=== PATIENT | male | born 1965 | race Caucasian/White ===

== ENCOUNTER 2016-09-22 10:48 | Inpatient (IN) | payer SELFPAY ==
[2016-09-22] VITALS (12 sets, daily range): BP systolic 101–135; BP diastolic 58–81
[~2016-09-22] VITALS: Ht 175.3 cm; Wt 72.6 kg
[~2016-09-22 10:48] MED LIST: ACET325T9 PO; ASPI-482 PO; ASPI325T4 PO; ATOR40TA PO; ATORVASTATIN CA80 MG PO; Aspirin PO; CARV3.122 PO; CLOP75TA PO; ISOS30TA4 PO; LISI-334 PO; METO25TA2 PO; NITR0.4T6 SL
[2016-09-22] MEDS ORDERED: NITROGLYCERIN SUBLINGUAL 0.4 MG BOTTLE OF 25. SL ONE (11:13)
[2016-09-22] MEDS ORDERED: ASPIRIN CHEWABLE 81 MG TABLET. PO ONE (11:15)
[2016-09-22] MEDS ORDERED: IV NORMAL SALINE 1000ML BAG 1,000 ML IV SCH ×2 (11:15→13:01)
[2016-09-22] MEDS ORDERED: NITROGLYCERIN SUBLINGUAL 0.4 MG BOTTLE OF 25. SL PRN (11:15)
[2016-09-22 11:26] LABS: BASO # 0.1 x10^3/uL (0.0-0.2); BASO % 1 % (0-3); EOS % 3 % (0-3); HEMATOCRIT 40.3 % (39.0-53.0); HEMOGLOBIN 13.4 g/dL (13.0-17.5); LYMPH % 18 % (24-48); MEAN CORPUSCULAR HEMOGLOBIN 34 pg (25-35); MEAN CORPUSCULAR HGB CONC 33 g/dL (31-37); MEAN CORPUSCULAR VOLUME 102 fL (79-100); MONO % 9 % (0-9); NEUT % 70 % (31-73); PLATELET COUNT 207 x10^3/uL (140-400); RED BLOOD COUNT 3.94 x10^6/uL (4.30-5.70); RED CELL DISTRIBUTION WIDTH 14.1 % (11.5-14.5); WHITE BLOOD COUNT 11.1 x10^3/uL (4.0-11.0)
[2016-09-22] MEDS: MORPHINE SULFATE 4 MG/ML DISP.SYRIN. IV/SQ PRN ×2 (11:33→13:16)
[2016-09-22 11:35] LABS: CALCIUM 9.2 mg/dL (8.5-10.1); GFR 78.8; POTASSIUM 4.9 mmol/L (3.5-5.1)
[2016-09-22 11:45] LABS: POTASSIUM ISTAT 4.8 mmol/L (3.5-5.0)
[2016-09-22] MEDS ORDERED: ONDANSETRON PF 4 MG/2 ML VIAL. IV ONE (11:45)
--- NOTE | 2016-09-22 11:47 | RAD ---
Exam: AP portable chest. History: Chest pain beginning this morning. Comparison: 04/16/2015. Findings: The heart and mediastinal structures are within normal limits for size. Lungs are without infiltrate. No pneumothorax or pleural effusion is appreciated. Impression: 1. No acute cardiopulmonary process.
--- NOTE | 2016-09-22 12:12 | EKG ---
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
[2016-09-22] MEDS ORDERED: NITROGLYCERIN OINT 1 GM PACKET. TP ONE (12:15)
--- NOTE | 2016-09-22 12:36 | PDOC2 ---
PITA ZAVALA CHEMICAL LAB TECHNICIAN 09/22/16 1236: CARDIAC CONSULT DATE OF CONSULT Date of Consult DATE: 09/22/16 TIME: 12:26 REASON FOR CONSULT Reason for Consult: Chest pain REFERRING PHYSICIAN Referring Physician: Cordelia SOURCE Source: Chart review, Patient HISTORY OF PRESENT ILLNESS HISTORY OF PRESENT ILLNESS This is a pleasant 51 yo male admitted for complains of chest pain. Reports that he woke up this morning feeling clammy then he started having retrosternal chest tightness that eventually radiated between his shoulder blades and heaviness to both his arms. No nausea or SOA but this felt like his symptoms from when he had LHC in 2014. It took 30 minutes before his discomfort started decreasing with use of 2 NTG then restarted back 30 minutes later and took another NTG and decided to call EMS. EMS EKG with noted changes. Upon admission his troponin was also mildly elevated and continuously been having intermittent chest pain. He has ran out of imdur 3 days ago and has not taken ASA for 2 weeks. PAST MEDICAL HISTORY Past Medical History Cardiovascular: CAD, HTN, CO (NSTEMI), Hyperlipidemia Pulmonary: No pertinent hx CENTRAL NERVOUS SYSTEM: Other (No pertinent history) GI: GERD Heme/Onc: No pertinent hx Hepatobiliary: No pertinent hx Psych: Anxiety, Other (alcohol abuse) Musculoskeletal: Other (No pertinent history) Rheumatologic: No pertinent hx Infectious disease: No pertinent hx ENT: No pertinent hx Renal/: No pertinent hx Endocrine: No pertinent hx Dermatology: No pertinent hx PAST SURGICAL HISTORY Past Surgical History 12/31/2014 Coronary artery disease s/p PCI to lcx 2.75/12 Bare metal stent and PCI of the ostial/proximal D1 and mid D1 with implantation of Xience 2.25/15 and Resolute 2.25/14 JAMA stents, respectively Hernia repair FAMILY HISTORY Family History Coronary Artery Disease (father) SOCIAL HISTORY Social History Smoke: <1 pack per day ALCOHOL: occasional Drugs: None Lives: Alone CURRENT MEDICATIONS CURRENT MEDICATIONS Current Medications Medications (Trade) Dose Ordered Sig/Kieran Route PRN Reason Start Time Stop Time Status Last Admin Dose Admin Aspirin (Children'S Aspirin) 324 mg 1X ONCE PO 09/22/16 11:15 09/22/16 11:20 DC 09/22/16 11:15 Morphine Sulfate 4 mg 4 mg PRN Q15MIN PRN IV/SQ PAIN GREATER THAN 3/10 09/22/16 11:15 09/23/16 11:14 09/22/16 11:33 Sodium Chloride (Iv Sodium Chloride 0.9% 1000ml Bag) 1,000 ml @ 1,000 mls/hr Q1H IV 09/22/16 11:15 09/22/16 12:14 DC 09/22/16 11:33 Nitroglycerin (Nitrostat) 0.4 mg PRN Q5MIN PRN SL CHEST PAIN 09/22/16 11:15 09/22/16 12:03 Lorazepam (Ativan) 2 mg 1X ONCE IV 09/22/16 11:45 09/22/16 11:46 DC 09/22/16 11:47 Ondansetron HCl (Zofran) 8 mg 1X ONCE IV 09/22/16 11:45 09/22/16 11:46 DC 09/22/16 11:47 Nitroglycerin (Nitro-Bid Oint) 1 inch 1X ONCE TP 09/22/16 12:15 09/22/16 12:16 DC 09/22/16 12:08 ALLERGIES ALLERGIES: Coded Allergies: No Known Drug Allergies (Unverified , 05/29/14) ROS Review of System 14 point ROS evaluated with pertinent positives noted per HPI PHYSICAL EXAM General: Alert, Oriented X3, Cooperative, No acute distress HEENT: Atraumatic, Mucous membr. moist/pink Lungs: Clear to auscultation, Normal air movement Heart: Regular rate (SR), Normal S1, Normal S2 Abdomen: Soft, No tenderness Extremities: No cyanosis, No edema Skin: No breakdown, No significant lesion Neuro: Normal speech, Sensation intact Psych/Mental Status: Mental status NL, Mood NL MUSCULOSKELETAL: Osteoarthritic changes both hands VITALS VITALS Vital Signs Date Time Temp Pulse Resp B/P Pulse Ox O2 Delivery O2 Flow Rate FiO2 09/22/16 12:08 111 138/83 09/22/16 10:49 98.4 20 99 Room Air 98.4 LABS Lab: Laboratory Tests Test 09/22/16 11:15 09/22/16 11:41 White Blood Count 11.1x10^3/uL (4.0-11.0) Red Blood Count 3.94x10^6/uL (4.30-5.70) Hemoglobin 13.4g/dL (13.0-17.5) Hematocrit 40.3% (39.0-53.0) Mean Corpuscular Volume 102fL (79-100) Mean Corpuscular Hemoglobin 34pg (25-35) Mean Corpuscular Hemoglobin Concent 33g/dL (31-37) Red Cell Distribution Width 14.1% (11.5-14.5) Platelet Count 207x10^3/uL (140-400) Neutrophils (%) (Auto) 70% (31-73) Lymphocytes (%) (Auto) 18% (24-48) Monocytes (%) (Auto) 9% (0-9) Eosinophils (%) (Auto) 3% (0-3) Basophils (%) (Auto) 1% (0-3) Neutrophils # (Auto) 7.8x10^3uL (1.8-7.7) Lymphocytes # (Auto) 2.0x10^3/uL (1.0-4.8) Monocytes # (Auto) 1.0x10^3/uL (0.0-1.1) Eosinophils # (Auto) 0.3x10^3/uL (0.0-0.7) Basophils # (Auto) 0.1x10^3/uL (0.0-0.2) Sodium Level 136mmol/L (136-145) Potassium Level 4.9mmol/L (3.5-5.1) Chloride Level 101mmol/L (98-107) Carbon Dioxide Level 25mmol/L (21-32) Anion Gap 10 (6-14) 18mmol/L (6-14) Blood Urea Nitrogen 24mg/dL (8-26) Creatinine 1.0mg/dL (0.7-1.3) Estimated GFR (Cockcroft-Gault) 78.8 Glucose Level 106mg/dL (70-99) 100mg/dL (70-99) Calcium Level 9.2mg/dL (8.5-10.1) Troponin I Quantitative 0.241ng/mL (0.000-0.055) YT-Uyy-P-Type Natriuretic Peptide 64pg/mL (0-124) Lipase 147U/L (73-393) Bedside Hemoglobin 14.3g/dL (14-18) Bedside Hematocrit 42% (37-52) Bedside Sodium 137mmol/L (135-145) Bedside Potassium 4.8mmol/L (3.5-5.0) Bedside Chloride 102mmol/L (98-110) Bedside Total CO2 23mmol/L (23-32) Bedside Blood Urea Nitrogen 24mg/dL (8-26) Bedside Creatinine 0.9mg/dL (0.5-1.4) Bedside Ionized Calcium (Carla) 1.16mmol/L (1.13-1.32) ECHOCARDIOGRAM ECHOCARDIOGRAM <Conclusion> Normal LV systolic function without significant regional wall motion abnormalities. EF 55% No significant valvular heart disease. DATE: 01/01/15 0931 STRESS TEST STRESS TEST Conclusion 1. No evidence of stress induced arrhythmias. 2. Normal LV perfusion at stress and rest. 3. Normal LVEF with stress. 4. Low risk study. DATE: 04/17/15 1335 HEART CATH HEART CATH FINAL DIAGNOSIS: 1. High risk unstable angina 2. Two vessel coronary artery disease (LAD, Lcx) 3. / bare metal stent patent in the proximal OM1. 4. Successful PCI of the ostial/proximal D1 and mid D1 with implantation of Xience 2.25/15 and Resolute 2.25/14 JAMA stents, respectively. 5. Angioseal closure of the [facility] arterial access site. RECOMMENDATIONS: 1. ASA 81mg daily indefinitely. 2. Plavix 75mg daily for at least 1 year, prefer indefinite therapy. 3. Atorvastatin 80mg daily 4. Aggressive risk factor modification with referral to cardiac rehab. 5. Follow up in Cardiology clinic in 4-[address] Marcano. DATE: 12/31/14 1624 ASSESSMENT/PLAN ASSESSMENT/PLAN 1. NSTEMI: ACS 2. CAD: 2 PCI/stent with last event in 12/2014 as noted above 3. HTN: controlled 4. HLP: not on goal 5. Tobaccoism 6. Possible alcoholism Recommendations 1. Discussed risks and benefits with pt and agreeable to proceed with [facility] 2. Secondary prevention to commence post [facility]. 3. Smoking cessation 4. Replace Mg Problems: LEATHA MARCANO MD 09/22/16 2234: CARDIAC CONSULT ALLERGIES ALLERGIES: Coded Allergies: No Known Drug Allergies (Unverified , 05/29/14) ASSESSMENT/PLAN ASSESSMENT/PLAN Pt. seen and examined. Agree with above MOTION STUDY TECHNICIAN note. 51 y.o man who presented with CP, dynamic EKG changes and positive troponin. He was taken emergently to the casting house lab[facility]. He was found to have a proxima/ostial LAD stenosis at the site of the bifurcation of D1 where a previous ostial stent was placed. Due to nature of prior stent/anatomy, there was difficulty advancing equipment through the LAD. Patient was started on anti-platelet therapy with heparin and tirofiban. He is doing well now without cp. Options of two vessel CABG versus high risk PCI with rotational atherectomy was discussed. Final decision pending patient preference. I discussed the case with Dr. Camacho of cardiac surgery. Will await patient decision, had extensive discussion with him about r/b/a to surgery. Problems: PITA ZAVALA APRN Sep 22, 2016 12:36 LEATHA MARCANO MD Sep 22, 2016 22:34
[2016-09-22 12:53] LABS: MAGNESIUM 1.3 mg/dL (1.8-2.4)
[2016-09-22 12:55] LABS: CHOLESTEROL/HDL RATIO 3.1
[2016-09-22] MEDS ORDERED: MIDAZOLAM HCL/PF 2 MG/2 ML VIAL. ONE (13:06)
[2016-09-22] MEDS ORDERED: fentaNYL PF VIAL 100 MCG/2 ML VIAL ONE (13:06)
[2016-09-22] MEDS ORDERED: VERAPAMIL 5 MG/2 ML VIAL. ONE (13:08)
[2016-09-22] MEDS ORDERED: HEPARIN for IV BOLUS 10,000 UNIT/10 ML VIAL. ONE (13:08)
[2016-09-22] MEDS ORDERED: NITROGLYCERIN 200 MCG/2 ML SYRINGE FOR CATH/VASC LAB. ONE (13:08)
[2016-09-22] MEDS ORDERED: IOHEXOL 300 MG/ML 100ML VIAL. ONE ×2 (13:30→14:34)
[2016-09-22] MEDS ORDERED: fentaNYL PF VIAL 100 MCG/2 ML VIAL IV PRN (13:30)
[2016-09-22] MEDS ORDERED: ONDANSETRON PF 4 MG/2 ML VIAL. IV PRN (13:30)
[2016-09-22] MEDS ORDERED: LIDOCAINE 2% 20 ML VIAL. ONE (13:30)
--- NOTE | 2016-09-22 13:45 | PHYS DOC ---
Past Medical History Past Medical History: CAD Past Surgical History: Other Additional Past Surgical Histo: cardiac stent placement Alcohol Use: Heavy Drug Use: None Adult General Chief Complaint Chief Complaint: CHEST PAIN HPI HPI Patient is a 51 year old male presenting to the emergency department for evaluation of substernal chest pressure radiating to both arms that started shortly prior to arrival which was relieved with nitroglycerin having the pain is coming back. He has shortness of breath and nausea with his symptoms but no vomiting or diaphoresis. He has a history of [address] David warren 1.5 years ago. He appears quite anxious and he admits that he drinks alcohol and did not drink since yesterday. Review of Systems Review of Systems Constitutional: Denies fever or chills [] Eyes: Denies change in visual acuity, redness, or eye pain [] HENT: Denies nasal congestion or sore throat [] Respiratory: Denies cough. + shortness of breath [] Cardiovascular: +CP GI: Denies abdominal pain. + nausea. No vomiting, bloody stools or diarrhea [] : Denies dysuria or hematuria [] Musculoskeletal: Denies back pain or joint pain [] Integument: Denies rash or skin lesions [] Neurologic: Denies headache, focal weakness or sensory changes [] Current Medications Current Medications Current Medications Medications (Trade) Dose Ordered Sig/Kieran Start Time Stop Time Status Last Admin Dose Admin Aspirin (Children'S Aspirin) 324 mg 1X ONCE 09/22/16 11:15 09/22/16 11:20 DC 09/22/16 11:15 324 MG Lorazepam (Ativan) 2 mg 1X ONCE 09/22/16 11:45 09/22/16 11:46 DC 09/22/16 11:47 2 MG Morphine Sulfate 4 mg 4 mg PRN Q15MIN PRN 09/22/16 11:15 09/23/16 11:14 09/22/16 13:16 4 MG Nitroglycerin (Nitrostat) 0.4 mg PRN Q5MIN PRN 09/22/16 11:15 09/22/16 12:03 0.4 MG Ondansetron HCl (Zofran) 8 mg 1X ONCE 09/22/16 11:45 09/22/16 11:46 DC 09/22/16 11:47 8 MG Sodium Chloride (Iv Sodium Chloride 0.9% 1000ml Bag) 1,000 ml @ 1,000 mls/hr Q1H 09/22/16 11:15 09/22/16 12:14 DC 09/22/16 11:33 1,000 MLS/HR Allergies Allergies Allergies Coded Allergies Type Severity Reaction Last Updated Verified No Known Drug Allergies 05/29/14 No Physical Exam Physical Exam Constitutional: Well developed, well nourished, no acute distress, non-toxic appearance. [] HENT: Normocephalic, atraumatic, bilateral external ears normal, oropharynx moist, no oral exudates, nose normal. [] Eyes: PERRLA, EOMI, conjunctiva normal, no discharge. [] Neck: Normal range of motion, no tenderness, supple, no stridor. [] Cardiovascular:Heart rate regular rhythm, no murmur [] Lungs & Thorax: Bilateral breath sounds clear to auscultation [] Abdomen: Bowel sounds normal, soft, no tenderness, no masses, no pulsatile masses. [] Skin: Warm, dry, no erythema, no rash. [] Back: No tenderness, no CVA tenderness. [] Extremities: No tenderness, no cyanosis, no clubbing, ROM intact, no edema. [] Neurologic: Alert and oriented X 3, normal motor function, normal sensory function, no focal deficits noted. [] Psychologic: Affect normal, judgement normal, mood normal. [] Current Patient Data Vital Signs Vital Signs Date Time Temp Pulse Resp B/P Pulse Ox O2 Delivery O2 Flow Rate FiO2 09/22/16 12:03 103 135/83 09/22/16 11:55 16 92 09/22/16 10:49 98.4 Room Air 98.4 Lab Values Laboratory Tests Test 09/22/16 11:15 09/22/16 11:41 White Blood Count 11.1x10^3/uL (4.0-11.0) H Red Blood Count 3.94x10^6/uL (4.30-5.70) L Hemoglobin 13.4g/dL (13.0-17.5) Hematocrit 40.3% (39.0-53.0) Mean Corpuscular Volume 102fL (79-100) H Mean Corpuscular Hemoglobin 34pg (25-35) Mean Corpuscular Hemoglobin Concent 33g/dL (31-37) Red Cell Distribution Width 14.1% (11.5-14.5) Platelet Count 207x10^3/uL (140-400) Neutrophils (%) (Auto) 70% (31-73) Lymphocytes (%) (Auto) 18% (24-48) L Monocytes (%) (Auto) 9% (0-9) Eosinophils (%) (Auto) 3% (0-3) Basophils (%) (Auto) 1% (0-3) Neutrophils # (Auto) 7.8x10^3uL (1.8-7.7) H Lymphocytes # (Auto) 2.0x10^3/uL (1.0-4.8) Monocytes # (Auto) 1.0x10^3/uL (0.0-1.1) Eosinophils # (Auto) 0.3x10^3/uL (0.0-0.7) Basophils # (Auto) 0.1x10^3/uL (0.0-0.2) Sodium Level 136mmol/L (136-145) Potassium Level 4.9mmol/L (3.5-5.1) Chloride Level 101mmol/L (98-107) Carbon Dioxide Level 25mmol/L (21-32) Anion Gap 10 (6-14) 18mmol/L (6-14) H Blood Urea Nitrogen 24mg/dL (8-26) Creatinine 1.0mg/dL (0.7-1.3) Estimated GFR (Cockcroft-Gault) 78.8 Glucose Level 106mg/dL (70-99) H 100mg/dL (70-99) H Calcium Level 9.2mg/dL (8.5-10.1) Magnesium Level 1.3mg/dL (1.8-2.4) L Troponin I Quantitative 0.241ng/mL (0.000-0.055) GS-Hnt-V-Type Natriuretic Peptide 64pg/mL (0-124) Triglycerides Level 57mg/dL (0-150) Cholesterol Level 206mg/dL (0-200) H LDL Cholesterol, Calculated 128mg/dL (0-100) H VLDL Cholesterol, Calculated 11mg/dL (0-40) Non-HDL Cholesterol Calculated 139mg/dL (0-129) H HDL Cholesterol 67mg/dL (40-60) H Cholesterol/HDL Ratio 3.1 Lipase 147U/L (73-393) POC Hemoglobin 14.3g/dL (14-18) POC Hematocrit 42% (37-52) POC Sodium 137mmol/L (135-145) POC Potassium 4.8mmol/L (3.5-5.0) POC Chloride 102mmol/L (98-110) POC Total CO2 23mmol/L (23-32) POC Blood Urea Nitrogen 24mg/dL (8-26) POC Creatinine 0.9mg/dL (0.5-1.4) POC Ionized Calcium (Carla) 1.16mmol/L (1.13-1.32) Laboratory Tests 09/22/16 11:15 Laboratory Tests 09/22/16 11:15 09/22/16 11:41 EKG EKG Normal sinus rhythm with normal axis and no deviation with no obvious ST elevation or depression. Radiology/Procedures Radiology/Procedures [] Course & Med Decision Making Course & Med Decision Making Patient with an STEMI and he was given aspirin and I spoke to the cardiology mid -level and he did not want any further anticoagulation at this time. Patient is going to go to [employer] [facility]. Dragon Disclaimer Dragon Disclaimer This electronic medical record was generated, in whole or in part, using a voice recognition dictation system. Departure Departure Impression: Primary Impression: NSTEMI (non-ST elevated myocardial infarction) Disposition: 09 ADMITTED INPATIENT Admitting Physician: Malachi Barton Condition: STABLE Referrals: BROOKS RAM (PCP) RANDY KNOWLES DO Sep 22, 2016 13:45
[2016-09-22] MEDS ORDERED: TIROFIBAN 12.5MG -0.9% NS 250 ML IV ONE (13:51)
--- NOTE | 2016-09-22 13:56 | ACF ---
Admission Forms Criteria MYOCARDIAL INFARCTION Clinical Indications for Admission to Inpatient Care (Place 'X' for any and all applicable criteria): Admission is indicated for 1 or more of the following (1)(2)(3)(4): [X]I. Acute VA [ ]II. Contraindications and/or Inappropriate clinical situations for Observational Care in patients with Myocardial Infarction, when ANY ONE of the following is required: [ ]a) Patient with High risk of cardiac embolism (e.g, patients with previous cardiac embolism, LVEF < 40%, age >75 and patients with prosthetic valve) 18 [ ]b) Patient with Moderate risk including DM patient, CAD and patient aged 65-75 18 [ ]c) Patient with any change in cardiac biomarker especially troponin should be managed as high risk in an inpatient setting 19 [ ]d) Physician judgement irrespective of ECG and other diagnostic findings 20 [ ]III.General contraindications and/or Inappropriate clinical situations for Observational Care in patients with Myocardial Infarction, when ANY ONE of the following is required: [ ]a) Prediction of prolongation of LOS based on ANY ONE of the following may be considered as a contraindication for observational care 2, 3, 4, 5, 6, 7, 8, 9, 10, 11 [ ]i) Age > 65 yrs. [ ]ii) Patient arriving by ambulance [ ]iii) Patient with high acuity [ ]iv) Patient requiring vital sign monitoring [ ]v) Patient on IV medication [ ]b) Systolic blood pressures greater than or equal to 180mmHg 3,12 [ ]c) Patient with altered mental status including delirium and other alteration of consciousness, (3) [ ]d) Patient whose discharge disposition will be to a custodial home or rehabilitation home should not be managed in Emergency Department Observation Unit. CMS rule requires 3 days hospital stay before such placement. 3,13 [ ]e) Patient with failure to thrive due to broad array of etiologies 3 ,16,17 [ ]f) Inability to ambulate 3,14 Extended stay beyond goal length of stay may be needed for (1)(18)(20)(24)(25): [ ]a) Hemodynamic instability, persisting symptoms after intensive medical management, or recurring severe, prolonged symptoms [ ]b) Intravascular procedural complications such as acute vessel closure, stent thrombosis, stent malposition, or vessel dissection (26)(27)(28) [ ]c) Extravascular procedural complications such as retroperitoneal hematoma , pericardial effusion, or cardiac tamponade [ ]d) Entry site complications causing bleeding, hematoma or distal ischemia and requiring ongoing monitoring, surgical repair or surgical thrombectomy. Dangerous arrhythmia [ ]e) Complicated percutaneous coronary intervention (e.g., unsuccessful percutaneous coronary intervention or percutaneous coronary intervention of non- campo vessel) [ ]f) Urgent or emergent surgery for complications of VA (e.g., ventricular rupture, valvular insufficiency) [ ]g) Surgical revascularization via coronary artery bypass graft [ ]h) Heart failure (e.g., pulmonary edema) [ ]i) Unstable pulmonary comorbidities, including COPD or pneumonia (31) [ ]j) Acute renal failure The original [employer] content created by [employer] has been revised. The portions of the content which have been revised are identified through the use of italic text or in bold, and [employer] [facility] [employer] has neither reviewed nor approved the modified material. All other unmodified content is copyright [employer] [facility] [employer] Please see references footnoted in the original [employer] [facility] [employer] edition 2016 Admission Criteria Met?: Yes RAYSA ROJAS Sep 22, 2016 13:56
[2016-09-22] MEDS ORDERED: TIROFIBAN 12.5MG -0.9% NS 250 ML IV PRN (13:57)
[2016-09-22] MEDS ORDERED: MAGNESIUM SULFATE 2GM 50 ML IV ONE (14:00)
[2016-09-22] MEDS ORDERED: HEPARIN for IV BOLUS 10,000 UNIT/10 ML VIAL. IV ONE (14:15)
[2016-09-22] MEDS ORDERED: LIDOCAINE 2% 20 ML VIAL. IJ ONE (14:15)
[2016-09-22] MEDS ORDERED: IOHEXOL 300 MG/ML 100ML VIAL. IART ONE (14:15)
[2016-09-22] MEDS ORDERED: MIDAZOLAM HCL/PF 2 MG/2 ML VIAL. IV ONE (14:15)
[2016-09-22] MEDS ORDERED: NITROGLYCERIN 200 MCG/2 ML SYRINGE FOR CATH/VASC LAB. IART ONE ×2 (14:15→14:38)
[2016-09-22] MEDS ORDERED: VERAPAMIL 5 MG/2 ML VIAL. IART ONE (14:15)
[2016-09-22] MEDS ORDERED: HEPARIN for IV BOLUS 10,000 UNIT/10 ML VIAL. IART ONE (14:15)
[2016-09-22] MEDS ORDERED: CONTRAST GIVEN MC PRN (14:30)
[2016-09-22] MEDS ORDERED: fentaNYL PF VIAL 100 MCG/2 ML VIAL IV ONE (14:30)
[2016-09-22] MEDS ORDERED: fentaNYL PF VIAL 100 MCG/2 ML VIAL IM ONE (14:30)
[2016-09-22] MEDS ORDERED: NITROGLYCERIN PREMIX 250 ML IV ONE (14:46)
[2016-09-22] MEDS ORDERED: HEPARIN for IV BOLUS 10,000 UNIT/10 ML VIAL. IV PRN (15:15)
[2016-09-22] MEDS: NITROGLYCERIN PREMIX 250 ML IV PRN (15:20)
[2016-09-22] MEDS ORDERED: HEPARIN 25,000UTS/500ML PREMIX 500 ML IV ONE (15:22)
[2016-09-22 15:28] LABS: PROTHROMBIN TIME PATIENT 12.4 SEC (11.7-14.0)
[2016-09-22] MEDS: HEPARIN 25,000UTS/500ML PREMIX 500 ML IV PRN (15:51)
[2016-09-22] MEDS ORDERED: TAMS0.4C2 PO (16:34)
[2016-09-22] MEDS ORDERED: ASPI-171 PO (16:34)
[2016-09-22] MEDS ORDERED: LISI10TA2 PO (16:34)
[2016-09-22] MEDS ORDERED: ATEN25TA PO (16:34)
--- NOTE | 2016-09-22 17:39 | CARD ---
APPROVED REPORT Procedure(s) performed: Coronary angiography PTCA D1, LAD HISTORY : The patient is a 51 year-old male with a history of . INDICATION The indication(s) include : non-STEMI . PROCEDURE NARRATIVE The patient was brought electively to the cardiac catheterization lab. A timeout was performed confi rming the patient's name, date of , procedure, and site of procedure. All necessary personnel w ere wearing the appropriate protective equipment and radiation monitor devices. After explaining the risks and benefits of the procedure and alternatives, informed consent was obtained. (See nursing no alize for medications administered). The right wrist was sterilely prepped and draped in the usual fas hion. The right wrist was infiltrated with 1 mL of 2% lidocaine for subcutaneous anesthesia. A 6 Fr ench Terumo glide sheath was inserted into the right radial artery without difficulty. Right and lef t coronary angiography was performed using a 6Fr TIG 4.0 catheter. HEMODYNAMICS: BP 104/76 CORONARY ANGIOGRAPHY: LM is a large caliber vessel with normal angiographic appearance. LAD is a large caliber vessel with a proximal 80% stenosis at the origin of the 1st diagonal. D1 is a moderate caliber vessel with a patent ostial/proximal stent, mid 50% stenosis followed by a p atent stent in the mid to distal portion. LCx is a small caliber non-dominant vessel with normal angiographic appearance. OM1 is a moderate caliber vessel with a widely patent proximal stent. RCA is a large caliber dominant vessel with normal angiographic appearance. RPDA and RPL are moderate to large caliber vessels with normal angiographic appearance. INTERVENTIONAL TECHNIQUE: Due to the presenting symptoms of chest pain, dynamic EKG changes suggestive of acute ischemia and an giographic findings and intervention was planned. Heparin and tirofiban were used for anti-coagulatio n. Next, through a 6 Kazakh EBU 3.5 guide catheter a 0.014 inch pro-water wire was advanced to the di stal LAD. Next a Terumo run-through wire was advanced to the distal first diagonal. Initial attempts to perform balloon angioplasty with a 3 mm x 20 mm balloon were unsuccessful. Subsequently a 2.0 mm b alloon was used to try to traverse the lesion but this was also unsuccessful. It was felt that there was likely stent protrusion from the ostium of the diagonal into the proximal LAD. The LAD was rewire d multiple times in an effort to avoid the stent struts and ultimately a 1.5 mm balloon was used to a ngioplasty the LAD stenosis. This resulted in stent shift and subtotal occlusion of the diagonal and therefore the diagonal vessel was rewired and gentle balloon angioplasty with a 2 mm balloon at 6 nelly resolved the subtotal occlusion and also improve the patient's significant ST changes that occurred with the subtotal occlusion of the first diagonal. Due to failed attempts at advancing a 1.5 mm balloon successfully without causing significant comprom ise of the diagonal vessel further intervention was deferred given that there was DONOVAN-3 flow in both the left anterior descending and first diagonal vessels. The guide catheter and wire were removed an d the right radial access site was covered with Terumo band and inflated to 15 mL of air. The patient was continued on a heparin drip and tirofiban drip. He was also administered intracoronary nitroglyc fern during the case and was also started on intravenous nitroglycerin at 20 mcg/kg/m. A preliminary cardiothoracic surgery consultation was obtained to determine further therapies. Conclusion 1. Two-vessel coronary artery disease involving the bifurcation of the LAD and first diagonal vessel. 2. Patent stents in the first obtuse marginal as well as the first diagonal. Recommendations Aggressive Medical Therapy Consideration of two-vessel bypass versus high risk PCI with rotational atherectomy.
[2016-09-22] MEDS: ATORVASTATIN CALCIUM 40 MG TABLET. PO SCH (21:09)
[2016-09-23] VITALS (12 sets, daily range): BP systolic 97–141; BP diastolic 59–88
--- NOTE | 2016-09-23 01:07 | HP ---
ADMIT DATE: 09/22/2016 CHIEF COMPLAINT: Chest pain. HISTORY OF PRESENT ILLNESS: The patient is a pleasant middle-aged white male who has known coronary artery disease. He already has one stent. He presented with chest pain. He states he has been having chronic angina for some time in fact he ran out of his nitro recently and now the pain is worsened. While in the ER, he was noted to have acute ST changes. He has now been taken emergently to the cath laboratory technician. I just arrived to the cath laboratory technician. Dr. Blackburn has just finished the cardiac cath. He has multivessel disease. He bypass surgery. PAST MEDICAL HISTORY: Coronary artery disease, diabetes, alcohol abuse, tobacco abuse. ALLERGIES: None. FAMILY HISTORY: Coronary artery disease. SOCIAL HISTORY: He does not take drugs, but he smokes and drinks. MEDICATIONS: Reviewed, please refer to the MRAD. REVIEW OF SYSTEMS: GENERAL: No history of weight change, weakness or fevers. SKIN: No bruising, hair changes or rashes. EYES: No blurred, double or loss of vision. NOSE AND THROAT: No history of nosebleeds, hoarseness or sore throat. HEART: He complaints of chest pain. LUNGS: Denies cough, hemoptysis, wheezing or shortness of breath. GASTROINTESTINAL: Denies changes in appetite, nausea, vomiting, diarrhea or constipation. GENITOURINARY: No history of frequency, urgency, hesitancy or nocturia. NEUROLOGIC: Denies history of numbness, tingling, tremor or weakness. PSYCHIATRIC: No history of panic, anxiety or depression. ENDOCRINE: No history of heat or cold intolerance, polyuria or polydipsia. EXTREMITIES: Denies muscle weakness, joint pain, pain on walking or stiffness. PHYSICAL EXAMINATION: VITAL SIGNS: Temperature afebrile, pulse 67, respirations 18, blood pressure 144/91. GENERAL: He is alert and cooperative, on the table, just finished his cath, he is a little anxious. HEART: Normal S1, S2. LUNGS: Clear, but diminished. ABDOMEN: Soft, positive bowel sounds. EXTREMITIES: No edema. SKIN: No rashes. PSYCHIATRIC: He seems a little anxious. VASCULAR: Good capillary refill. ENDOCRINE: No thyromegaly. LYMPHATICS: No cervical nodes. HEMATOPOIETIC: No bruising. LABORATORY DATA: Pending. EKG that was done in the ER showed acute ST changes. ASSESSMENT AND PLAN: [id number] progression of coronary artery disease with an acute event. The patient needs bypass surgery as stated above. We are going to consult Cardiovascular Surgery. For now, continue cardiac monitoring, serial enzymes, serial EKGs, anticoagulation with heparin, and antiplatelet therapy. PROGNOSIS: Guarded. HAYDEE ERIC DO DR: SHAHNAZ/betty JOB#: [id number] / [id number]
[2016-09-23 03:45] LABS: HEMATOCRIT 33.5 % (39.0-53.0); HEMOGLOBIN 11.2 g/dL (13.0-17.5); RED BLOOD COUNT 3.3 x10^6/uL (4.30-5.70); RED CELL DISTRIBUTION WIDTH 13.7 % (11.5-14.5); WHITE BLOOD COUNT 7.6 x10^3/uL (4.0-11.0)
[2016-09-23] MEDS: ISOSORBIDE MONONITRATE ER 30 MG TAB.ER.24H PO SCH (08:25)
[2016-09-23] MEDS: ASPIRIN 325 MG TABLET PO SCH (08:25)
--- NOTE | 2016-09-23 11:37 | PDOC ---
PROGRESS NOTES Chief Complaint Chief Complaint cc: chest pain, sob CAD with prior PCI/stenting diabetes, alcohol abuse tobacco abuse. History of Present Illness History of Present Illness patient seen and evaluted. no chest pain. discuss w/ nurse, family Vitals Vitals Vital Signs Date Time Temp Pulse Resp B/P Pulse Ox O2 Delivery O2 Flow Rate FiO2 09/23/16 08:25 82 125/83 09/23/16 08:00 98.0 12 98 Room Air 98.0 Physical Exam General: Alert, Oriented X3, Cooperative, No acute distress, Other (appear carl ) Heart: Regular rate (SR), Normal S1, Normal S2 Lungs: Clear, Other (negative accessory muscle use ) Abdomen: Soft, No tenderness, Other (obese) Extremities: No cyanosis, No edema Skin: No breakdown, No significant lesion Labs LABS Laboratory Tests Test 09/22/16 11:38 09/22/16 11:41 09/22/16 14:39 09/22/16 21:00 Bedside Troponin I 0.11ng/ml (<0.08) Bedside Hemoglobin 14.3g/dL (14-18) Bedside Hematocrit 42% (37-52) Bedside Sodium 137mmol/L (135-145) Bedside Potassium 4.8mmol/L (3.5-5.0) Bedside Chloride 102mmol/L (98-110) Bedside Total CO2 23mmol/L (23-32) Anion Gap 18mmol/L (6-14) Bedside Blood Urea Nitrogen 24mg/dL (8-26) Bedside Creatinine 0.9mg/dL (0.5-1.4) Glucose Level 100mg/dL (70-99) Bedside Ionized Calcium (Carla) 1.16mmol/L (1.13-1.32) Activated Clotting Time 268sec (92-181) Heparin Anti-Xa Act, Unfractionated 0.36IU/mL (0.30-0.70) Troponin I Quantitative 0.255ng/mL (0.000-0.055) Test 09/23/16 03:30 09/23/16 10:10 White Blood Count 7.6x10^3/uL (4.0-11.0) Red Blood Count 3.30x10^6/uL (4.30-5.70) Hemoglobin 11.2g/dL (13.0-17.5) Hematocrit 33.5% (39.0-53.0) Mean Corpuscular Volume 101fL (79-100) Mean Corpuscular Hemoglobin 34pg (25-35) Mean Corpuscular Hemoglobin Concent 34g/dL (31-37) Red Cell Distribution Width 13.7% (11.5-14.5) Platelet Count 170x10^3/uL (140-400) Heparin Anti-Xa Act, Unfractionated 0.24IU/mL (0.30-0.70) 0.25IU/mL (0.30-0.70) Troponin I Quantitative 0.296ng/mL (0.000-0.055) Review of Systems Review of Systems (+) generalized weakness Denies chest pain Assessment and Plan Assessmemt and Plan Problems Medical Problems: (1) NSTEMI (non-ST elevated myocardial infarction) Status: Acute Assessment/plan: 1.) chest pain 2.) CAD w/ prior stent 3.) Diabetes 4.) alchool use disorder 5.) current tobacco use Plan: 1.) recheck AM labs 2.) PT/OT 3.) appreciate subspecialty input 4.) monitor for withdrawal symptoms. ativan prn with multivitamins continue tobacco cessation counseling 5.) Scheduled CABG for monday per CT surgery 6.) probabl CAD with prior PCI/stenting diabetes, alcohol abuse tobacco abuse. Problems: Comment Review of Relevant I have reviewed the following items mike (where applicable) has been applied. Labs Laboratory Tests Test 09/22/16 11:15 09/22/16 11:38 09/22/16 11:41 09/22/16 14:39 White Blood Count 11.1x10^3/uL (4.0-11.0) Red Blood Count 3.94x10^6/uL (4.30-5.70) Hemoglobin 13.4g/dL (13.0-17.5) Hematocrit 40.3% (39.0-53.0) Mean Corpuscular Volume 102fL (79-100) Mean Corpuscular Hemoglobin 34pg (25-35) Mean Corpuscular Hemoglobin Concent 33g/dL (31-37) Red Cell Distribution Width 14.1% (11.5-14.5) Platelet Count 207x10^3/uL (140-400) Neutrophils (%) (Auto) 70% (31-73) Lymphocytes (%) (Auto) 18% (24-48) Monocytes (%) (Auto) 9% (0-9) Eosinophils (%) (Auto) 3% (0-3) Basophils (%) (Auto) 1% (0-3) Neutrophils # (Auto) 7.8x10^3uL (1.8-7.7) Lymphocytes # (Auto) 2.0x10^3/uL (1.0-4.8) Monocytes # (Auto) 1.0x10^3/uL (0.0-1.1) Eosinophils # (Auto) 0.3x10^3/uL (0.0-0.7) Basophils # (Auto) 0.1x10^3/uL (0.0-0.2) Prothrombin Time 12.4SEC (11.7-14.0) Prothromb Time International Ratio 1.0 (0.8-1.1) Sodium Level 136mmol/L (136-145) Potassium Level 4.9mmol/L (3.5-5.1) Chloride Level 101mmol/L (98-107) Carbon Dioxide Level 25mmol/L (21-32) Anion Gap 10 (6-14) 18mmol/L (6-14) Blood Urea Nitrogen 24mg/dL (8-26) Creatinine 1.0mg/dL (0.7-1.3) Estimated GFR (Cockcroft-Gault) 78.8 Glucose Level 106mg/dL (70-99) 100mg/dL (70-99) Calcium Level 9.2mg/dL (8.5-10.1) Magnesium Level 1.3mg/dL (1.8-2.4) Troponin I Quantitative 0.241ng/mL (0.000-0.055) OQ-Lce-M-Type Natriuretic Peptide 64pg/mL (0-124) Triglycerides Level 57mg/dL (0-150) Cholesterol Level 206mg/dL (0-200) LDL Cholesterol, Calculated 128mg/dL (0-100) VLDL Cholesterol, Calculated 11mg/dL (0-40) Non-HDL Cholesterol Calculated 139mg/dL (0-129) HDL Cholesterol 67mg/dL (40-60) Cholesterol/HDL Ratio 3.1 Lipase 147U/L (73-393) Bedside Troponin I 0.11ng/ml (<0.08) Bedside Hemoglobin 14.3g/dL (14-18) Bedside Hematocrit 42% (37-52) Bedside Sodium 137mmol/L (135-145) Bedside Potassium 4.8mmol/L (3.5-5.0) Bedside Chloride 102mmol/L (98-110) Bedside Total CO2 23mmol/L (23-32) Bedside Blood Urea Nitrogen 24mg/dL (8-26) Bedside Creatinine 0.9mg/dL (0.5-1.4) Bedside Ionized Calcium (Carla) 1.16mmol/L (1.13-1.32) Activated Clotting Time 268sec (92-181) Test 09/22/16 21:00 09/23/16 03:30 09/23/16 10:10 Heparin Anti-Xa Act, Unfractionated 0.36IU/mL (0.30-0.70) 0.24IU/mL (0.30-0.70) 0.25IU/mL (0.30-0.70) Troponin I Quantitative 0.255ng/mL (0.000-0.055) 0.296ng/mL (0.000-0.055) White Blood Count 7.6x10^3/uL (4.0-11.0) Red Blood Count 3.30x10^6/uL (4.30-5.70) Hemoglobin 11.2g/dL (13.0-17.5) Hematocrit 33.5% (39.0-53.0) Mean Corpuscular Volume 101fL (79-100) Mean Corpuscular Hemoglobin 34pg (25-35) Mean Corpuscular Hemoglobin Concent 34g/dL (31-37) Red Cell Distribution Width 13.7% (11.5-14.5) Platelet Count 170x10^3/uL (140-400) Laboratory Tests Test 09/22/16 11:38 09/22/16 11:41 09/22/16 14:39 09/22/16 21:00 Bedside Troponin I 0.11ng/ml (<0.08) Bedside Hemoglobin 14.3g/dL (14-18) Bedside Hematocrit 42% (37-52) Bedside Sodium 137mmol/L (135-145) Bedside Potassium 4.8mmol/L (3.5-5.0) Bedside Chloride 102mmol/L (98-110) Bedside Total CO2 23mmol/L (23-32) Anion Gap 18mmol/L (6-14) Bedside Blood Urea Nitrogen 24mg/dL (8-26) Bedside Creatinine 0.9mg/dL (0.5-1.4) Glucose Level 100mg/dL (70-99) Bedside Ionized Calcium (Carla) 1.16mmol/L (1.13-1.32) Activated Clotting Time 268sec (92-181) Heparin Anti-Xa Act, Unfractionated 0.36IU/mL (0.30-0.70) Troponin I Quantitative 0.255ng/mL (0.000-0.055) Test 09/23/16 03:30 09/23/16 10:10 White Blood Count 7.6x10^3/uL (4.0-11.0) Red Blood Count 3.30x10^6/uL (4.30-5.70) Hemoglobin 11.2g/dL (13.0-17.5) Hematocrit 33.5% (39.0-53.0) Mean Corpuscular Volume 101fL (79-100) Mean Corpuscular Hemoglobin 34pg (25-35) Mean Corpuscular Hemoglobin Concent 34g/dL (31-37) Red Cell Distribution Width 13.7% (11.5-14.5) Platelet Count 170x10^3/uL (140-400) Heparin Anti-Xa Act, Unfractionated 0.24IU/mL (0.30-0.70) 0.25IU/mL (0.30-0.70) Troponin I Quantitative 0.296ng/mL (0.000-0.055) Medications Current Medications Nitroglycerin (Nitrostat) 0.4 mg STK-MED ONCE SL ; Start 09/22/16 at 11:13; Stop 09/22/16 at 11:14; Status DC Aspirin (Children'S Aspirin) 324 mg 1X ONCE PO Last administered on 09/22/16t 11:15; Start 09/22/16 at 11:15; Stop 09/22/16 at 11:20; Status DC Morphine Sulfate 4 mg 4 mg PRN Q15MIN PRN IV/SQ PAIN GREATER THAN 3/10 Last administered on 09/22/16 13:16; Start 09/22/16 at 11:15; Stop 09/23/16 at 11:14 ; Status DC Sodium Chloride (Iv Sodium Chloride 0.9% 1000ml Bag) 1,000 ml @ 1,000 mls/hr Q1H IV Last administered on 09/22/16 11:33; Start 09/22/16 at 11:15; Stop at 12:14; Status DC Nitroglycerin (Nitrostat) 0.4 mg PRN Q5MIN PRN SL CHEST PAIN Last administered on 09/22/16 12:03; Start 09/22/16 at 11:15 Lorazepam (Ativan) 2 mg 1X ONCE IV Last administered on 09/22/16 11:47; Start 09/22/16 at 11:45; Stop 09/22/16 at 11:46; Status DC Ondansetron HCl (Zofran) 8 mg 1X ONCE IV Last administered on 09/22/16 11:47 ; Start 09/22/16 at 11:45; Stop 09/22/16 at 11:46; Status DC Nitroglycerin 1 inch 1 inch 1X ONCE TP Last administered on 09/22/16 12:08; Start 09/22/16 at 12:15; Stop 09/22/16 at 12:16; Status DC Sodium Chloride 1,000 ml @ 0 mls/hr Q0M IV ; Start 09/22/16 at 13:01; Stop at 13:00 Magnesium Sulfate/ Dextrose (Magnesium Sulfate PREMIX 2GM) 50 ml @ 25 mls/hr 1X ONCE IV Last administered on 09/22/16 13:17; Start 09/22/16 at 14:00; Stop 09/22/16 at 15:59; Status DC Atorvastatin Calcium (Lipitor) 80 mg QHS PO Last administered on 09/22/16 21: 09; Start 09/22/16 at 21:00 Fentanyl Citrate (Fentanyl 2ml Vial) 100 mcg STK-MED ONCE .ROUTE ; Start at 13:06; Stop 09/22/16 at 13:07; Status DC Midazolam HCl (Versed) 2 mg STK-MED ONCE .ROUTE ; Start 09/22/16 at 13:06; Stop 09/22/16 at 13:07; Status DC Nitroglycerin (Nitroglycerin) 200 mcg STK-MED ONCE .ROUTE ; Start 09/22/16 at 13 :08; Stop 09/22/16 at 13:09; Status DC Verapamil HCl (Verapamil) 5 mg STK-MED ONCE .ROUTE ; Start 09/22/16 at 13:08; Stop 09/22/16 at 13:09; Status DC Heparin Sodium (Porcine) (Heparin Sodium) 10,000 unit STK-MED ONCE .ROUTE ; Start 09/22/16 at 13:08; Stop 09/22/16 at 13:09; Status DC Ondansetron HCl (Zofran) 4 mg PRN Q8HRS PRN IV NAUSEA/VOMITING; Start 09/22/16 at 13:30; Stop 09/23/16 at 13:29 Fentanyl Citrate (Fentanyl 2ml Vial) 50 mcg PRN Q2HR PRN IV PAIN; Start at 13:30; Stop 09/23/16 at 13:29 Iohexol 100 ml 100 ml STK-MED ONCE .ROUTE ; Start 09/22/16 at 13:30; Stop at 13:31; Status DC Heparin Sodium/ Sodium Chloride 1,000 ml @ As Directed STK-MED ONCE .ROUTE ; Start 09/22/16 at 13:30; Stop 09/22/16 at 13:31; Status DC Lidocaine HCl 20 ml 20 ml STK-MED ONCE .ROUTE ; Start 09/22/16 at 13:30; Stop at 13:31; Status DC Heparin Sodium/ Sodium Chloride 500 ml @ As Directed STK-MED ONCE .ROUTE ; Start 09/22/16 at 13:32; Stop 09/22/16 at 13:33; Status DC Tirofiban/Sodium Chloride (Aggrastat 12.5 Mg/250 ml Premix) 250 ml @ As Directed STK-MED ONCE IV ; Start 09/22/16 at 13:51; Stop 09/22/16 at 13:52; Status DC Nitroglycerin (Nitroglycerin) 200 mcg 1X ONCE IART Last administered on t 15:13; Start 09/22/16 at 14:15; Stop 09/22/16 at 14:16; Status DC Verapamil HCl (Verapamil) 2.5 mg 1X ONCE IART Last administered on 09/22/16 15:15; Start 09/22/16 at 14:15; Stop 09/22/16 at 14:16; Status DC Heparin Sodium (Porcine) (Heparin Sodium) 2,500 unit 1X ONCE IART Last administered on 09/22/16 15:18; Start 09/22/16 at 14:15; Stop 09/22/16 at 14:16 ; Status DC Heparin Sodium/ Sodium Chloride 1,000 unit 1X ONCE IART Last administered on 15:16; Start 09/22/16 at 14:15; Stop 09/22/16 at 14:16; Status DC Heparin Sodium/ Sodium Chloride 1,000 unit 1X ONCE IART Last administered on 15:16; Start 09/22/16 at 14:15; Stop 09/22/16 at 14:16; Status DC Midazolam HCl (Versed) 2 mg 1X ONCE IV Last administered on 09/22/16 15:14; Start 09/22/16 at 14:15; Stop 09/22/16 at 14:16; Status DC Iohexol (Omnipaque 300 Mg/ml) 100 ml 1X ONCE IART Last administered on 15:15; Start 09/22/16 at 14:15; Stop 09/22/16 at 14:16; Status DC Heparin Sodium (Porcine) (Heparin Sodium) 4,000 unit 1X ONCE IV Last administered on 09/22/16 15:19; Start 09/22/16 at 14:15; Stop 09/22/16 at 14:16 ; Status DC Lidocaine HCl 20 ml 20 ml 1X ONCE IJ Last administered on 09/22/16 15:15; Start 09/22/16 at 14:15; Stop 09/22/16 at 14:16; Status DC Tirofiban/Sodium Chloride (Aggrastat 12.5 Mg/250 ml Premix) 250 ml @ 0 mls/hr CONT PRN IV PER PROTOCOL Last administered on 09/22/16 15:17; Start 09/22/16 at 13:57; Stop 09/23/16 at 07:56; Status DC Info (Do NOT chart on this entry -- for MONITORING) 1 each PRN DAILY PRN MC SEE COMMENTS; Start 09/22/16 at 14:30; Stop 09/24/16 at 14:29 Fentanyl Citrate (Fentanyl 2ml Vial) 50 mcg 1X ONCE IM ; Start 09/22/16 at 14: 30; Stop 09/22/16 at 14:31; Status Cancel Iohexol (Omnipaque 300 Mg/ml) 100 ml STK-MED ONCE .ROUTE ; Start 09/22/16 at 14: 34; Stop 09/22/16 at 14:35; Status DC Nitroglycerin 200 mcg 200 mcg 1X ONCE IART Last administered on 09/22/16 15: 13; Start 09/22/16 at 14:38; Stop 09/22/16 at 14:43; Status DC Nitroglycerin/ Dextrose 250 ml @ As Directed STK-MED ONCE IV ; Start 09/22/16 at 14:46; Stop 09/22/16 at 14:47; Status DC Nitroglycerin/ Dextrose 250 ml @ 0 mls/hr CONT PRN IV SEE I/O RECORD Last administered on 09/22/16 15:20; Start 09/22/16 at 15:00 Heparin Sodium/ Dextrose 500 ml @ 18 mls/hr CONT PRN IV SEE I/O RECORD Last administered on 09/22/16 15:51; Start 09/22/16 at 15:15 Heparin Sodium (Porcine) 1850 unit 1,850 unit PRN Q6HRS PRN IV FOR UFH LEVEL LESS THAN 0.2; Start 09/22/16 at 15:15 Heparin Sodium/ Dextrose 500 ml @ As Directed STK-MED ONCE IV ; Start 09/22/16 at 15:22; Stop 09/22/16 at 15:23; Status DC Fentanyl Citrate (Fentanyl 2ml Vial) 50 mcg 1X ONCE IV Last administered on 14:30; Start 09/22/16 at 14:30; Stop 09/22/16 at 16:14; Status DC Aspirin (Jocelyn Aspirin) 325 mg DAILYWBKFT PO Last administered on 09/23/16 08: 25; Start 09/23/16 at 08:00 Isosorbide Mononitrate (Imdur) 30 mg DAILY PO Last administered on 09/23/16 08 :25; Start 09/23/16 at 09:00 Active Scripts Active NITROGLYCERIN SubLingual (Nitroglycerin) 0.4 Mg Tab.subl 1 Tab SL UD Isosorbide Mononitrate Er (Isosorbide Mononitrate) 30 Mg Tab.er.24h 1 Tab PO DAILY Reported Tamsulosin Hcl 0.4 Mg Cap.er.24h 0.4 Mg PO DAILY Lisinopril 10 Mg Tablet 1 Tab PO DAILY Atenolol 25 Mg Tablet 1 Tab PO DAILY Lo-Dose Aspirin EC (Aspirin) 81 Mg Tablet.dr 81 Mg PO Atorvastatin Calcium 80 Mg Tablet 40 Mg PO HS Vitals/I & O Vital Sign - Last 24 Hours 09/22/16 09/22/16 09/22/16 09/22/16 11:55 12:03 12:08 12:30 Pulse 88 103 111 96 Resp 16 16 B/P 138/83 135/83 138/83 107/58 Pulse Ox 92 09/22/16 09/22/16 09/22/16 09/22/16 14:30 15:00 15:15 15:30 Pulse 82 97 97 Resp 16 20 B/P 135/81 116/64 Pulse Ox 98 98 98 O2 Delivery Room Air Room Air Room Air 09/22/16 09/22/16 09/22/16 09/22/16 16:00 16:00 16:00 16:30 Temp 98.2 98.2 98.2 98.2 Pulse 97 94 B/P 116/64 102/60 102/61 Pulse Ox 98 98 99 O2 Delivery Room Air Room Air Room Air Room Air 09/22/16 09/22/16 09/22/16 09/22/16 17:00 17:30 18:00 19:00 Pulse 86 76 92 86 Resp 22 B/P 111/68 112/75 122/67 101/58 Pulse Ox 98 98 99 94 O2 Delivery Room Air Room Air Room Air Room Air 09/22/16 09/22/16 09/22/16 09/22/16 20:00 20:00 21:00 22:00 Temp 98.2 98.2 Pulse 78 92 76 Resp 20 23 11 B/P 118/73 104/63 105/72 Pulse Ox 98 96 95 O2 Delivery Room Air Room Air Room Air Room Air 09/22/16 09/23/16 09/23/16 09/23/16 23:00 00:00 00:00 01:00 Temp 98.5 98.5 Pulse 80 82 80 Resp 13 15 B/P 109/66 110/60 113/65 Pulse Ox 95 94 96 O2 Delivery Room Air Room Air Room Air Room Air 09/23/16 09/23/16 09/23/16 09/23/16 02:00 03:00 04:00 04:00 Temp 98.2 98.2 Pulse 88 84 66 Resp 18 20 B/P 118/68 101/63 106/61 Pulse Ox 97 99 93 O2 Delivery Room Air Room Air Room Air Room Air 09/23/16 09/23/16 09/23/16 09/23/16 05:00 06:00 07:00 08:00 Temp 98.0 98.0 Pulse 61 61 61 62 Resp 12 13 10 12 B/P 108/74 97/59 112/74 125/83 Pulse Ox 96 95 98 98 O2 Delivery Room Air Room Air Room Air Room Air 09/23/16 08:25 Pulse 82 B/P 125/83 Intake and Output 09/22/16 09/22/16 09/23/16 14:59 22:59 06:59 Intake Total 970 ml 1772 ml Output Total 1500 ml 1350 ml Balance -530 ml 422 ml HAYDEE ERIC III DO Sep 23, 2016 11:37
--- NOTE | 2016-09-23 11:38 | CARD ---
APPROVED REPORT EXAM: Two-dimensional and M-mode echocardiogram with Doppler and color Doppler. Other Information Quality : GoodHR: 86bpm Rhythm : NSR INDICATION Chest Pain RISK FACTORS Family History 2D DIMENSIONS RVDd2.4 (2.9-3.5cm)Left Atrium(2D)3.7 (1.6-4.0cm) IVSd0.8 (0.7-1.1cm)Aortic Root(2D)2.9 (2.0-3.7cm) LVDd4.4 (3.9-5.9cm)LVOT Diameter2.4 (1.8-2.4cm) PWd0.8 (0.7-1.1cm)LVDs2.9 (2.5-4.0cm) FS (%) 33.5 %SV55.2 ml LVEF(%)62.5 (>50%) Aortic Valve AoV Peak Mo.164.0cm/sAoV VTI24.4cm AO Peak GR.10.8mmHgLVOT VTI 16.18cm AO Mean GR.5mmHg Mitral Valve MV E Velocity0.0cm/sMV E Peak Gr.4mmHg MV DECEL [id number] A Cfzdijwb04.1cm/s MV E Mean Gr.3mmHgE/A Ratio0.0 MV A [id number] TDI Lateral E' P. V11.97cm/sMedial E' P. V9.91cm/s E/Lateral E'0.0E/Medial E'0.0 Pulmonary Vein S1 Eewwzcan05.2cm/sS2 Kirxakhc20.40cm/s D2 Uxvbsvlb14.4cm/sPVa [id number] LEFT VENTRICLE The left ventricle is normal size. There is normal left ventricular wall thickness. The left ventricu lar systolic function is normal and the ejection fraction is within normal range. The Ejection Fracti on is 60-65%. There is normal LV segmental wall motion. The left ventricular diastolic function and f illing is normal for age. RIGHT VENTRICLE The right ventricle is normal size. There is normal right ventricular wall thickness. The right ventr icular systolic function is normal. ATRIA The left atrium size is normal. The right atrium size is normal. The interatrial septum is intact wit h no evidence for an atrial septal defect or patent foramen ovale as noted on 2-D or Doppler imaging. AORTIC VALVE The aortic valve is normal in structure and function. Doppler and Color Flow revealed no significant aortic regurgitation. There is no significant aortic valvular stenosis. MITRAL VALVE There is no evidence of mitral valve prolapse. There is no mitral valve stenosis. Doppler and Color F low revealed mild mitral regurgitation. TRICUSPID VALVE The tricuspid valve is normal in structure and function. Doppler and Color Flow revealed no tricuspid valve regurgitation noted. There is no pulmonary hypertension. There is no tricuspid valve stenosis. PULMONIC VALVE Doppler and Color Flow revealed no pulmonic valvular regurgitation. There is no pulmonic valvular hans nosis. GREAT VESSELS The aortic root is normal in size. The ascending aorta is normal in size. The IVC was obscured, unabl e to assess. PERICARDIAL EFFUSION There is no evidence of significant pericardial effusion. Critical Notification Critical Value: No <Conclusion> The left ventricular systolic function is normal and the ejection fraction is within normal range. Th e Ejection Fraction is 60-65%. There is normal LV segmental wall motion.
--- NOTE | 2016-09-23 13:45 | RAD ---
CT of the chest without contrast, 09/23/2016: History: Preop evaluation for CABG Noncontrast scans were obtained as requested. The thoracic aorta is of normal caliber. There are radiopacities related to the coronary arteries which probably represent a combination of stents and calcification. The heart is not enlarged. No mediastinal adenopathy is seen. There are a few scattered linear parenchymal scars in the lungs. No pulmonary mass or significant consolidation is seen. There is no evidence of pleural fluid. The liver is of lower than normal density in a diffuse pattern compatible with fatty change. The gallbladder is somewhat contracted. There is mild bilateral renal cortical scarring. IMPRESSION: 1. No acute chest abnormality is detected. 2. Hepatic steatosis PQRS Compliance Statement: One or more of the following individualized dose reduction techniques were utilized for this examination: 1. Automated exposure control 2. Adjustment of the mA and/or kV according to patient size 3. Use of iterative reconstruction technique
--- NOTE | 2016-09-23 14:46 | PDOC ---
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 09/23/16 1446: CARDIO Progress Notes Date and Time Date of Service 09/23/16 Time of Evaluation 1230 Subjective Subjective: No Chest Pain, No shortness of breath, No Palpitations Comments: no complaints Vitals Vitals Vital Signs Date Time Temp Pulse Resp B/P Pulse Ox O2 Delivery O2 Flow Rate FiO2 09/23/16 11:44 98.3 84 16 112/70 94 Room Air 98.3 Weight Weight [ ] Input and Output Intake and Output Intake and Output 09/23/16 07:00 Intake Total 2742 ml Output Total 2850 ml Balance -108 ml Intake Oral 1210 ml IV Total 1532 ml Output Urine Total 2850 ml Laboratory Labs Laboratory Tests Test 09/22/16 14:39 09/22/16 21:00 09/23/16 03:30 09/23/16 10:10 Activated Clotting Time 268sec (92-181) Heparin Anti-Xa Act, Unfractionated 0.36IU/mL (0.30-0.70) 0.24IU/mL (0.30-0.70) 0.25IU/mL (0.30-0.70) Troponin I Quantitative 0.255ng/mL (0.000-0.055) 0.296ng/mL (0.000-0.055) White Blood Count 7.6x10^3/uL (4.0-11.0) Red Blood Count 3.30x10^6/uL (4.30-5.70) Hemoglobin 11.2g/dL (13.0-17.5) Hematocrit 33.5% (39.0-53.0) Mean Corpuscular Volume 101fL (79-100) Mean Corpuscular Hemoglobin 34pg (25-35) Mean Corpuscular Hemoglobin Concent 34g/dL (31-37) Red Cell Distribution Width 13.7% (11.5-14.5) Platelet Count 170x10^3/uL (140-400) Physical Exam HEENT: Neck Supple W Full Motion Chest: Symmetric LUNGS: Clear to Auscultation Heart: S1S2, RRR, no murmurs Abdomen: Soft N/T Extremities: No Edema Neurology: alert, oriented, follow commands Assessment Assessment 1. NSTEMI 2. CAD; cath notable for two-vessel disease 3. Hypertension 4. Hyperlipidemia 5. Tobaccoism Recommendation Echo with preserved LV function CTS following: plan for two- vessel CABG versus high risk PCI on Monday; patient leaning toward CABG, but will make final decision later today. Continue nitro and heparin gtt, along with antiplatelet therapy Add low-dose BB. Recheck Mg. LEATHA MARCANO MD 09/23/16 1051: CARDIO Progress Notes Plan Plan Pt. seen and examined. Agree with above MAR[facility] STEWARD note. No acute events overnight. Minimal troponin elevation. Normal EF on echo. Normal cardiac exam today. Continue asa, b-alicja, heparin gtt and statin, Imdur and NTG gtt. Await CABG on monday (SOUTH to LAD and SVG to Diag. Will continue close monitoring. Ok to transfer to floor. EUNICE NATION APRN Sep 23, 2016 14:46 LEATHA MARCANO MD Sep 23, 2016 18:41
[2016-09-23] MEDS ORDERED: ANTI-COAG MONITOR BY PHARMACY. MC PRN (15:15)
--- NOTE | 2016-09-23 16:17 | PDOC2 ---
CONSULT Date of Consult Date of Consult DATE: 09/23/16 TIME: 16:16 Reason for Consult Reason for Consult: Non-STEMI with failed PCI Referring Physician Referring Physician: Dr Blackburn Identification/Chief Complaint Chief Complaint Chest pain Source Source: Chart review, Patient History of Present Illness Reason for Visit: The patient is a pleasant 51-year-old male who presented to [facility] yesterday after developing central chest pain which radiated to his neck and both upper extremities. The chest pain was severe and associated with diaphoresis, nausea and clamminess. He had some minor ST changes and a troponin bump. He has a history of a PCI to the left circumflex and the first diagonal in 2014. He reports that his symptoms were similar to those he had back in 2014. He went to the physical laboratory assistant yesterday and the coronary angiogram showed a proximal 80% LAD stenosis at the origin of the diagonal. An attempt at PCI was unsuccessful most likely because of diagonal stent protrusion into the LAD. He also has a subtotal occlusion of the diagonal stent. The patient is currently chest pain-free. Had a transthoracic echo which showed normal left ventricular function and no valvular disease. I was consulted to consider the patient for surgical coronary revascularization. Past Medical History Cardiovascular: CAD, HTN, [place], Hyperlipidemia Pulmonary: No pertinent hx CENTRAL NERVOUS SYSTEM: Other GI: GERD Heme/Onc: No pertinent hx Hepatobiliary: No pertinent hx Psych: Anxiety, Other Musculoskeletal: Other Rheumatologic: No pertinent hx Infectious disease: No pertinent hx Renal/: No pertinent hx Endocrine: No pertinent hx Past Surgical History Past Surgical History: Other Family History Family History: Coronary Artery Disease Social History ALCOHOL: occassional Drugs: None Lives: Alone Current Problem List Problem List Problems Medical Problems: (1) NSTEMI (non-ST elevated myocardial infarction) Status: Acute Current Medications Current Medications Current Medications Nitroglycerin (Nitrostat) 0.4 mg STK-MED ONCE SL ; Start 09/22/16 at 11:13; Stop 09/22/16 at 11:14; Status DC Aspirin (Children'S Aspirin) 324 mg 1X ONCE PO Last administered on 09/22/16t 11:15; Start 09/22/16 at 11:15; Stop 09/22/16 at 11:20; Status DC Morphine Sulfate 4 mg 4 mg PRN Q15MIN PRN IV/SQ PAIN GREATER THAN 3/10 Last administered on 09/22/16 13:16; Start 09/22/16 at 11:15; Stop 09/23/16 at 11:14 ; Status DC Sodium Chloride (Iv Sodium Chloride 0.9% 1000ml Bag) 1,000 ml @ 1,000 mls/hr Q1H IV Last administered on 09/22/16 11:33; Start 09/22/16 at 11:15; Stop at 12:14; Status DC Nitroglycerin (Nitrostat) 0.4 mg PRN Q5MIN PRN SL CHEST PAIN Last administered on 09/22/16 12:03; Start 09/22/16 at 11:15 Lorazepam (Ativan) 2 mg 1X ONCE IV Last administered on 09/22/16 11:47; Start 09/22/16 at 11:45; Stop 09/22/16 at 11:46; Status DC Ondansetron HCl (Zofran) 8 mg 1X ONCE IV Last administered on 09/22/16 11:47 ; Start 09/22/16 at 11:45; Stop 09/22/16 at 11:46; Status DC Nitroglycerin 1 inch 1 inch 1X ONCE TP Last administered on 09/22/16 12:08; Start 09/22/16 at 12:15; Stop 09/22/16 at 12:16; Status DC Sodium Chloride 1,000 ml @ 0 mls/hr Q0M IV ; Start 09/22/16 at 13:01; Stop at 13:00; Status DC Magnesium Sulfate/ Dextrose (Magnesium Sulfate PREMIX 2GM) 50 ml @ 25 mls/hr 1X ONCE IV Last administered on 09/22/16 13:17; Start 09/22/16 at 14:00; Stop 09/22/16 at 15:59; Status DC Atorvastatin Calcium (Lipitor) 80 mg QHS PO Last administered on 09/22/16 21: 09; Start 09/22/16 at 21:00 Fentanyl Citrate (Fentanyl 2ml Vial) 100 mcg STK-MED ONCE .ROUTE ; Start at 13:06; Stop 09/22/16 at 13:07; Status DC Midazolam HCl (Versed) 2 mg STK-MED ONCE .ROUTE ; Start 09/22/16 at 13:06; Stop 09/22/16 at 13:07; Status DC Nitroglycerin (Nitroglycerin) 200 mcg STK-MED ONCE .ROUTE ; Start 09/22/16 at 13 :08; Stop 09/22/16 at 13:09; Status DC Verapamil HCl (Verapamil) 5 mg STK-MED ONCE .ROUTE ; Start 09/22/16 at 13:08; Stop 09/22/16 at 13:09; Status DC Heparin Sodium (Porcine) (Heparin Sodium) 10,000 unit STK-MED ONCE .ROUTE ; Start 09/22/16 at 13:08; Stop 09/22/16 at 13:09; Status DC Ondansetron HCl (Zofran) 4 mg PRN Q8HRS PRN IV NAUSEA/VOMITING; Start 09/22/16 at 13:30; Stop 09/23/16 at 13:29; Status DC Fentanyl Citrate (Fentanyl 2ml Vial) 50 mcg PRN Q2HR PRN IV PAIN; Start at 13:30; Stop 09/23/16 at 13:29; Status DC Iohexol 100 ml 100 ml STK-MED ONCE .ROUTE ; Start 09/22/16 at 13:30; Stop at 13:31; Status DC Heparin Sodium/ Sodium Chloride 1,000 ml @ As Directed STK-MED ONCE .ROUTE ; Start 09/22/16 at 13:30; Stop 09/22/16 at 13:31; Status DC Lidocaine HCl 20 ml 20 ml STK-MED ONCE .ROUTE ; Start 09/22/16 at 13:30; Stop at 13:31; Status DC Heparin Sodium/ Sodium Chloride 500 ml @ As Directed STK-MED ONCE .ROUTE ; Start 09/22/16 at 13:32; Stop 09/22/16 at 13:33; Status DC Tirofiban/Sodium Chloride (Aggrastat 12.5 Mg/250 ml Premix) 250 ml @ As Directed STK-MED ONCE IV ; Start 09/22/16 at 13:51; Stop 09/22/16 at 13:52; Status DC Nitroglycerin (Nitroglycerin) 200 mcg 1X ONCE IART Last administered on t 15:13; Start 09/22/16 at 14:15; Stop 09/22/16 at 14:16; Status DC Verapamil HCl (Verapamil) 2.5 mg 1X ONCE IART Last administered on 09/22/16 15:15; Start 09/22/16 at 14:15; Stop 09/22/16 at 14:16; Status DC Heparin Sodium (Porcine) (Heparin Sodium) 2,500 unit 1X ONCE IART Last administered on 09/22/16 15:18; Start 09/22/16 at 14:15; Stop 09/22/16 at 14:16 ; Status DC Heparin Sodium/ Sodium Chloride 1,000 unit 1X ONCE IART Last administered on 15:16; Start 09/22/16 at 14:15; Stop 09/22/16 at 14:16; Status DC Heparin Sodium/ Sodium Chloride 1,000 unit 1X ONCE IART Last administered on 15:16; Start 09/22/16 at 14:15; Stop 09/22/16 at 14:16; Status DC Midazolam HCl (Versed) 2 mg 1X ONCE IV Last administered on 09/22/16 15:14; Start 09/22/16 at 14:15; Stop 09/22/16 at 14:16; Status DC Iohexol (Omnipaque 300 Mg/ml) 100 ml 1X ONCE IART Last administered on 15:15; Start 09/22/16 at 14:15; Stop 09/22/16 at 14:16; Status DC Heparin Sodium (Porcine) (Heparin Sodium) 4,000 unit 1X ONCE IV Last administered on 09/22/16 15:19; Start 09/22/16 at 14:15; Stop 09/22/16 at 14:16 ; Status DC Lidocaine HCl 20 ml 20 ml 1X ONCE IJ Last administered on 09/22/16 15:15; Start 09/22/16 at 14:15; Stop 09/22/16 at 14:16; Status DC Tirofiban/Sodium Chloride (Aggrastat 12.5 Mg/250 ml Premix) 250 ml @ 0 mls/hr CONT PRN IV PER PROTOCOL Last administered on 09/22/16 15:17; Start 09/22/16 at 13:57; Stop 09/23/16 at 07:56; Status DC Info (Do NOT chart on this entry -- for MONITORING) 1 each PRN DAILY PRN MC SEE COMMENTS; Start 09/22/16 at 14:30; Stop 09/24/16 at 14:29 Fentanyl Citrate (Fentanyl 2ml Vial) 50 mcg 1X ONCE IM ; Start 09/22/16 at 14: 30; Stop 09/22/16 at 14:31; Status Cancel Iohexol (Omnipaque 300 Mg/ml) 100 ml STK-MED ONCE .ROUTE ; Start 09/22/16 at 14: 34; Stop 09/22/16 at 14:35; Status DC Nitroglycerin 200 mcg 200 mcg 1X ONCE IART Last administered on 09/22/16 15: 13; Start 09/22/16 at 14:38; Stop 09/22/16 at 14:43; Status DC Nitroglycerin/ Dextrose 250 ml @ As Directed STK-MED ONCE IV ; Start 09/22/16 at 14:46; Stop 09/22/16 at 14:47; Status DC Nitroglycerin/ Dextrose 250 ml @ 0 mls/hr CONT PRN IV SEE I/O RECORD Last administered on 09/22/16 15:20; Start 09/22/16 at 15:00 Heparin Sodium/ Dextrose 500 ml @ 18 mls/hr CONT PRN IV SEE I/O RECORD Last administered on 09/22/16 15:51; Start 09/22/16 at 15:15 Heparin Sodium (Porcine) 1850 unit 1,850 unit PRN Q6HRS PRN IV FOR UFH LEVEL LESS THAN 0.2; Start 09/22/16 at 15:15 Heparin Sodium/ Dextrose 500 ml @ As Directed STK-MED ONCE IV ; Start 09/22/16 at 15:22; Stop 09/22/16 at 15:23; Status DC Fentanyl Citrate (Fentanyl 2ml Vial) 50 mcg 1X ONCE IV Last administered on 14:30; Start 09/22/16 at 14:30; Stop 09/22/16 at 16:14; Status DC Aspirin (Jocelyn Aspirin) 325 mg DAILYWBKFT PO Last administered on 09/23/16 08: 25; Start 09/23/16 at 08:00 Isosorbide Mononitrate (Imdur) 30 mg DAILY PO Last administered on 09/23/16 08 :25; Start 09/23/16 at 09:00 Metoprolol Tartrate (Lopressor) 12.5 mg BID PO ; Start 09/23/16 at 15:00 Ondansetron HCl (Zofran) 4 mg PRN Q6HRS PRN IV NAUSEA/VOMITING; Start 09/26/16 at 07:00; Stop 09/27/16 at 06:59 Fentanyl Citrate (Fentanyl 2ml Vial) 25 mcg PRN Q5MIN PRN IV MILD PAIN; Start 09/26/16 at 07:00; Stop 09/27/16 at 06:59 Fentanyl Citrate (Fentanyl 2ml Vial) 50 mcg PRN Q5MIN PRN IV MODERATE PAIN; Start 09/26/16 at 07:00; Stop 09/27/16 at 06:59 Morphine Sulfate 1 mg 1 mg PRN Q10MIN PRN IV SEVERE PAIN; Start 09/26/16 at 07: 00; Stop 09/27/16 at 06:59 Lactated Ringer's (Iv Lactated Ringers) 1,000 ml @ 0 mls/hr Q0M IV ; Start 09/26 at 07:00; Stop 09/26/16 at 18:59 Lidocaine HCl 2 ml PRN 1X PRN ID PRIOR TO IV START; Start 09/26/16 at 07:00; Stop 09/27/16 at 06:59 Hydromorphone HCl (Dilaudid) 0.5 mg PRN Q10MIN PRN IV SEV PAIN, Second choice; Start 09/26/16 at 07:00; Stop 09/27/16 at 06:59 Prochlorperazine Edisylate (Compazine) 5 mg PACU PRN PRN IV NAUSEA, MRX1; Start 09/26/16 at 07:00; Stop 09/27/16 at 06:59 Info (Anti-Coagulation Monitoring By Pharmacy) 1 each PRN DAILY PRN MC SEE COMMENTS; Start 09/23/16 at 15:15 Active Scripts Active NITROGLYCERIN SubLingual (Nitroglycerin) 0.4 Mg Tab.subl 1 Tab SL UD Isosorbide Mononitrate Er (Isosorbide Mononitrate) 30 Mg Tab.er.24h 1 Tab PO DAILY Reported Tamsulosin Hcl 0.4 Mg Cap.er.24h 0.4 Mg PO DAILY Lisinopril 10 Mg Tablet 1 Tab PO DAILY Atenolol 25 Mg Tablet 1 Tab PO DAILY Lo-Dose Aspirin EC (Aspirin) 81 Mg Tablet.dr 81 Mg PO Atorvastatin Calcium 80 Mg Tablet 40 Mg PO HS Allergies Allergies: Coded Allergies: No Known Drug Allergies (Unverified , 05/29/14) ROS General: No: Appetite, Chills, Fatigue, Malaise, Night Sweats PSYCHOLOGICAL ROS: No: Anxiety, Behavioral Disorder, Concentration difficultie , Decreased libido, Depression, Disorientation, Hallucinations, Hostility, Irritablity, Memory difficulties, Mood Swings, Obsessive thoughts, Physical abuse, Sexual abuse, Sleep disturbances, Suicidal ideation Eyes: No Blurry vision, No Decreased vision, No Double vision, No Dry eyes, No Excessive tearing, No Eye Pain, No Itchy Eyes, No Loss of vision, No Photophobia , No Scotomata, No Uses contacts, No Uses glasses HEENT: No: Epistaxis, Heacaches, Hearing change, Nasal congestion, Nasal discharge, Oral lesions, Sinus pain, Sneezing, Snoring, Sore Throat, Tinnitus, Vertigo, Visual Changes, Vocal changes ALLERGY AND IMMUNOLOGY: No: Hives, Insect Bite Sensitivity, Itchy/Watery Eyes, Nasal Congestion, Post Nasal Drip, Seasonal Allergies Hematological and Lymphatic: No: Bleeding Problems, Blood Clots, Blood Transfusions, Brusing, Night Sweats, Pallor, Swollen Lymph Nodes ENDOCRINE: No: Breast Changes, Galactorrhea, Hair Pattern Changes, Hot Flashes , Malaise/lethargy, Mood Swings, Palpitations, Polydipsia/polyuria, Skin Changes , Temperature Intolerance, Unexpected Weight Changes Breast: No New/Changing Breast Lumps, No Nipple changes, No Nipple discharge Respiratory: No: Cough, Hemoptysis, Orthopnea, Pleuritic Pain, SOB with excertion, Shortness of breath, Sputum Changes, Stridor, Tachypnea, Wheezing Cardiovascular: yes Chest Pain, No Edema, No Lt Headedness, No Orthopnea, No Palpitations, No Paroxysmal Noc. Dyspnea Gastrointestinal: No Abdominal Pain, No Constipation, No Diarrhea, No Hematochezia, No Melena, No Nausea, No Vomiting Genitourinary: No Discharge, No Dysuria, No Flank Pain, No Frequency, No Hematuria, No Incontinence, No Pain, No Retention, No Urgency Musculoskeletal: No Gait Disturbance, No Joint Pain, No Joint Stiffness, No Joint Swelling, No Muscle Pain, No Muscular Weakness, No Pain In:, No Swelling In: Neurological: No Behavorial Changes, No Bowel/Bladder ControlChng, No Confusion , No Dizziness, No Gait Disturbance, No Headaches, No Impaired Coord/balance, No Memory Loss, No Numbness/Tingling, No Seizures, No Speech Problems, No Tremors, No Visual Changes, No Weakness Skin: No Acne, No Dry Skin, No Eczema, No Hair Changes, No Lumps, No Mole Changes, No Mottling, No Nail Changes, No Pruritus, No Rash, No Skin Lesion Changes Physical Exam General: Alert, Oriented X3, No acute distress HEENT: Atraumatic, PERRLA Lungs: Clear to auscultation, Normal air movement Heart: Regular rate, Normal S1, Normal S2 Abdomen: Soft, No tenderness Extremities: No edema Skin: No significant lesion Neuro: Normal gait, Normal speech, Strength at 5/5 X4 ext, Normal tone, Sensation intact, Cranial nerves 3-12 NL Psych/Mental Status: Mental status NL MUSCULOSKELETAL: No deformity Vitals VITALS Vital Signs Date Time Temp Pulse Resp B/P Pulse Ox O2 Delivery O2 Flow Rate FiO2 09/23/16 11:44 98.3 84 16 112/70 94 Room Air 98.3 Labs Labs Laboratory Tests Test 09/22/16 11:15 09/22/16 11:38 09/22/16 11:41 09/22/16 14:39 White Blood Count 11.1x10^3/uL (4.0-11.0) Red Blood Count 3.94x10^6/uL (4.30-5.70) Hemoglobin 13.4g/dL (13.0-17.5) Hematocrit 40.3% (39.0-53.0) Mean Corpuscular Volume 102fL (79-100) Mean Corpuscular Hemoglobin 34pg (25-35) Mean Corpuscular Hemoglobin Concent 33g/dL (31-37) Red Cell Distribution Width 14.1% (11.5-14.5) Platelet Count 207x10^3/uL (140-400) Neutrophils (%) (Auto) 70% (31-73) Lymphocytes (%) (Auto) 18% (24-48) Monocytes (%) (Auto) 9% (0-9) Eosinophils (%) (Auto) 3% (0-3) Basophils (%) (Auto) 1% (0-3) Neutrophils # (Auto) 7.8x10^3uL (1.8-7.7) Lymphocytes # (Auto) 2.0x10^3/uL (1.0-4.8) Monocytes # (Auto) 1.0x10^3/uL (0.0-1.1) Eosinophils # (Auto) 0.3x10^3/uL (0.0-0.7) Basophils # (Auto) 0.1x10^3/uL (0.0-0.2) Prothrombin Time 12.4SEC (11.7-14.0) Prothromb Time International Ratio 1.0 (0.8-1.1) Sodium Level 136mmol/L (136-145) Potassium Level 4.9mmol/L (3.5-5.1) Chloride Level 101mmol/L (98-107) Carbon Dioxide Level 25mmol/L (21-32) Anion Gap 10 (6-14) 18mmol/L (6-14) Blood Urea Nitrogen 24mg/dL (8-26) Creatinine 1.0mg/dL (0.7-1.3) Estimated GFR (Cockcroft-Gault) 78.8 Glucose Level 106mg/dL (70-99) 100mg/dL (70-99) Calcium Level 9.2mg/dL (8.5-10.1) Magnesium Level 1.3mg/dL (1.8-2.4) Troponin I Quantitative 0.241ng/mL (0.000-0.055) FH-Htb-S-Type Natriuretic Peptide 64pg/mL (0-124) Triglycerides Level 57mg/dL (0-150) Cholesterol Level 206mg/dL (0-200) LDL Cholesterol, Calculated 128mg/dL (0-100) VLDL Cholesterol, Calculated 11mg/dL (0-40) Non-HDL Cholesterol Calculated 139mg/dL (0-129) HDL Cholesterol 67mg/dL (40-60) Cholesterol/HDL Ratio 3.1 Lipase 147U/L (73-393) Bedside Troponin I 0.11ng/ml (<0.08) Bedside Hemoglobin 14.3g/dL (14-18) Bedside Hematocrit 42% (37-52) Bedside Sodium 137mmol/L (135-145) Bedside Potassium 4.8mmol/L (3.5-5.0) Bedside Chloride 102mmol/L (98-110) Bedside Total CO2 23mmol/L (23-32) Bedside Blood Urea Nitrogen 24mg/dL (8-26) Bedside Creatinine 0.9mg/dL (0.5-1.4) Bedside Ionized Calcium (Carla) 1.16mmol/L (1.13-1.32) Activated Clotting Time 268sec (92-181) Test 09/22/16 21:00 09/23/16 03:30 09/23/16 10:10 Heparin Anti-Xa Act, Unfractionated 0.36IU/mL (0.30-0.70) 0.24IU/mL (0.30-0.70) 0.25IU/mL (0.30-0.70) Troponin I Quantitative 0.255ng/mL (0.000-0.055) 0.296ng/mL (0.000-0.055) White Blood Count 7.6x10^3/uL (4.0-11.0) Red Blood Count 3.30x10^6/uL (4.30-5.70) Hemoglobin 11.2g/dL (13.0-17.5) Hematocrit 33.5% (39.0-53.0) Mean Corpuscular Volume 101fL (79-100) Mean Corpuscular Hemoglobin 34pg (25-35) Mean Corpuscular Hemoglobin Concent 34g/dL (31-37) Red Cell Distribution Width 13.7% (11.5-14.5) Platelet Count 170x10^3/uL (140-400) Laboratory Tests Test 09/22/16 21:00 09/23/16 03:30 09/23/16 10:10 Heparin Anti-Xa Act, Unfractionated 0.36IU/mL (0.30-0.70) 0.24IU/mL (0.30-0.70) 0.25IU/mL (0.30-0.70) Troponin I Quantitative 0.255ng/mL (0.000-0.055) 0.296ng/mL (0.000-0.055) White Blood Count 7.6x10^3/uL (4.0-11.0) Red Blood Count 3.30x10^6/uL (4.30-5.70) Hemoglobin 11.2g/dL (13.0-17.5) Hematocrit 33.5% (39.0-53.0) Mean Corpuscular Volume 101fL (79-100) Mean Corpuscular Hemoglobin 34pg (25-35) Mean Corpuscular Hemoglobin Concent 34g/dL (31-37) Red Cell Distribution Width 13.7% (11.5-14.5) Platelet Count 170x10^3/uL (140-400) Images Images LEFT VENTRICLE The left ventricle is normal size. There is normal left ventricular wall thickness. The left ventricular systolic function is normal and the ejection fraction is within normal range. The Ejection Fraction is 60-65%. There is normal LV segmental wall motion. The left ventricular diastolic function and filling is normal for age. RIGHT VENTRICLE The right ventricle is normal size. There is normal right ventricular wall thickness. The right ventricular systolic function is normal. ATRIA The left atrium size is normal. The right atrium size is normal. The interatrial septum is intact with no evidence for an atrial septal defect or patent foramen ovale as noted on 2-D or Doppler imaging. AORTIC VALVE The aortic valve is normal in structure and function. Doppler and Color Flow revealed no significant aortic regurgitation. There is no significant aortic valvular stenosis. MITRAL VALVE There is no evidence of mitral valve prolapse. There is no mitral valve stenosis. Doppler and Color Flow revealed mild mitral regurgitation. TRICUSPID VALVE The tricuspid valve is normal in structure and function. Doppler and Color Flow revealed no tricuspid valve regurgitation noted. There is no pulmonary hypertension. There is no tricuspid valve stenosis. PULMONIC VALVE Doppler and Color Flow revealed no pulmonic valvular regurgitation. There is no pulmonic valvular stenosis. GREAT VESSELS The aortic root is normal in size. The ascending aorta is normal in size. The IVC was obscured, unable to assess. PERICARDIAL EFFUSION There is no evidence of significant pericardial effusion. CORONARY ANGIOGRAPHY: LM is a large caliber vessel with normal angiographic appearance. LAD is a large caliber vessel with a proximal 80% stenosis at the origin of the 1st diagonal. D1 is a moderate caliber vessel with a patent ostial/proximal stent, mid 50% stenosis followed by a patent stent in the mid to distal portion. LCx is a small caliber non-dominant vessel with normal angiographic appearance. OM1 is a moderate caliber vessel with a widely patent proximal stent. RCA is a large caliber dominant vessel with normal angiographic appearance. RPDA and RPL are moderate to large caliber vessels with normal angiographic appearance. Assessment/Plan Assessment/Plan 51-year-old male, with a history of PCI to the first diagonal and the left circumflex in 2014, presented with a non-STEMI. He now has a 80% proximal LAD stenosis and subtotal occlusion of the diagonal stent. Attempted PCI was unsuccessful. He has preserved LV function. I think he is an appropriate candidate for surgical coronary revascularization. I quoted a mortality risk of 1-2%, 1% risk of stroke, 1% risk of renal failure requiring dialysis, 5% risk of wound infection, 5% risk of pneumonia, 1% risk of the VDRF, 5% risk of perioperative [place], a 5-10% risk of re-sternotomy for hemorrhage, 20-30% risk of arrhythmias. The patient accepts these risks and agrees to proceed. Plan for CABG 2 (SOUTH to LAD, SVG to D1, on Monday. Will obtain: Noncontrast CT of the chest Carotid duplex Bilateral lower extremity vein mapping Crossmatch to units PRBCs Coags Informed consent EDWIN FERRERA MD Sep 23, 2016 16:16
[2016-09-23] MEDS: METOPROLOL TART IMMED RELEASE 25 MG TABLET. PO SCH ×2 (16:25→23:11)
[2016-09-23] MEDS: HEPARIN 25,000UTS/500ML PREMIX 500 ML IV PRN (16:26)
[2016-09-23 18:35] LABS: ALBUMIN 3.2 g/dL (3.4-5.0); DIRECT BILIRUBIN 0.2 mg/dL (0.0-0.2); TOTAL BILIRUBIN 0.4 mg/dL (0.2-1.0); TOTAL PROTEIN 6.4 g/dL (6.4-8.2)
--- NOTE | 2016-09-23 23:00 | PDOC ---
PROGRESS NOTES Chief Complaint Chief Complaint cc: chest pain, sob Acute CA CAD with prior PCI/stenting diabetes, alcohol abuse tobacco abuse. Severe ETOH withdraw History of Present Illness History of Present Illness patient seen and evaluted. no chest pain. discuss w/ nurse, He is still withdrawing Labss noted Notes reviewed Vitals Vitals Vital Signs Date Time Temp Pulse Resp B/P Pulse Ox O2 Delivery O2 Flow Rate FiO2 09/23/16 20:00 98.5 67 12 112/69 98 Room Air 98.5 Physical Exam General: Alert, Other (Shaky) Heart: Regular rate, Normal S1, Normal S2 Lungs: Clear, Other (negative accessory muscle use ) Abdomen: Soft, No tenderness Extremities: No clubbing, No cyanosis, No edema Skin: Other (Spider angiomas on chest) Labs LABS Laboratory Tests Test 09/23/16 03:30 09/23/16 10:10 09/23/16 17:40 White Blood Count 7.6x10^3/uL (4.0-11.0) Red Blood Count 3.30x10^6/uL (4.30-5.70) Hemoglobin 11.2g/dL (13.0-17.5) Hematocrit 33.5% (39.0-53.0) Mean Corpuscular Volume 101fL (79-100) Mean Corpuscular Hemoglobin 34pg (25-35) Mean Corpuscular Hemoglobin Concent 34g/dL (31-37) Red Cell Distribution Width 13.7% (11.5-14.5) Platelet Count 170x10^3/uL (140-400) Heparin Anti-Xa Act, Unfractionated 0.24IU/mL (0.30-0.70) 0.25IU/mL (0.30-0.70) 0.33IU/mL (0.30-0.70) Troponin I Quantitative 0.296ng/mL (0.000-0.055) 0.260ng/mL (0.000-0.055) Activated Partial Thromboplast Time 67SEC (24-38) Total Bilirubin 0.4mg/dL (0.2-1.0) Direct Bilirubin 0.2mg/dL (0.0-0.2) Aspartate Amino Transf (AST/SGOT) 29U/L (15-37) Alanine Aminotransferase (ALT/SGPT) 45U/L (16-63) Alkaline Phosphatase 45U/L (46-116) Total Protein 6.4g/dL (6.4-8.2) Albumin 3.2g/dL (3.4-5.0) Review of Systems Review of Systems co shaking Assessment and Plan Assessmemt and Plan Problems Medical Problems: (1) NSTEMI (non-ST elevated myocardial infarction) Status: Acute cc: chest pain, sob CAD with prior PCI/stenting diabetes, alcohol abuse tobacco abuse. Severe ETOH withdraw Plan Possible CABG Monday? ETOH withdraw protocol Follow labs ICU monitoring Serial enzymes Serial EKGs Anti platlette tx Heparin Prognosis guarded Total time 31 minutes Problems: Comment Review of Relevant I have reviewed the following items mike (where applicable) has been applied. Labs Laboratory Tests Test 09/22/16 11:15 09/22/16 11:38 09/22/16 11:41 09/22/16 14:39 White Blood Count 11.1x10^3/uL (4.0-11.0) Red Blood Count 3.94x10^6/uL (4.30-5.70) Hemoglobin 13.4g/dL (13.0-17.5) Hematocrit 40.3% (39.0-53.0) Mean Corpuscular Volume 102fL (79-100) Mean Corpuscular Hemoglobin 34pg (25-35) Mean Corpuscular Hemoglobin Concent 33g/dL (31-37) Red Cell Distribution Width 14.1% (11.5-14.5) Platelet Count 207x10^3/uL (140-400) Neutrophils (%) (Auto) 70% (31-73) Lymphocytes (%) (Auto) 18% (24-48) Monocytes (%) (Auto) 9% (0-9) Eosinophils (%) (Auto) 3% (0-3) Basophils (%) (Auto) 1% (0-3) Neutrophils # (Auto) 7.8x10^3uL (1.8-7.7) Lymphocytes # (Auto) 2.0x10^3/uL (1.0-4.8) Monocytes # (Auto) 1.0x10^3/uL (0.0-1.1) Eosinophils # (Auto) 0.3x10^3/uL (0.0-0.7) Basophils # (Auto) 0.1x10^3/uL (0.0-0.2) Prothrombin Time 12.4SEC (11.7-14.0) Prothromb Time International Ratio 1.0 (0.8-1.1) Sodium Level 136mmol/L (136-145) Potassium Level 4.9mmol/L (3.5-5.1) Chloride Level 101mmol/L (98-107) Carbon Dioxide Level 25mmol/L (21-32) Anion Gap 10 (6-14) 18mmol/L (6-14) Blood Urea Nitrogen 24mg/dL (8-26) Creatinine 1.0mg/dL (0.7-1.3) Estimated GFR (Cockcroft-Gault) 78.8 Glucose Level 106mg/dL (70-99) 100mg/dL (70-99) Calcium Level 9.2mg/dL (8.5-10.1) Magnesium Level 1.3mg/dL (1.8-2.4) Troponin I Quantitative 0.241ng/mL (0.000-0.055) EB-Tyb-O-Type Natriuretic Peptide 64pg/mL (0-124) Triglycerides Level 57mg/dL (0-150) Cholesterol Level 206mg/dL (0-200) LDL Cholesterol, Calculated 128mg/dL (0-100) VLDL Cholesterol, Calculated 11mg/dL (0-40) Non-HDL Cholesterol Calculated 139mg/dL (0-129) HDL Cholesterol 67mg/dL (40-60) Cholesterol/HDL Ratio 3.1 Lipase 147U/L (73-393) Bedside Troponin I 0.11ng/ml (<0.08) Bedside Hemoglobin 14.3g/dL (14-18) Bedside Hematocrit 42% (37-52) Bedside Sodium 137mmol/L (135-145) Bedside Potassium 4.8mmol/L (3.5-5.0) Bedside Chloride 102mmol/L (98-110) Bedside Total CO2 23mmol/L (23-32) Bedside Blood Urea Nitrogen 24mg/dL (8-26) Bedside Creatinine 0.9mg/dL (0.5-1.4) Bedside Ionized Calcium (Carla) 1.16mmol/L (1.13-1.32) Activated Clotting Time 268sec (92-181) Test 09/22/16 16:50 09/22/16 21:00 09/23/16 03:30 09/23/16 10:10 Nasal Screen MRSA (PCR) Negative (Negative) Heparin Anti-Xa Act, Unfractionated 0.36IU/mL (0.30-0.70) 0.24IU/mL (0.30-0.70) 0.25IU/mL (0.30-0.70) Troponin I Quantitative 0.255ng/mL (0.000-0.055) 0.296ng/mL (0.000-0.055) White Blood Count 7.6x10^3/uL (4.0-11.0) Red Blood Count 3.30x10^6/uL (4.30-5.70) Hemoglobin 11.2g/dL (13.0-17.5) Hematocrit 33.5% (39.0-53.0) Mean Corpuscular Volume 101fL (79-100) Mean Corpuscular Hemoglobin 34pg (25-35) Mean Corpuscular Hemoglobin Concent 34g/dL (31-37) Red Cell Distribution Width 13.7% (11.5-14.5) Platelet Count 170x10^3/uL (140-400) Test 09/23/16 17:40 Activated Partial Thromboplast Time 67SEC (24-38) Heparin Anti-Xa Act, Unfractionated 0.33IU/mL (0.30-0.70) Total Bilirubin 0.4mg/dL (0.2-1.0) Direct Bilirubin 0.2mg/dL (0.0-0.2) Aspartate Amino Transf (AST/SGOT) 29U/L (15-37) Alanine Aminotransferase (ALT/SGPT) 45U/L (16-63) Alkaline Phosphatase 45U/L (46-116) Troponin I Quantitative 0.260ng/mL (0.000-0.055) Total Protein 6.4g/dL (6.4-8.2) Albumin 3.2g/dL (3.4-5.0) Laboratory Tests Test 09/23/16 03:30 09/23/16 10:10 09/23/16 17:40 White Blood Count 7.6x10^3/uL (4.0-11.0) Red Blood Count 3.30x10^6/uL (4.30-5.70) Hemoglobin 11.2g/dL (13.0-17.5) Hematocrit 33.5% (39.0-53.0) Mean Corpuscular Volume 101fL (79-100) Mean Corpuscular Hemoglobin 34pg (25-35) Mean Corpuscular Hemoglobin Concent 34g/dL (31-37) Red Cell Distribution Width 13.7% (11.5-14.5) Platelet Count 170x10^3/uL (140-400) Heparin Anti-Xa Act, Unfractionated 0.24IU/mL (0.30-0.70) 0.25IU/mL (0.30-0.70) 0.33IU/mL (0.30-0.70) Troponin I Quantitative 0.296ng/mL (0.000-0.055) 0.260ng/mL (0.000-0.055) Activated Partial Thromboplast Time 67SEC (24-38) Total Bilirubin 0.4mg/dL (0.2-1.0) Direct Bilirubin 0.2mg/dL (0.0-0.2) Aspartate Amino Transf (AST/SGOT) 29U/L (15-37) Alanine Aminotransferase (ALT/SGPT) 45U/L (16-63) Alkaline Phosphatase 45U/L (46-116) Total Protein 6.4g/dL (6.4-8.2) Albumin 3.2g/dL (3.4-5.0) Medications Current Medications Nitroglycerin (Nitrostat) 0.4 mg STK-MED ONCE SL ; Start 09/22/16 at 11:13; Stop 09/22/16 at 11:14; Status DC Aspirin (Children'S Aspirin) 324 mg 1X ONCE PO Last administered on 09/22/16 11:15; Start 09/22/16 at 11:15; Stop 09/22/16 at 11:20; Status DC Morphine Sulfate 4 mg 4 mg PRN Q15MIN PRN IV/SQ PAIN GREATER THAN 3/10 Last administered on 09/22/16 13:16; Start 09/22/16 at 11:15; Stop 09/23/16 at 11:14 ; Status DC Sodium Chloride (Iv Sodium Chloride 0.9% 1000ml Bag) 1,000 ml @ 1,000 mls/hr Q1H IV Last administered on 09/22/16 11:33; Start 09/22/16 at 11:15; Stop at 12:14; Status DC Nitroglycerin (Nitrostat) 0.4 mg PRN Q5MIN PRN SL CHEST PAIN Last administered on 09/22/16 12:03; Start 09/22/16 at 11:15 Lorazepam (Ativan) 2 mg 1X ONCE IV Last administered on 09/22/16 11:47; Start 09/22/16 at 11:45; Stop 09/22/16 at 11:46; Status DC Ondansetron HCl (Zofran) 8 mg 1X ONCE IV Last administered on 09/22/16 11:47 ; Start 09/22/16 at 11:45; Stop 09/22/16 at 11:46; Status DC Nitroglycerin 1 inch 1 inch 1X ONCE TP Last administered on 09/22/16 12:08; Start 09/22/16 at 12:15; Stop 09/22/16 at 12:16; Status DC Sodium Chloride 1,000 ml @ 0 mls/hr Q0M IV ; Start 09/22/16 at 13:01; Stop at 13:00; Status DC Magnesium Sulfate/ Dextrose (Magnesium Sulfate PREMIX 2GM) 50 ml @ 25 mls/hr 1X ONCE IV Last administered on 09/22/16 13:17; Start 09/22/16 at 14:00; Stop 09/22/16 at 15:59; Status DC Atorvastatin Calcium (Lipitor) 80 mg QHS PO Last administered on 09/22/16 21: 09; Start 09/22/16 at 21:00 Fentanyl Citrate (Fentanyl 2ml Vial) 100 mcg STK-MED ONCE .ROUTE ; Start at 13:06; Stop 09/22/16 at 13:07; Status DC Midazolam HCl (Versed) 2 mg STK-MED ONCE .ROUTE ; Start 09/22/16 at 13:06; Stop 09/22/16 at 13:07; Status DC Nitroglycerin (Nitroglycerin) 200 mcg STK-MED ONCE .ROUTE ; Start 09/22/16 at 13 :08; Stop 09/22/16 at 13:09; Status DC Verapamil HCl (Verapamil) 5 mg STK-MED ONCE .ROUTE ; Start 09/22/16 at 13:08; Stop 09/22/16 at 13:09; Status DC Heparin Sodium (Porcine) (Heparin Sodium) 10,000 unit STK-MED ONCE .ROUTE ; Start 09/22/16 at 13:08; Stop 09/22/16 at 13:09; Status DC Ondansetron HCl (Zofran) 4 mg PRN Q8HRS PRN IV NAUSEA/VOMITING; Start 09/22/16 at 13:30; Stop 09/23/16 at 13:29; Status DC Fentanyl Citrate (Fentanyl 2ml Vial) 50 mcg PRN Q2HR PRN IV PAIN; Start at 13:30; Stop 09/23/16 at 13:29; Status DC Iohexol 100 ml 100 ml STK-MED ONCE .ROUTE ; Start 09/22/16 at 13:30; Stop at 13:31; Status DC Heparin Sodium/ Sodium Chloride 1,000 ml @ As Directed STK-MED ONCE .ROUTE ; Start 09/22/16 at 13:30; Stop 09/22/16 at 13:31; Status DC Lidocaine HCl 20 ml 20 ml STK-MED ONCE .ROUTE ; Start 09/22/16 at 13:30; Stop at 13:31; Status DC Heparin Sodium/ Sodium Chloride 500 ml @ As Directed STK-MED ONCE .ROUTE ; Start 09/22/16 at 13:32; Stop 09/22/16 at 13:33; Status DC Tirofiban/Sodium Chloride (Aggrastat 12.5 Mg/250 ml Premix) 250 ml @ As Directed STK-MED ONCE IV ; Start 09/22/16 at 13:51; Stop 09/22/16 at 13:52; Status DC Nitroglycerin (Nitroglycerin) 200 mcg 1X ONCE IART Last administered on t 15:13; Start 09/22/16 at 14:15; Stop 09/22/16 at 14:16; Status DC Verapamil HCl (Verapamil) 2.5 mg 1X ONCE IART Last administered on 09/22/16t 15:15; Start 09/22/16 at 14:15; Stop 09/22/16 at 14:16; Status DC Heparin Sodium (Porcine) (Heparin Sodium) 2,500 unit 1X ONCE IART Last administered on 09/22/16 15:18; Start 09/22/16 at 14:15; Stop 09/22/16 at 14:16 ; Status DC Heparin Sodium/ Sodium Chloride 1,000 unit 1X ONCE IART Last administered on 15:16; Start 09/22/16 at 14:15; Stop 09/22/16 at 14:16; Status DC Heparin Sodium/ Sodium Chloride 1,000 unit 1X ONCE IART Last administered on 15:16; Start 09/22/16 at 14:15; Stop 09/22/16 at 14:16; Status DC Midazolam HCl (Versed) 2 mg 1X ONCE IV Last administered on 09/22/16 15:14; Start 09/22/16 at 14:15; Stop 09/22/16 at 14:16; Status DC Iohexol (Omnipaque 300 Mg/ml) 100 ml 1X ONCE IART Last administered on 15:15; Start 09/22/16 at 14:15; Stop 09/22/16 at 14:16; Status DC Heparin Sodium (Porcine) (Heparin Sodium) 4,000 unit 1X ONCE IV Last administered on 09/22/16 15:19; Start 09/22/16 at 14:15; Stop 09/22/16 at 14:16 ; Status DC Lidocaine HCl 20 ml 20 ml 1X ONCE IJ Last administered on 09/22/16 15:15; Start 09/22/16 at 14:15; Stop 09/22/16 at 14:16; Status DC Tirofiban/Sodium Chloride (Aggrastat 12.5 Mg/250 ml Premix) 250 ml @ 0 mls/hr CONT PRN IV PER PROTOCOL Last administered on 09/22/16 15:17; Start 09/22/16 at 13:57; Stop 09/23/16 at 07:56; Status DC Info (Do NOT chart on this entry -- for MONITORING) 1 each PRN DAILY PRN MC SEE COMMENTS; Start 09/22/16 at 14:30; Stop 09/24/16 at 14:29 Fentanyl Citrate (Fentanyl 2ml Vial) 50 mcg 1X ONCE IM ; Start 09/22/16 at 14: 30; Stop 09/22/16 at 14:31; Status Cancel Iohexol (Omnipaque 300 Mg/ml) 100 ml STK-MED ONCE .ROUTE ; Start 09/22/16 at 14: 34; Stop 09/22/16 at 14:35; Status DC Nitroglycerin 200 mcg 200 mcg 1X ONCE IART Last administered on 09/22/16 15: 13; Start 09/22/16 at 14:38; Stop 09/22/16 at 14:43; Status DC Nitroglycerin/ Dextrose 250 ml @ As Directed STK-MED ONCE IV ; Start 09/22/16 at 14:46; Stop 09/22/16 at 14:47; Status DC Nitroglycerin/ Dextrose 250 ml @ 0 mls/hr CONT PRN IV SEE I/O RECORD Last administered on 09/22/16 15:20; Start 09/22/16 at 15:00 Heparin Sodium/ Dextrose 500 ml @ 18 mls/hr CONT PRN IV SEE I/O RECORD Last administered on 09/23/16 16:26; Start 09/22/16 at 15:15 Heparin Sodium (Porcine) 1850 unit 1,850 unit PRN Q6HRS PRN IV FOR UFH LEVEL LESS THAN 0.2; Start 09/22/16 at 15:15 Heparin Sodium/ Dextrose 500 ml @ As Directed STK-MED ONCE IV ; Start 09/22/16 at 15:22; Stop 09/22/16 at 15:23; Status DC Fentanyl Citrate (Fentanyl 2ml Vial) 50 mcg 1X ONCE IV Last administered on 14:30; Start 09/22/16 at 14:30; Stop 09/22/16 at 16:14; Status DC Aspirin (Jocelyn Aspirin) 325 mg DAILYWBKFT PO Last administered on 09/23/16 08: 25; Start 09/23/16 at 08:00 Isosorbide Mononitrate (Imdur) 30 mg DAILY PO Last administered on 09/23/16 08 :25; Start 09/23/16 at 09:00 Metoprolol Tartrate (Lopressor) 12.5 mg BID PO Last administered on 09/23/16 16:25; Start 09/23/16 at 15:00 Ondansetron HCl (Zofran) 4 mg PRN Q6HRS PRN IV NAUSEA/VOMITING; Start 09/26/16 at 07:00; Stop 09/27/16 at 06:59 Fentanyl Citrate (Fentanyl 2ml Vial) 25 mcg PRN Q5MIN PRN IV MILD PAIN; Start 09/26/16 at 07:00; Stop 09/27/16 at 06:59 Fentanyl Citrate (Fentanyl 2ml Vial) 50 mcg PRN Q5MIN PRN IV MODERATE PAIN; Start 09/26/16 at 07:00; Stop 09/27/16 at 06:59 Morphine Sulfate 1 mg 1 mg PRN Q10MIN PRN IV SEVERE PAIN; Start 09/26/16 at 07: 00; Stop 09/27/16 at 06:59 Lactated Ringer's (Iv Lactated Ringers) 1,000 ml @ 0 mls/hr Q0M IV ; Start 09/26 at 07:00; Stop 09/26/16 at 18:59 Lidocaine HCl 2 ml PRN 1X PRN ID PRIOR TO IV START; Start 09/26/16 at 07:00; Stop 09/27/16 at 06:59 Hydromorphone HCl (Dilaudid) 0.5 mg PRN Q10MIN PRN IV SEV PAIN, Second choice; Start 09/26/16 at 07:00; Stop 09/27/16 at 06:59 Prochlorperazine Edisylate (Compazine) 5 mg PACU PRN PRN IV NAUSEA, MRX1; Start 09/26/16 at 07:00; Stop 09/27/16 at 06:59 Info (Anti-Coagulation Monitoring By Pharmacy) 1 each PRN DAILY PRN MC SEE COMMENTS; Start 09/23/16 at 15:15 Active Scripts Active NITROGLYCERIN SubLingual (Nitroglycerin) 0.4 Mg Tab.subl 1 Tab SL UD Isosorbide Mononitrate Er (Isosorbide Mononitrate) 30 Mg Tab.er.24h 1 Tab PO DAILY Reported Tamsulosin Hcl 0.4 Mg Cap.er.24h 0.4 Mg PO DAILY Lisinopril 10 Mg Tablet 1 Tab PO DAILY Atenolol 25 Mg Tablet 1 Tab PO DAILY Lo-Dose Aspirin EC (Aspirin) 81 Mg Tablet.dr 81 Mg PO Atorvastatin Calcium 80 Mg Tablet 40 Mg PO HS Vitals/I & O Vital Sign - Last 24 Hours 09/22/16 09/23/16 09/23/16 09/23/16 23:00 00:00 00:00 01:00 Temp 98.5 98.5 Pulse 80 82 80 Resp 05 10 15 B/P 109/66 110/60 113/65 Pulse Ox 95 94 96 O2 Delivery Room Air Room Air Room Air Room Air 09/23/16 09/23/16 09/23/16 09/23/16 02:00 03:00 04:00 04:00 Temp 98.2 98.2 Pulse 88 84 66 Resp 20 B/P 118/68 101/63 106/61 Pulse Ox 97 99 93 O2 Delivery Room Air Room Air Room Air Room Air 09/23/16 09/23/16 09/23/16 09/23/16 05:00 06:00 07:00 08:00 Temp 98.0 98.0 Pulse 61 61 61 62 Resp 05 10 10 12 B/P 108/74 97/59 112/74 125/83 Pulse Ox 96 95 98 98 O2 Delivery Room Air Room Air Room Air Room Air 09/23/16 09/23/16 09/23/16 09/23/16 08:25 11:44 16:00 16:25 Temp 98.3 99.1 98.3 99.1 Pulse 82 84 58 75 Resp 19 B/P 125/83 112/70 141/88 141/88 Pulse Ox 94 98 O2 Delivery Room Air Room Air 09/23/16 20:00 Temp 98.5 98.5 Pulse 67 Resp 12 B/P 112/69 Pulse Ox 98 O2 Delivery Room Air Intake and Output 09/22/16 09/22/16 09/23/16 15:00 23:00 07:00 Intake Total 970 ml 1772 ml Output Total 1500 ml 1350 ml Balance -530 ml 422 ml HERNESTONIAL K III DO Sep 23, 2016 23:00
[2016-09-23] MEDS: ATORVASTATIN CALCIUM 40 MG TABLET. PO SCH (23:10)
[2016-09-24] VITALS: BP 104/65
[2016-09-24 04:00] VITALS: BP 104/60
[2016-09-24] MEDS: NITROGLYCERIN PREMIX 250 ML IV PRN (06:40)
[2016-09-24 07:03] LABS: BASO # 0.1 x10^3/uL (0.0-0.2); BASO % 1 % (0-3); EOS % 6 % (0-3); HEMATOCRIT 35.4 % (39.0-53.0); HEMOGLOBIN 11.8 g/dL (13.0-17.5); LYMPH % 32 % (24-48); MEAN CORPUSCULAR HEMOGLOBIN 34 pg (25-35); MEAN CORPUSCULAR HGB CONC 34 g/dL (31-37); MEAN CORPUSCULAR VOLUME 101 fL (79-100); MONO % 12 % (0-9); NEUT % 49 % (31-73); PLATELET COUNT 181 x10^3/uL (140-400); RED BLOOD COUNT 3.51 x10^6/uL (4.30-5.70); RED CELL DISTRIBUTION WIDTH 13.6 % (11.5-14.5); WHITE BLOOD COUNT 6.3 x10^3/uL (4.0-11.0)
[2016-09-24 07:40] LABS: CALCIUM 8.5 mg/dL (8.5-10.1); CREATININE 0.7 mg/dL (0.7-1.3); GFR 118.9; POTASSIUM 4.2 mmol/L (3.5-5.1)
[2016-09-24 08:00] VITALS: BP 100/61
[2016-09-24] MEDS: ASPIRIN 325 MG TABLET PO SCH (08:50)
[2016-09-24] MEDS: ISOSORBIDE MONONITRATE ER 30 MG TAB.ER.24H PO SCH (08:51)
[2016-09-24] MEDS: METOPROLOL TART IMMED RELEASE 25 MG TABLET. PO SCH ×2 (09:01→20:57)
[2016-09-24 12:00] VITALS: BP 126/80
[2016-09-24] MEDS: HEPARIN 25,000UTS/500ML PREMIX 500 ML IV PRN (12:20)
--- NOTE | 2016-09-24 13:39 | PDOC ---
CARDIOLOGY PROGRESS NOTE SUBJECTIVE: No chest pain or dyspnea. Resting in bed comfortably OBJECTIVE: Vital SIgns: Vital Signs Date Time Temp Pulse Resp B/P Pulse Ox O2 Delivery O2 Flow Rate FiO2 09/24/16 12:00 98.6 70 14 126/80 93 Room Air 98.6 I & O Intake and Output 09/24/16 07:00 Intake Total 2572.12 ml Output Total 5525 ml Balance -2952.88 ml Intake Oral 2280 ml IV Total 292.12 ml Output Urine Total 5525 ml Objective: Gen: a/o x 3. NAD CVS: RRR, no m/r/g PULM: Mild end exp wheezing ABD: Soft, NT/ND +BS EXT: No edema. Diminished but palp pulses NEURO: Non focal exam MSK no trauma. CURRENT MEDICATIONS: asa, atorvastatin, b-alicja and hep gtt and imdur/NTG gtt DIAGNOSTIC TESTING: Trop stable at 0.26. ASSESSMENT: 1. NSTEMI 2. Two vessel CAD 3. Tobacco/alcohol abuse. Problems: PLAN: 1. Continue current meds. 2. Await lower ext vein mapping, carotid dopplers Plan for CABG on monday per Dr. Camacho. Stop hep gtt per CT surgery. LEATHA MARCANO MD Sep 24, 2016 13:39
[2016-09-24 19:41] VITALS: BP 122/73
[2016-09-24] MEDS: ATORVASTATIN CALCIUM 40 MG TABLET. PO SCH (20:57)
--- NOTE | 2016-09-24 21:35 | PDOC ---
PROGRESS NOTES Chief Complaint Chief Complaint cc: chest pain, sob Acute [place] CAD with prior PCI/stenting diabetes, alcohol abuse tobacco abuse. Severe ETOH withdraw History of Present Illness History of Present Illness patient seen and evaluted. no chest pain. discuss w/ nurse, He is still withdrawing Labss noted Notes reviewed Plan is Possible CABG next week Vitals Vitals Vital Signs Date Time Temp Pulse Resp B/P Pulse Ox O2 Delivery O2 Flow Rate FiO2 09/24/16 20:57 59 122/73 09/24/16 19:53 Room Air 09/24/16 19:41 97.7 18 97 97.7 Physical Exam General: Alert, Other (Shaky) Heart: Regular rate, Normal S1, Normal S2 Lungs: Clear, Other (negative accessory muscle use ) Abdomen: Soft, No tenderness Extremities: No clubbing, No cyanosis, No edema Skin: Other (Spider angiomas on chest) Labs LABS Laboratory Tests Test 09/24/16 01:00 09/24/16 06:20 Heparin Anti-Xa Act, Unfractionated 0.34IU/mL (0.30-0.70) 0.39IU/mL (0.30-0.70) White Blood Count 6.3x10^3/uL (4.0-11.0) Red Blood Count 3.51x10^6/uL (4.30-5.70) Hemoglobin 11.8g/dL (13.0-17.5) Hematocrit 35.4% (39.0-53.0) Mean Corpuscular Volume 101fL (79-100) Mean Corpuscular Hemoglobin 34pg (25-35) Mean Corpuscular Hemoglobin Concent 34g/dL (31-37) Red Cell Distribution Width 13.6% (11.5-14.5) Platelet Count 181x10^3/uL (140-400) Neutrophils (%) (Auto) 49% (31-73) Lymphocytes (%) (Auto) 32% (24-48) Monocytes (%) (Auto) 12% (0-9) Eosinophils (%) (Auto) 6% (0-3) Basophils (%) (Auto) 1% (0-3) Neutrophils # (Auto) 3.1x10^3uL (1.8-7.7) Lymphocytes # (Auto) 2.0x10^3/uL (1.0-4.8) Monocytes # (Auto) 0.8x10^3/uL (0.0-1.1) Eosinophils # (Auto) 0.4x10^3/uL (0.0-0.7) Basophils # (Auto) 0.1x10^3/uL (0.0-0.2) Sodium Level 144mmol/L (136-145) Potassium Level 4.2mmol/L (3.5-5.1) Chloride Level 108mmol/L (98-107) Carbon Dioxide Level 26mmol/L (21-32) Anion Gap 10 (6-14) Blood Urea Nitrogen 9mg/dL (8-26) Creatinine 0.7mg/dL (0.7-1.3) Estimated GFR (Cockcroft-Gault) 118.9 Glucose Level 100mg/dL (70-99) Calcium Level 8.5mg/dL (8.5-10.1) Magnesium Level 1.7mg/dL (1.8-2.4) Review of Systems Review of Systems co weakness co shaking Assessment and Plan Assessmemt and Plan Problems Medical Problems: (1) NSTEMI (non-ST elevated myocardial infarction) Status: Acute cc: chest pain, sob Acute [place] CAD with prior PCI/stenting diabetes, alcohol abuse tobacco abuse. Severe ETOH withdraw Plan Possible CABG vs another cath next week Cardiac monitoring PTOT ASA Heparin B blockade ETOH protocol Prog guarded Problems: Comment Review of Relevant I have reviewed the following items mike (where applicable) has been applied. Labs Laboratory Tests Test 09/23/16 03:30 09/23/16 10:10 09/23/16 17:40 09/24/16 01:00 White Blood Count 7.6x10^3/uL (4.0-11.0) Red Blood Count 3.30x10^6/uL (4.30-5.70) Hemoglobin 11.2g/dL (13.0-17.5) Hematocrit 33.5% (39.0-53.0) Mean Corpuscular Volume 101fL (79-100) Mean Corpuscular Hemoglobin 34pg (25-35) Mean Corpuscular Hemoglobin Concent 34g/dL (31-37) Red Cell Distribution Width 13.7% (11.5-14.5) Platelet Count 170x10^3/uL (140-400) Heparin Anti-Xa Act, Unfractionated 0.24IU/mL (0.30-0.70) 0.25IU/mL (0.30-0.70) 0.33IU/mL (0.30-0.70) 0.34IU/mL (0.30-0.70) Troponin I Quantitative 0.296ng/mL (0.000-0.055) 0.260ng/mL (0.000-0.055) Activated Partial Thromboplast Time 67SEC (24-38) Total Bilirubin 0.4mg/dL (0.2-1.0) Direct Bilirubin 0.2mg/dL (0.0-0.2) Aspartate Amino Transf (AST/SGOT) 29U/L (15-37) Alanine Aminotransferase (ALT/SGPT) 45U/L (16-63) Alkaline Phosphatase 45U/L (46-116) Total Protein 6.4g/dL (6.4-8.2) Albumin 3.2g/dL (3.4-5.0) Test 09/24/16 06:20 White Blood Count 6.3x10^3/uL (4.0-11.0) Red Blood Count 3.51x10^6/uL (4.30-5.70) Hemoglobin 11.8g/dL (13.0-17.5) Hematocrit 35.4% (39.0-53.0) Mean Corpuscular Volume 101fL (79-100) Mean Corpuscular Hemoglobin 34pg (25-35) Mean Corpuscular Hemoglobin Concent 34g/dL (31-37) Red Cell Distribution Width 13.6% (11.5-14.5) Platelet Count 181x10^3/uL (140-400) Neutrophils (%) (Auto) 49% (31-73) Lymphocytes (%) (Auto) 32% (24-48) Monocytes (%) (Auto) 12% (0-9) Eosinophils (%) (Auto) 6% (0-3) Basophils (%) (Auto) 1% (0-3) Neutrophils # (Auto) 3.1x10^3uL (1.8-7.7) Lymphocytes # (Auto) 2.0x10^3/uL (1.0-4.8) Monocytes # (Auto) 0.8x10^3/uL (0.0-1.1) Eosinophils # (Auto) 0.4x10^3/uL (0.0-0.7) Basophils # (Auto) 0.1x10^3/uL (0.0-0.2) Heparin Anti-Xa Act, Unfractionated 0.39IU/mL (0.30-0.70) Sodium Level 144mmol/L (136-145) Potassium Level 4.2mmol/L (3.5-5.1) Chloride Level 108mmol/L (98-107) Carbon Dioxide Level 26mmol/L (21-32) Anion Gap 10 (6-14) Blood Urea Nitrogen 9mg/dL (8-26) Creatinine 0.7mg/dL (0.7-1.3) Estimated GFR (Cockcroft-Gault) 118.9 Glucose Level 100mg/dL (70-99) Calcium Level 8.5mg/dL (8.5-10.1) Magnesium Level 1.7mg/dL (1.8-2.4) Laboratory Tests Test 09/24/16 01:00 09/24/16 06:20 Heparin Anti-Xa Act, Unfractionated 0.34IU/mL (0.30-0.70) 0.39IU/mL (0.30-0.70) White Blood Count 6.3x10^3/uL (4.0-11.0) Red Blood Count 3.51x10^6/uL (4.30-5.70) Hemoglobin 11.8g/dL (13.0-17.5) Hematocrit 35.4% (39.0-53.0) Mean Corpuscular Volume 101fL (79-100) Mean Corpuscular Hemoglobin 34pg (25-35) Mean Corpuscular Hemoglobin Concent 34g/dL (31-37) Red Cell Distribution Width 13.6% (11.5-14.5) Platelet Count 181x10^3/uL (140-400) Neutrophils (%) (Auto) 49% (31-73) Lymphocytes (%) (Auto) 32% (24-48) Monocytes (%) (Auto) 12% (0-9) Eosinophils (%) (Auto) 6% (0-3) Basophils (%) (Auto) 1% (0-3) Neutrophils # (Auto) 3.1x10^3uL (1.8-7.7) Lymphocytes # (Auto) 2.0x10^3/uL (1.0-4.8) Monocytes # (Auto) 0.8x10^3/uL (0.0-1.1) Eosinophils # (Auto) 0.4x10^3/uL (0.0-0.7) Basophils # (Auto) 0.1x10^3/uL (0.0-0.2) Sodium Level 144mmol/L (136-145) Potassium Level 4.2mmol/L (3.5-5.1) Chloride Level 108mmol/L (98-107) Carbon Dioxide Level 26mmol/L (21-32) Anion Gap 10 (6-14) Blood Urea Nitrogen 9mg/dL (8-26) Creatinine 0.7mg/dL (0.7-1.3) Estimated GFR (Cockcroft-Gault) 118.9 Glucose Level 100mg/dL (70-99) Calcium Level 8.5mg/dL (8.5-10.1) Magnesium Level 1.7mg/dL (1.8-2.4) Medications Current Medications Nitroglycerin (Nitrostat) 0.4 mg STK-MED ONCE SL ; Start 09/22/16 at 11:13; Stop 09/22/16 at 11:14; Status DC Aspirin (Children'S Aspirin) 324 mg 1X ONCE PO Last administered on 09/22/16 11:15; Start 09/22/16 at 11:15; Stop 09/22/16 at 11:20; Status DC Morphine Sulfate 4 mg 4 mg PRN Q15MIN PRN IV/SQ PAIN GREATER THAN 3/10 Last administered on 09/22/16 13:16; Start 09/22/16 at 11:15; Stop 09/23/16 at 11:14 ; Status DC Sodium Chloride (Iv Sodium Chloride 0.9% 1000ml Bag) 1,000 ml @ 1,000 mls/hr Q1H IV Last administered on 09/22/16 11:33; Start 09/22/16 at 11:15; Stop at 12:14; Status DC Nitroglycerin (Nitrostat) 0.4 mg PRN Q5MIN PRN SL CHEST PAIN Last administered on 09/22/16 12:03; Start 09/22/16 at 11:15 Lorazepam (Ativan) 2 mg 1X ONCE IV Last administered on 09/22/16 11:47; Start 09/22/16 at 11:45; Stop 09/22/16 at 11:46; Status DC Ondansetron HCl (Zofran) 8 mg 1X ONCE IV Last administered on 09/22/16 11:47 ; Start 09/22/16 at 11:45; Stop 09/22/16 at 11:46; Status DC Nitroglycerin 1 inch 1 inch 1X ONCE TP Last administered on 09/22/16 12:08; Start 09/22/16 at 12:15; Stop 09/22/16 at 12:16; Status DC Sodium Chloride 1,000 ml @ 0 mls/hr Q0M IV ; Start 09/22/16 at 13:01; Stop at 13:00; Status DC Magnesium Sulfate/ Dextrose (Magnesium Sulfate PREMIX 2GM) 50 ml @ 25 mls/hr 1X ONCE IV Last administered on 09/22/16 13:17; Start 09/22/16 at 14:00; Stop 09/22/16 at 15:59; Status DC Atorvastatin Calcium (Lipitor) 80 mg QHS PO Last administered on 09/24/16 20: 57; Start 09/22/16 at 21:00 Fentanyl Citrate (Fentanyl 2ml Vial) 100 mcg STK-MED ONCE .ROUTE ; Start at 13:06; Stop 09/22/16 at 13:07; Status DC Midazolam HCl (Versed) 2 mg STK-MED ONCE .ROUTE ; Start 09/22/16 at 13:06; Stop 09/22/16 at 13:07; Status DC Nitroglycerin (Nitroglycerin) 200 mcg STK-MED ONCE .ROUTE ; Start 09/22/16 at 13 :08; Stop 09/22/16 at 13:09; Status DC Verapamil HCl (Verapamil) 5 mg STK-MED ONCE .ROUTE ; Start 09/22/16 at 13:08; Stop 09/22/16 at 13:09; Status DC Heparin Sodium (Porcine) (Heparin Sodium) 10,000 unit STK-MED ONCE .ROUTE ; Start 09/22/16 at 13:08; Stop 09/22/16 at 13:09; Status DC Ondansetron HCl (Zofran) 4 mg PRN Q8HRS PRN IV NAUSEA/VOMITING; Start 09/22/16 at 13:30; Stop 09/23/16 at 13:29; Status DC Fentanyl Citrate (Fentanyl 2ml Vial) 50 mcg PRN Q2HR PRN IV PAIN; Start at 13:30; Stop 09/23/16 at 13:29; Status DC Iohexol 100 ml 100 ml STK-MED ONCE .ROUTE ; Start 09/22/16 at 13:30; Stop at 13:31; Status DC Heparin Sodium/ Sodium Chloride 1,000 ml @ As Directed STK-MED ONCE .ROUTE ; Start 09/22/16 at 13:30; Stop 09/22/16 at 13:31; Status DC Lidocaine HCl 20 ml 20 ml STK-MED ONCE .ROUTE ; Start 09/22/16 at 13:30; Stop at 13:31; Status DC Heparin Sodium/ Sodium Chloride 500 ml @ As Directed STK-MED ONCE .ROUTE ; Start 09/22/16 at 13:32; Stop 09/22/16 at 13:33; Status DC Tirofiban/Sodium Chloride (Aggrastat 12.5 Mg/250 ml Premix) 250 ml @ As Directed STK-MED ONCE IV ; Start 09/22/16 at 13:51; Stop 09/22/16 at 13:52; Status DC Nitroglycerin (Nitroglycerin) 200 mcg 1X ONCE IART Last administered on 15:13; Start 09/22/16 at 14:15; Stop 09/22/16 at 14:16; Status DC Verapamil HCl (Verapamil) 2.5 mg 1X ONCE IART Last administered on 09/22/16 15:15; Start 09/22/16 at 14:15; Stop 09/22/16 at 14:16; Status DC Heparin Sodium (Porcine) (Heparin Sodium) 2,500 unit 1X ONCE IART Last administered on 09/22/16 15:18; Start 09/22/16 at 14:15; Stop 09/22/16 at 14:16 ; Status DC Heparin Sodium/ Sodium Chloride 1,000 unit 1X ONCE IART Last administered on 15:16; Start 09/22/16 at 14:15; Stop 09/22/16 at 14:16; Status DC Heparin Sodium/ Sodium Chloride 1,000 unit 1X ONCE IART Last administered on 15:16; Start 09/22/16 at 14:15; Stop 09/22/16 at 14:16; Status DC Midazolam HCl (Versed) 2 mg 1X ONCE IV Last administered on 09/22/16 15:14; Start 09/22/16 at 14:15; Stop 09/22/16 at 14:16; Status DC Iohexol (Omnipaque 300 Mg/ml) 100 ml 1X ONCE IART Last administered on 15:15; Start 09/22/16 at 14:15; Stop 09/22/16 at 14:16; Status DC Heparin Sodium (Porcine) (Heparin Sodium) 4,000 unit 1X ONCE IV Last administered on 09/22/16 15:19; Start 09/22/16 at 14:15; Stop 09/22/16 at 14:16 ; Status DC Lidocaine HCl 20 ml 20 ml 1X ONCE IJ Last administered on 09/22/16 15:15; Start 09/22/16 at 14:15; Stop 09/22/16 at 14:16; Status DC Tirofiban/Sodium Chloride (Aggrastat 12.5 Mg/250 ml Premix) 250 ml @ 0 mls/hr CONT PRN IV PER PROTOCOL Last administered on 09/22/16 15:17; Start 09/22/16 at 13:57; Stop 09/23/16 at 07:56; Status DC Info (Do NOT chart on this entry -- for MONITORING) 1 each PRN DAILY PRN MC SEE COMMENTS; Start 09/22/16 at 14:30; Stop 09/24/16 at 14:29; Status DC Fentanyl Citrate (Fentanyl 2ml Vial) 50 mcg 1X ONCE IM ; Start 09/22/16 at 14: 30; Stop 09/22/16 at 14:31; Status Cancel Iohexol (Omnipaque 300 Mg/ml) 100 ml STK-MED ONCE .ROUTE ; Start 09/22/16 at 14: 34; Stop 09/22/16 at 14:35; Status DC Nitroglycerin 200 mcg 200 mcg 1X ONCE IART Last administered on 09/22/16 15: 13; Start 09/22/16 at 14:38; Stop 09/22/16 at 14:43; Status DC Nitroglycerin/ Dextrose 250 ml @ As Directed STK-MED ONCE IV ; Start 09/22/16 at 14:46; Stop 09/22/16 at 14:47; Status DC Nitroglycerin/ Dextrose 250 ml @ 0 mls/hr CONT PRN IV SEE I/O RECORD Last administered on 09/24/16 06:40; Start 09/22/16 at 15:00 Heparin Sodium/ Dextrose 500 ml @ 18 mls/hr CONT PRN IV SEE I/O RECORD Last administered on 09/24/16 12:20; Start 09/22/16 at 15:15 Heparin Sodium (Porcine) 1850 unit 1,850 unit PRN Q6HRS PRN IV FOR UFH LEVEL LESS THAN 0.2; Start 09/22/16 at 15:15 Heparin Sodium/ Dextrose 500 ml @ As Directed STK-MED ONCE IV ; Start 09/22/16 at 15:22; Stop 09/22/16 at 15:23; Status DC Fentanyl Citrate (Fentanyl 2ml Vial) 50 mcg 1X ONCE IV Last administered on 14:30; Start 09/22/16 at 14:30; Stop 09/22/16 at 16:14; Status DC Aspirin (Jocelyn Aspirin) 325 mg DAILYWBKFT PO Last administered on 09/24/16 08: 50; Start 09/23/16 at 08:00 Isosorbide Mononitrate (Imdur) 30 mg DAILY PO Last administered on 09/24/16 08 :51; Start 09/23/16 at 09:00 Metoprolol Tartrate (Lopressor) 12.5 mg BID PO Last administered on 09/24/16 20:57; Start 09/23/16 at 15:00 Ondansetron HCl (Zofran) 4 mg PRN Q6HRS PRN IV NAUSEA/VOMITING; Start 09/26/16 at 07:00; Stop 09/27/16 at 06:59 Fentanyl Citrate (Fentanyl 2ml Vial) 25 mcg PRN Q5MIN PRN IV MILD PAIN; Start 09/26/16 at 07:00; Stop 09/27/16 at 06:59 Fentanyl Citrate (Fentanyl 2ml Vial) 50 mcg PRN Q5MIN PRN IV MODERATE PAIN; Start 09/26/16 at 07:00; Stop 09/27/16 at 06:59 Morphine Sulfate 1 mg 1 mg PRN Q10MIN PRN IV SEVERE PAIN; Start 09/26/16 at 07: 00; Stop 09/27/16 at 06:59 Lactated Ringer's (Iv Lactated Ringers) 1,000 ml @ 0 mls/hr Q0M IV ; Start 09/26 at 07:00; Stop 09/26/16 at 18:59 Lidocaine HCl 2 ml PRN 1X PRN ID PRIOR TO IV START; Start 09/26/16 at 07:00; Stop 09/27/16 at 06:59 Hydromorphone HCl (Dilaudid) 0.5 mg PRN Q10MIN PRN IV SEV PAIN, Second choice; Start 09/26/16 at 07:00; Stop 09/27/16 at 06:59 Prochlorperazine Edisylate (Compazine) 5 mg PACU PRN PRN IV NAUSEA, MRX1; Start 09/26/16 at 07:00; Stop 09/27/16 at 06:59 Info (Anti-Coagulation Monitoring By Pharmacy) 1 each PRN DAILY PRN MC SEE COMMENTS; Start 09/23/16 at 15:15 Active Scripts Active NITROGLYCERIN SubLingual (Nitroglycerin) 0.4 Mg Tab.subl 1 Tab SL UD Isosorbide Mononitrate Er (Isosorbide Mononitrate) 30 Mg Tab.er.24h 1 Tab PO DAILY Reported Tamsulosin Hcl 0.4 Mg Cap.er.24h 0.4 Mg PO DAILY Lisinopril 10 Mg Tablet 1 Tab PO DAILY Atenolol 25 Mg Tablet 1 Tab PO DAILY Lo-Dose Aspirin EC (Aspirin) 81 Mg Tablet.dr 81 Mg PO Atorvastatin Calcium 80 Mg Tablet 40 Mg PO HS Vitals/I & O Vital Sign - Last 24 Hours 09/23/16 09/24/16 09/24/16 09/24/16 23:11 00:00 04:00 08:00 Temp 98.5 98.7 98.5 98.7 Pulse 60 56 69 Resp 12 14 B/P 119/77 104/65 104/60 Pulse Ox 93 96 O2 Delivery Room Air Room Air Room Air 09/24/16 09/24/16 09/24/16 09/24/16 08:00 08:51 09:01 12:00 Temp 98.6 98.6 Pulse 54 70 69 70 Resp 14 14 B/P 100/61 100/61 100/61 126/80 Pulse Ox 93 93 O2 Delivery Room Air Room Air 09/24/16 09/24/16 09/24/16 09/24/16 17:15 19:41 19:53 20:57 Temp 97.7 97.7 Pulse 59 59 Resp 18 B/P 122/73 122/73 Pulse Ox 97 O2 Delivery Room Air Room Air Room Air Intake and Output 09/23/16 09/23/16 09/24/16 14:59 22:59 06:59 Intake Total 780 ml 1792.12 ml Output Total 2225 ml 1950 ml 1350 ml Balance -1445 ml -157.88 ml -1350 ml HAYDEE ERIC III DO Sep 24, 2016 21:35
[2016-09-24 22:42] VITALS: BP 122/79
[2016-09-25 03:30] VITALS: BP 113/75
[2016-09-25 05:43] LABS: BASO # 0.1 x10^3/uL (0.0-0.2); BASO % 1 % (0-3); EOS % 5 % (0-3); HEMOGLOBIN 12.4 g/dL (13.0-17.5); LYMPH # 2.6 x10^3/uL (1.0-4.8); LYMPH % 31 % (24-48); MEAN CORPUSCULAR HEMOGLOBIN 34 pg (25-35); MEAN CORPUSCULAR HGB CONC 34 g/dL (31-37); MEAN CORPUSCULAR VOLUME 102 fL (79-100); MONO % 10 % (0-9); NEUT % 54 % (31-73); PLATELET COUNT 186 x10^3/uL (140-400); RED BLOOD COUNT 3.63 x10^6/uL (4.30-5.70); RED CELL DISTRIBUTION WIDTH 13.8 % (11.5-14.5); WHITE BLOOD COUNT 8.6 x10^3/uL (4.0-11.0)
[2016-09-25 06:02] LABS: CALCIUM 9.1 mg/dL (8.5-10.1); CREATININE 0.8 mg/dL (0.7-1.3); GFR 101.9; POTASSIUM 3.8 mmol/L (3.5-5.1)
[2016-09-25 07:47] VITALS: BP 108/66
[2016-09-25] MEDS: ISOSORBIDE MONONITRATE ER 30 MG TAB.ER.24H PO SCH (08:35)
[2016-09-25] MEDS: ASPIRIN 325 MG TABLET PO SCH (08:35)
[2016-09-25] MEDS: HEPARIN 25,000UTS/500ML PREMIX 500 ML IV PRN (09:49)
[2016-09-25] MEDS: METOPROLOL TART IMMED RELEASE 25 MG TABLET. PO SCH ×2 (10:05→22:28)
[2016-09-25 10:25] VITALS: BP 121/75
[2016-09-25] MEDS ORDERED: ZOLPIDEM 5 MG TABLET. PO PRN (12:30)
[2016-09-25 14:33] VITALS: BP 117/74
--- NOTE | 2016-09-25 16:09 | PDOC ---
PROGRESS NOTES Chief Complaint Chief Complaint cc: chest pain, sob prior IA CAD with prior PCI/stenting diabetes mellitus alcohol use disorder with withdrawal symptoms current tobacco use. History of Present Illness History of Present Illness Patient seen and evaluated at bedside. Transferred out of the ICU to telemetry floor. Patient is resting comfortably in no apparent distress. He reports feeling anxious and is having difficulty initiating sleep at night. Plan for CABG tomorrow 09/26. d/w nurse about plan of care. Vitals Vitals Vital Signs Date Time Temp Pulse Resp B/P Pulse Ox O2 Delivery O2 Flow Rate FiO2 09/25/16 14:33 97.5 71 19 117/74 97 Room Air 97.5 Physical Exam General: Alert, Oriented X3, Cooperative, No acute distress, Other Heart: Regular rate, Normal S1, Normal S2 Lungs: Clear, Other (negative accessory muscle use ) Abdomen: Soft, No tenderness Extremities: No clubbing, No cyanosis, No edema Skin: Other (Spider angiomas on chest) Labs LABS Laboratory Tests Test 09/25/16 05:00 White Blood Count 8.6x10^3/uL (4.0-11.0) Red Blood Count 3.63x10^6/uL (4.30-5.70) Hemoglobin 12.4g/dL (13.0-17.5) Hematocrit 37.0% (39.0-53.0) Mean Corpuscular Volume 102fL (79-100) Mean Corpuscular Hemoglobin 34pg (25-35) Mean Corpuscular Hemoglobin Concent 34g/dL (31-37) Red Cell Distribution Width 13.8% (11.5-14.5) Platelet Count 186x10^3/uL (140-400) Neutrophils (%) (Auto) 54% (31-73) Lymphocytes (%) (Auto) 31% (24-48) Monocytes (%) (Auto) 10% (0-9) Eosinophils (%) (Auto) 5% (0-3) Basophils (%) (Auto) 1% (0-3) Neutrophils # (Auto) 4.6x10^3uL (1.8-7.7) Lymphocytes # (Auto) 2.6x10^3/uL (1.0-4.8) Monocytes # (Auto) 0.9x10^3/uL (0.0-1.1) Eosinophils # (Auto) 0.4x10^3/uL (0.0-0.7) Basophils # (Auto) 0.1x10^3/uL (0.0-0.2) Heparin Anti-Xa Act, Unfractionated 0.42IU/mL (0.30-0.70) Sodium Level 137mmol/L (136-145) Potassium Level 3.8mmol/L (3.5-5.1) Chloride Level 103mmol/L (98-107) Carbon Dioxide Level 26mmol/L (21-32) Anion Gap 8 (6-14) Blood Urea Nitrogen 11mg/dL (8-26) Creatinine 0.8mg/dL (0.7-1.3) Estimated GFR (Cockcroft-Gault) 101.9 Glucose Level 98mg/dL (70-99) Calcium Level 9.1mg/dL (8.5-10.1) Review of Systems Review of Systems (+) insomnia (+) anxiety, restlessness Denies chest pain, palpitations, sob, abdominal pain, n/v/d, or fever/chills. Assessment and Plan Assessmemt and Plan Problems Medical Problems: (1) NSTEMI (non-ST elevated myocardial infarction) Status: Acute Assessment: 1.) NSTEMI, POA 2.) CAD with prior PCI/stents 3.) prior IA 4.) diabetes mellitus 5.) alcohol use disorder 6.) current tobacco use 7.) insomnia Plan: 1.) continue telemetry monitoring. Plan for CABGx2 tomorrow 09/26/[address] surgery 2.) continue perioperative heparin 3.) monitor for withdrawal symptoms. continue ativan PRN with multivitamin supplementation 4.) add ambien for sleep 5.) monitor AM labs 6.) PT/OT evaluation and treatment 7.) appreciate subspecialty input Problems: Comment Review of Relevant I have reviewed the following items mike (where applicable) has been applied. Labs Laboratory Tests Test 09/23/16 17:40 09/24/16 01:00 09/24/16 06:20 09/25/16 05:00 Activated Partial Thromboplast Time 67SEC (24-38) Heparin Anti-Xa Act, Unfractionated 0.33IU/mL (0.30-0.70) 0.34IU/mL (0.30-0.70) 0.39IU/mL (0.30-0.70) 0.42IU/mL (0.30-0.70) Total Bilirubin 0.4mg/dL (0.2-1.0) Direct Bilirubin 0.2mg/dL (0.0-0.2) Aspartate Amino Transf (AST/SGOT) 29U/L (15-37) Alanine Aminotransferase (ALT/SGPT) 45U/L (16-63) Alkaline Phosphatase 45U/L (46-116) Troponin I Quantitative 0.260ng/mL (0.000-0.055) Total Protein 6.4g/dL (6.4-8.2) Albumin 3.2g/dL (3.4-5.0) White Blood Count 6.3x10^3/uL (4.0-11.0) 8.6x10^3/uL (4.0-11.0) Red Blood Count 3.51x10^6/uL (4.30-5.70) 3.63x10^6/uL (4.30-5.70) Hemoglobin 11.8g/dL (13.0-17.5) 12.4g/dL (13.0-17.5) Hematocrit 35.4% (39.0-53.0) 37.0% (39.0-53.0) Mean Corpuscular Volume 101fL (79-100) 102fL (79-100) Mean Corpuscular Hemoglobin 34pg (25-35) 34pg (25-35) Mean Corpuscular Hemoglobin Concent 34g/dL (31-37) 34g/dL (31-37) Red Cell Distribution Width 13.6% (11.5-14.5) 13.8% (11.5-14.5) Platelet Count 181x10^3/uL (140-400) 186x10^3/uL (140-400) Neutrophils (%) (Auto) 49% (31-73) 54% (31-73) Lymphocytes (%) (Auto) 32% (24-48) 31% (24-48) Monocytes (%) (Auto) 12% (0-9) 10% (0-9) Eosinophils (%) (Auto) 6% (0-3) 5% (0-3) Basophils (%) (Auto) 1% (0-3) 1% (0-3) Neutrophils # (Auto) 3.1x10^3uL (1.8-7.7) 4.6x10^3uL (1.8-7.7) Lymphocytes # (Auto) 2.0x10^3/uL (1.0-4.8) 2.6x10^3/uL (1.0-4.8) Monocytes # (Auto) 0.8x10^3/uL (0.0-1.1) 0.9x10^3/uL (0.0-1.1) Eosinophils # (Auto) 0.4x10^3/uL (0.0-0.7) 0.4x10^3/uL (0.0-0.7) Basophils # (Auto) 0.1x10^3/uL (0.0-0.2) 0.1x10^3/uL (0.0-0.2) Sodium Level 144mmol/L (136-145) 137mmol/L (136-145) Potassium Level 4.2mmol/L (3.5-5.1) 3.8mmol/L (3.5-5.1) Chloride Level 108mmol/L (98-107) 103mmol/L (98-107) Carbon Dioxide Level 26mmol/L (21-32) 26mmol/L (21-32) Anion Gap 10 (6-14) 8 (6-14) Blood Urea Nitrogen 9mg/dL (8-26) 11mg/dL (8-26) Creatinine 0.7mg/dL (0.7-1.3) 0.8mg/dL (0.7-1.3) Estimated GFR (Cockcroft-Gault) 118.9 101.9 Glucose Level 100mg/dL (70-99) 98mg/dL (70-99) Calcium Level 8.5mg/dL (8.5-10.1) 9.1mg/dL (8.5-10.1) Magnesium Level 1.7mg/dL (1.8-2.4) Laboratory Tests Test 09/25/16 05:00 White Blood Count 8.6x10^3/uL (4.0-11.0) Red Blood Count 3.63x10^6/uL (4.30-5.70) Hemoglobin 12.4g/dL (13.0-17.5) Hematocrit 37.0% (39.0-53.0) Mean Corpuscular Volume 102fL (79-100) Mean Corpuscular Hemoglobin 34pg (25-35) Mean Corpuscular Hemoglobin Concent 34g/dL (31-37) Red Cell Distribution Width 13.8% (11.5-14.5) Platelet Count 186x10^3/uL (140-400) Neutrophils (%) (Auto) 54% (31-73) Lymphocytes (%) (Auto) 31% (24-48) Monocytes (%) (Auto) 10% (0-9) Eosinophils (%) (Auto) 5% (0-3) Basophils (%) (Auto) 1% (0-3) Neutrophils # (Auto) 4.6x10^3uL (1.8-7.7) Lymphocytes # (Auto) 2.6x10^3/uL (1.0-4.8) Monocytes # (Auto) 0.9x10^3/uL (0.0-1.1) Eosinophils # (Auto) 0.4x10^3/uL (0.0-0.7) Basophils # (Auto) 0.1x10^3/uL (0.0-0.2) Heparin Anti-Xa Act, Unfractionated 0.42IU/mL (0.30-0.70) Sodium Level 137mmol/L (136-145) Potassium Level 3.8mmol/L (3.5-5.1) Chloride Level 103mmol/L (98-107) Carbon Dioxide Level 26mmol/L (21-32) Anion Gap 8 (6-14) Blood Urea Nitrogen 11mg/dL (8-26) Creatinine 0.8mg/dL (0.7-1.3) Estimated GFR (Cockcroft-Gault) 101.9 Glucose Level 98mg/dL (70-99) Calcium Level 9.1mg/dL (8.5-10.1) Medications Current Medications Nitroglycerin (Nitrostat) 0.4 mg STK-MED ONCE SL ; Start 09/22/16 at 11:13; Stop 09/22/16 at 11:14; Status DC Aspirin (Children'S Aspirin) 324 mg 1X ONCE PO Last administered on 09/22/16 11:15; Start 09/22/16 at 11:15; Stop 09/22/16 at 11:20; Status DC Morphine Sulfate 4 mg 4 mg PRN Q15MIN PRN IV/SQ PAIN GREATER THAN 3/10 Last administered on 09/22/16 13:16; Start 09/22/16 at 11:15; Stop 09/23/16 at 11:14 ; Status DC Sodium Chloride (Iv Sodium Chloride 0.9% 1000ml Bag) 1,000 ml @ 1,000 mls/hr Q1H IV Last administered on 09/22/16 11:33; Start 09/22/16 at 11:15; Stop at 12:14; Status DC Nitroglycerin (Nitrostat) 0.4 mg PRN Q5MIN PRN SL CHEST PAIN Last administered on 09/22/16 12:03; Start 09/22/16 at 11:15 Lorazepam (Ativan) 2 mg 1X ONCE IV Last administered on 09/22/16 11:47; Start 09/22/16 at 11:45; Stop 09/22/16 at 11:46; Status DC Ondansetron HCl (Zofran) 8 mg 1X ONCE IV Last administered on 09/22/16 11:47 ; Start 09/22/16 at 11:45; Stop 09/22/16 at 11:46; Status DC Nitroglycerin 1 inch 1 inch 1X ONCE TP Last administered on 09/22/16 12:08; Start 09/22/16 at 12:15; Stop 09/22/16 at 12:16; Status DC Sodium Chloride 1,000 ml @ 0 mls/hr Q0M IV ; Start 09/22/16 at 13:01; Stop at 13:00; Status DC Magnesium Sulfate/ Dextrose (Magnesium Sulfate PREMIX 2GM) 50 ml @ 25 mls/hr 1X ONCE IV Last administered on 09/22/16 13:17; Start 09/22/16 at 14:00; Stop 09/22/16 at 15:59; Status DC Atorvastatin Calcium (Lipitor) 80 mg QHS PO Last administered on 09/24/16t 20: 57; Start 09/22/16 at 21:00 Fentanyl Citrate (Fentanyl 2ml Vial) 100 mcg STK-MED ONCE .ROUTE ; Start at 13:06; Stop 09/22/16 at 13:07; Status DC Midazolam HCl (Versed) 2 mg STK-MED ONCE .ROUTE ; Start 09/22/16 at 13:06; Stop 09/22/16 at 13:07; Status DC Nitroglycerin (Nitroglycerin) 200 mcg STK-MED ONCE .ROUTE ; Start 09/22/16 at 13 :08; Stop 09/22/16 at 13:09; Status DC Verapamil HCl (Verapamil) 5 mg STK-MED ONCE .ROUTE ; Start 09/22/16 at 13:08; Stop 09/22/16 at 13:09; Status DC Heparin Sodium (Porcine) (Heparin Sodium) 10,000 unit STK-MED ONCE .ROUTE ; Start 09/22/16 at 13:08; Stop 09/22/16 at 13:09; Status DC Ondansetron HCl (Zofran) 4 mg PRN Q8HRS PRN IV NAUSEA/VOMITING; Start 09/22/16 at 13:30; Stop 09/23/16 at 13:29; Status DC Fentanyl Citrate (Fentanyl 2ml Vial) 50 mcg PRN Q2HR PRN IV PAIN; Start at 13:30; Stop 09/23/16 at 13:29; Status DC Iohexol 100 ml 100 ml STK-MED ONCE .ROUTE ; Start 09/22/16 at 13:30; Stop at 13:31; Status DC Heparin Sodium/ Sodium Chloride 1,000 ml @ As Directed STK-MED ONCE .ROUTE ; Start 09/22/16 at 13:30; Stop 09/22/16 at 13:31; Status DC Lidocaine HCl 20 ml 20 ml STK-MED ONCE .ROUTE ; Start 09/22/16 at 13:30; Stop at 13:31; Status DC Heparin Sodium/ Sodium Chloride 500 ml @ As Directed STK-MED ONCE .ROUTE ; Start 09/22/16 at 13:32; Stop 09/22/16 at 13:33; Status DC Tirofiban/Sodium Chloride (Aggrastat 12.5 Mg/250 ml Premix) 250 ml @ As Directed STK-MED ONCE IV ; Start 09/22/16 at 13:51; Stop 09/22/16 at 13:52; Status DC Nitroglycerin (Nitroglycerin) 200 mcg 1X ONCE IART Last administered on 15:13; Start 09/22/16 at 14:15; Stop 09/22/16 at 14:16; Status DC Verapamil HCl (Verapamil) 2.5 mg 1X ONCE IART Last administered on 09/22/16 15:15; Start 09/22/16 at 14:15; Stop 09/22/16 at 14:16; Status DC Heparin Sodium (Porcine) (Heparin Sodium) 2,500 unit 1X ONCE IART Last administered on 09/22/16 15:18; Start 09/22/16 at 14:15; Stop 09/22/16 at 14:16 ; Status DC Heparin Sodium/ Sodium Chloride 1,000 unit 1X ONCE IART Last administered on 15:16; Start 09/22/16 at 14:15; Stop 09/22/16 at 14:16; Status DC Heparin Sodium/ Sodium Chloride 1,000 unit 1X ONCE IART Last administered on 15:16; Start 09/22/16 at 14:15; Stop 09/22/16 at 14:16; Status DC Midazolam HCl (Versed) 2 mg 1X ONCE IV Last administered on 09/22/16 15:14; Start 09/22/16 at 14:15; Stop 09/22/16 at 14:16; Status DC Iohexol (Omnipaque 300 Mg/ml) 100 ml 1X ONCE IART Last administered on 15:15; Start 09/22/16 at 14:15; Stop 09/22/16 at 14:16; Status DC Heparin Sodium (Porcine) (Heparin Sodium) 4,000 unit 1X ONCE IV Last administered on 09/22/16 15:19; Start 09/22/16 at 14:15; Stop 09/22/16 at 14:16 ; Status DC Lidocaine HCl 20 ml 20 ml 1X ONCE IJ Last administered on 09/22/16 15:15; Start 09/22/16 at 14:15; Stop 09/22/16 at 14:16; Status DC Tirofiban/Sodium Chloride (Aggrastat 12.5 Mg/250 ml Premix) 250 ml @ 0 mls/hr CONT PRN IV PER PROTOCOL Last administered on 09/22/16 15:17; Start 09/22/16 at 13:57; Stop 09/23/16 at 07:56; Status DC Info (Do NOT chart on this entry -- for MONITORING) 1 each PRN DAILY PRN MC SEE COMMENTS; Start 09/22/16 at 14:30; Stop 09/24/16 at 14:29; Status DC Fentanyl Citrate (Fentanyl 2ml Vial) 50 mcg 1X ONCE IM ; Start 09/22/16 at 14: 30; Stop 09/22/16 at 14:31; Status Cancel Iohexol (Omnipaque 300 Mg/ml) 100 ml STK-MED ONCE .ROUTE ; Start 09/22/16 at 14: 34; Stop 09/22/16 at 14:35; Status DC Nitroglycerin 200 mcg 200 mcg 1X ONCE IART Last administered on 09/22/16 15: 13; Start 09/22/16 at 14:38; Stop 09/22/16 at 14:43; Status DC Nitroglycerin/ Dextrose 250 ml @ As Directed STK-MED ONCE IV ; Start 09/22/16 at 14:46; Stop 09/22/16 at 14:47; Status DC Nitroglycerin/ Dextrose 250 ml @ 0 mls/hr CONT PRN IV SEE I/O RECORD Last administered on 09/24/16 06:40; Start 09/22/16 at 15:00 Heparin Sodium/ Dextrose 500 ml @ 18 mls/hr CONT PRN IV SEE I/O RECORD Last administered on 09/25/16 09:49; Start 09/22/16 at 15:15 Heparin Sodium (Porcine) 1850 unit 1,850 unit PRN Q6HRS PRN IV FOR UFH LEVEL LESS THAN 0.2; Start 09/22/16 at 15:15 Heparin Sodium/ Dextrose 500 ml @ As Directed STK-MED ONCE IV ; Start 09/22/16 at 15:22; Stop 09/22/16 at 15:23; Status DC Fentanyl Citrate (Fentanyl 2ml Vial) 50 mcg 1X ONCE IV Last administered on 14:30; Start 09/22/16 at 14:30; Stop 09/22/16 at 16:14; Status DC Aspirin (Jocelyn Aspirin) 325 mg DAILYWBKFT PO Last administered on 09/25/16 08: 35; Start 09/23/16 at 08:00 Isosorbide Mononitrate (Imdur) 30 mg DAILY PO Last administered on 09/25/16 08 :35; Start 09/23/16 at 09:00 Metoprolol Tartrate (Lopressor) 12.5 mg BID PO Last administered on 09/25/16 10:05; Start 09/23/16 at 15:00 Ondansetron HCl (Zofran) 4 mg PRN Q6HRS PRN IV NAUSEA/VOMITING; Start 09/26/16 at 07:00; Stop 09/27/16 at 06:59 Fentanyl Citrate (Fentanyl 2ml Vial) 25 mcg PRN Q5MIN PRN IV MILD PAIN; Start 09/26/16 at 07:00; Stop 09/27/16 at 06:59 Fentanyl Citrate (Fentanyl 2ml Vial) 50 mcg PRN Q5MIN PRN IV MODERATE PAIN; Start 09/26/16 at 07:00; Stop 09/27/16 at 06:59 Morphine Sulfate 1 mg 1 mg PRN Q10MIN PRN IV SEVERE PAIN; Start 09/26/16 at 07: 00; Stop 09/27/16 at 06:59 Lactated Ringer's (Iv Lactated Ringers) 1,000 ml @ 0 mls/hr Q0M IV ; Start 09/26 at 07:00; Stop 09/26/16 at 18:59 Lidocaine HCl 2 ml PRN 1X PRN ID PRIOR TO IV START; Start 09/26/16 at 07:00; Stop 09/27/16 at 06:59 Hydromorphone HCl (Dilaudid) 0.5 mg PRN Q10MIN PRN IV SEV PAIN, Second choice; Start 09/26/16 at 07:00; Stop 09/27/16 at 06:59 Prochlorperazine Edisylate (Compazine) 5 mg PACU PRN PRN IV NAUSEA, MRX1; Start 09/26/16 at 07:00; Stop 09/27/16 at 06:59 Info 1 each 1 each PRN DAILY PRN MC SEE COMMENTS; Start 09/23/16 at 15:15 Heparin Sodium (Porcine) 33214 unit/Lactated Ringer's 1,020 ml @ 1,020 mls/hr 1X PERIOP ONCE IRR ; Start 09/26/16 at 06:00; Stop 09/26/16 at 06:59 Potassium Chloride 70 meq/ Sodium Bicarbonate 12.5 meq/Lidocaine HCl 24 ml/ Parenteral Electrolytes 571.5 ml @ 571.5 mls/ hr 1X PERIOP ONCE IRR ; Start at 06:00; Stop 09/26/16 at 06:59 Potassium Chloride/Sodium Bicarbonate/ Parenteral Electrolytes (Isolyte S) 520 ml @ 520 mls/hr 1X PERIOP ONCE IRR ; Start 09/26/16 at 06:00; Stop 09/26/16 at 06:59 Vancomycin HCl (Vanco) 10 gm 1X ONCE CEMENT ; Start 09/26/16 at 06:00; Stop 09/26 at 06:01 Zolpidem Tartrate (Ambien) 10 mg HS PO ; Start 09/25/16 at 21:00; Stop 09/25/16 at 21:00; Status DC Lorazepam (Ativan) 1 mg PRN Q6HRS PRN PO ANXIETY / AGITATION; Start 09/25/16 at 12:30 Zolpidem Tartrate (Ambien) 5 mg PRN QHS PRN PO INSOMNIA, MRP X1 IN 30 MIN; Start 09/25/16 at 12:30 Active Scripts Active NITROGLYCERIN SubLingual (Nitroglycerin) 0.4 Mg Tab.subl 1 Tab SL UD Isosorbide Mononitrate Er (Isosorbide Mononitrate) 30 Mg Tab.er.24h 1 Tab PO DAILY Reported Tamsulosin Hcl 0.4 Mg Cap.er.24h 0.4 Mg PO DAILY Lisinopril 10 Mg Tablet 1 Tab PO DAILY Atenolol 25 Mg Tablet 1 Tab PO DAILY Lo-Dose Aspirin EC (Aspirin) 81 Mg Tablet.dr 81 Mg PO Atorvastatin Calcium 80 Mg Tablet 40 Mg PO HS Vitals/I & O Vital Sign - Last 24 Hours 09/24/16 09/24/16 09/24/16 09/24/16 17:15 19:41 19:53 20:57 Temp 97.7 97.7 Pulse 59 59 Resp 18 B/P 122/73 122/73 Pulse Ox 97 O2 Delivery Room Air Room Air Room Air 09/24/16 09/25/16 09/25/16 09/25/16 22:42 03:30 07:47 08:00 Temp 98.4 97.7 97.8 98.4 97.7 97.8 Pulse 65 58 56 Resp B/P 122/79 113/75 108/66 Pulse Ox 97 97 96 O2 Delivery Room Air Room Air Room Air Room Air 09/25/16 09/25/16 09/25/16 09/25/16 08:35 10:05 10:25 14:33 Temp 97.9 97.5 97.9 97.5 Pulse 56 70 64 71 Resp 18 19 B/P 108/66 108/66 121/75 117/74 Pulse Ox 97 97 O2 Delivery Room Air Room Air Intake and Output 09/24/16 09/24/16 09/25/16 15:00 23:00 07:00 Intake Total 220 ml 1460 ml Balance 220 ml 1460 ml HAYDEE ERIC III DO Sep 25, 2016 16:09
[2016-09-25 19:12] VITALS: BP 124/87
[2016-09-25] MEDS ORDERED: ZOLPIDEM 5 MG TABLET. PO SCH (21:00)
[2016-09-25] MEDS ORDERED: PROPOFOL 0 ML IV ONE (21:28)
[2016-09-25] MEDS ORDERED: NITROGLYCERIN PREMIX 250 ML IV ONE (21:28)
[2016-09-25] MEDS ORDERED: ROCURONIUM 100 MG/10 ML VIAL. ONE (21:28)
[2016-09-25] MEDS ORDERED: EPINEPHrine 1 MG/ML VIAL ONE (21:28)
[2016-09-25] MEDS ORDERED: PHENYLEPHRINE 10 MG/ML VIAL. ONE (21:28)
[2016-09-25] MEDS ORDERED: ETOMIDATE 20 MG/10 ML VIAL. IV ONE (21:28)
[2016-09-25] MEDS ORDERED: ePHEDrine PF IN SALINE 50 MG/5 ML DISP.SYRIN IV ONE (21:29)
[2016-09-25] MEDS ORDERED: AMINOCAPROIC ACID 5,000 MG/20 ML VIAL. IV ONE ×3 (21:29→21:57)
[2016-09-25] MEDS ORDERED: HEPARIN 30,000 UNIT/30 ML VIAL. ONE (21:29)
[2016-09-25] MEDS ORDERED: ISOFLURANE > 120 MINUTES. IH ONE (21:47)
[2016-09-25] MEDS ORDERED: HEPARIN 25,000UTS/500ML PREMIX 500 ML IV PRN (22:15)
[2016-09-25] MEDS ORDERED: NITROGLYCERIN PREMIX 250 ML IV PRN (22:15)
[2016-09-25] MEDS: ATORVASTATIN CALCIUM 40 MG TABLET. PO SCH (22:22)
[2016-09-25] MEDS: LORazepam 1 MG TABLET PO PRN (22:28)
[2016-09-25 23:26] VITALS: BP 149/92
[2016-09-26] VITALS (15 sets, daily range): BP systolic 0–166; BP diastolic 0–107
[2016-09-26 05:15] LABS: BASO # 0.1 x10^3/uL (0.0-0.2); BASO % 1 % (0-3); EOS % 5 % (0-3); HEMATOCRIT 37.6 % (39.0-53.0); HEMOGLOBIN 12.9 g/dL (13.0-17.5); LYMPH # 2.4 x10^3/uL (1.0-4.8); LYMPH % 28 % (24-48); MEAN CORPUSCULAR HEMOGLOBIN 35 pg (25-35); MEAN CORPUSCULAR HGB CONC 34 g/dL (31-37); MEAN CORPUSCULAR VOLUME 101 fL (79-100); MONO % 10 % (0-9); NEUT % 56 % (31-73); PLATELET COUNT 200 x10^3/uL (140-400); RED BLOOD COUNT 3.72 x10^6/uL (4.30-5.70); RED CELL DISTRIBUTION WIDTH 13.3 % (11.5-14.5); WHITE BLOOD COUNT 8.7 x10^3/uL (4.0-11.0)
[2016-09-26 05:36] LABS: CALCIUM 9.5 mg/dL (8.5-10.1); CREATININE 0.9 mg/dL (0.7-1.3); POTASSIUM 3.7 mmol/L (3.5-5.1)
[2016-09-26] MEDS ORDERED: POTASSIUM CHLORIDE 15 MEQ, SODIUM BICARBONATE VIAL 12.5 MEQ in IV ELECTROLYTE-S (PH 7.4... IRR ONE (06:00)
[2016-09-26] MEDS ORDERED: POTASSIUM CHLORIDE 70 MEQ, SODIUM BICARBONATE VIAL 12.5 MEQ, LIDOCAINE 2% 24 ML in IV E... IRR ONE (06:00)
[2016-09-26] MEDS ORDERED: VANCOMYCIN 10GM VIAL for OR. CEMENT ONE ×2 (06:00→07:15)
[2016-09-26] MEDS ORDERED: HEPARIN 20,000 UNIT in IV RINGERS,LACTATED 1000ML 1,000 ML IRR ONE (06:00)
[2016-09-26] MEDS ORDERED: PROCHLORPERAZINE 10 MG/2 ML VIAL. IV PRN (07:00)
[2016-09-26] MEDS ORDERED: fentaNYL PF VIAL 100 MCG/2 ML VIAL IV PRN ×2 (07:00)
[2016-09-26] MEDS ORDERED: ONDANSETRON PF 4 MG/2 ML VIAL. IV PRN ×2 (07:00→13:45)
[2016-09-26] MEDS ORDERED: MORPHINE SULFATE 2 MG/ML DISP.SYRIN. IV PRN (07:00)
[2016-09-26] MEDS ORDERED: LIDOCAINE 1% 1 ML SYRINGE. ID PRN (07:00)
[2016-09-26] MEDS ORDERED: IV RINGERS,LACTATED 1000ML 1,000 ML IV SCH (07:00)
[2016-09-26] MEDS ORDERED: HYDROmorphone 2 MG/ML VIAL IV PRN (07:00)
[2016-09-26 07:07] LABS: INR 0.9 (0.8-1.1); PROTHROMBIN TIME PATIENT 11.5 SEC (11.7-14.0)
[2016-09-26] MEDS ORDERED: SUFentanil 100 MCG/2 ML AMPUL. ONE ×2 (07:10→09:21)
[2016-09-26] MEDS ORDERED: MIDAZOLAM HCL/PF 5 MG/5 ML VIAL. ONE (07:10)
--- NOTE | 2016-09-26 07:11 | RAD ---
APPROVED REPORT Patient Location: IN-PATIENT Laterality:Bilateral Indications PRE-OP Doppler Spectral Velocity Analysis Right Left pCCA 104/27 cm/spCCA 97/26 cm/s mCCA 85/19 cm/smCCA 92/24 cm/s dCCA 75/22 cm/sdCCA 80/26 cm/s ECA 81/ cm/sECA 82/ cm/s pICA 75/41 cm/spICA 75/37 cm/s Alvarez 101/42 cm/smICA 82/39 cm/s dICA 103/41 cm/sdICA 81/36 cm/s Vert. 38/ cm/sVert. 82/ cm/s ICA/CCA 0.99ICA/CCA 0.85 Findings Common carotid arteries, internal carotid arteries and external carotid arteries demonstrate mild ath erosclerotic plaque with minimal intimal hyperplasia. On the right spectral waveforms and color Doppler demonstrate normal velocities without any significa nt obstructive disease noted. On the left spectral waveforms and color Doppler demonstrate normal francy ocities without any significant obstructive disease noted. Normal anterograde vertebral velocities noted. Critical Notification Critical Value: No <Conclusion> No high-grade flow-limiting stenosis in the bilateral carotid arterial system.
[2016-09-26] MEDS ORDERED: PAPAVERINE 60 MG/2 ML VIAL FOR OR ONLY. ONE (07:13)
[2016-09-26] MEDS ORDERED: 0.9 % SODIUM CHLORIDE 50 ML VIAL. IJ ONE (07:13)
[2016-09-26] MEDS ORDERED: SURGICEL HEMOSTAT 4X8 EACH. ONE (07:13)
--- NOTE | 2016-09-26 07:14 | RAD ---
APPROVED REPORT Patient Location: IN-PATIENT Indications PRE-OP CABG Risk Factors Smoking Vein Measurements Great Saphenous Small Saphenous RightLeft RightLeft Saph-Fem. Junction 3.90mm3.90mmProximal 3.50mm3.00mm Mid Thigh 3.70mm3.40mmMid 3.90mm3.00mm Distal Thigh 3.80mm3.50mmDistal 3.10mm2.60mm Proximal Calf 4.00mm2.80mm Mid Calf 3.00mm2.40mm Distal Calf 2.70mm2.80mm Findings Dailey scale images of the right great saphenous vein reveal normal caliber vessel as noted above with compressibility throughout its course. Below the knee the right great saphenous vein appears to bifur [place]. The right lesser saphenous vein is patent with dimensions as noted above. On the left the great saphenous vein has adequate dimensions as noted above. The vein is compressible fully throughout its course. The left lesser saphenous vein is patent and fully compressible with di mensions as noted above. Critical Notification Critical Value: No <Conclusion> Suitable bilateral greater and lesser saphenous veins for bypass grafting. Of note the right great sa phenous vein appears to bifurcate below the knee.
[2016-09-26] MEDS: ASPIRIN 300 MG SUPP.RECT ONE ×3 (10:32→13:49)
[2016-09-26] MEDS ORDERED: ROCURONIUM 50 MG/5 ML VIAL. ONE (10:37)
[2016-09-26] MEDS ORDERED: INSULIN REGULAR VIAL 150 UNIT in 0.9 % SODIUM CHLORIDE 150ML 150 ML IV ONE (11:30)
[2016-09-26] MEDS ORDERED: MIDAZOLAM HCL/PF 2 MG/2 ML VIAL. ONE (12:14)
[2016-09-26] MEDS ORDERED: PROTAMINE 50 MG/5 ML VIAL. IV ONE ×2 (12:22→12:23)
[2016-09-26] MEDS ORDERED: PROTAMINE 250 MG/25 ML VIAL IV ONE ×2 (12:22→12:23)
[2016-09-26] MEDS ORDERED: CALCIUM CHLORIDE 1,000 MG/10 ML DISP.SYRIN IV ONE ×2 (12:48→15:15)
[2016-09-26] MEDS ORDERED: LIDOCAINE 2% 100 MG/5 ML SYRINGE. ONE (12:48)
[2016-09-26] MEDS ORDERED: HEPARIN 30,000 UNIT/30 ML VIAL. ONE (12:48)
[2016-09-26] MEDS ORDERED: HEPARIN for IV BOLUS 10,000 UNIT/10 ML VIAL. ONE (12:48)
[2016-09-26] MEDS ORDERED: MANNITOL 25% 12.5 G/50 ML VIAL FOR OR. ONE (12:48)
[2016-09-26] MEDS ORDERED: ALBUMIN HUMAN 25% 100 ML IV ONE (12:48)
[2016-09-26] MEDS ORDERED: SODIUM BICARB ADULT 8.4% 50 MEQ/50 ML DISP.SYRIN. ONE (12:48)
[2016-09-26 13:42] LABS: HEMATOCRIT 29.3 % (39.0-53.0); HEMOGLOBIN 9.8 g/dL (13.0-17.5)
[2016-09-26 13:44] LABS: WHITE BLOOD COUNT 13.7 x10^3/uL (4.0-11.0)
[2016-09-26] MEDS ORDERED: ALBUMIN HUMAN 5% 500 ML IV PRN ×4 (13:45→14:07)
[2016-09-26] MEDS ORDERED: 0.9 % SODIUM CHLORIDE 10 ML DISP.SYRIN. IV PRN (13:45)
[2016-09-26] MEDS ORDERED: ACETAMINOPHEN 650 MG SUPP.RECT. PR PRN (13:45)
[2016-09-26] MEDS ORDERED: INSULIN REGULAR VIAL 150 UNIT in 0.9 % SODIUM CHLORIDE 150ML 150 ML IV PRN (13:45)
[2016-09-26] MEDS ORDERED: MEPERIDINE PF 25 MG/ML VIAL. IV PRN (13:45)
[2016-09-26] MEDS ORDERED: ELECTROLYTE (ICU) PROTOCOL. MC PRN (13:45)
[2016-09-26] MEDS ORDERED: ACETAMINOPHEN 325 MG TABLET. PO PRN (13:45)
[2016-09-26] MEDS ORDERED: KCL PER PROTOCOL MC PRN (13:45)
[2016-09-26] MEDS ORDERED: oxyCODONE/APAP 5/325 1 TAB TABLET PO PRN (13:45)
[2016-09-26] MEDS ORDERED: CLEVIDIPINE BUTYRATE 100 ML IV PRN (13:45)
[2016-09-26] MEDS ORDERED: METOCLOPRAMIDE HCL 10 MG/2 ML VIAL. IV PRN (13:45)
[2016-09-26] MEDS ORDERED: BISACODYL 10 MG SUPP.RECT. PR PRN (13:45)
[2016-09-26] MEDS ORDERED: ALBUMIN HUMAN 5% 500 ML IV ONE (13:45)
[2016-09-26] MEDS ORDERED: DEXTROSE 50% 25 GM / 50ML DISP.SYRIN. IV PRN (13:45)
[2016-09-26] MEDS ORDERED: PROPOFOL 100 ML IV PRN (13:45)
[2016-09-26 13:50] LABS: INR 1.4 (0.8-1.1)
[2016-09-26 13:55] LABS: PROTHROMBIN TIME PATIENT 16.7 SEC (11.7-14.0)
[2016-09-26 14:03] LABS: ART BE ISTAT 1 mmol/L (0-3); ART GLUC ISTAT 245 mg/dL (70-99); ART HCO3 ISTAT 26 mmol/L (21-28); ART HCT ISTAT 28 % (37-52); ART HGB ISTAT 9.5 g/dL (14-18); ART ION CA ISTAT 1.04 mmol/L (1.13-1.32); ART NA ISTAT 135 mmol/L (135-145); ART PCO2 ISTAT 40 mmHg (35-45); ART PH ISTAT 7.42 (7.35-7.45); ART PO2 ISTAT 306 mmHg (75-100); ART SAT O2 SAT 100 % (95-99); ART TCO2 ISTAT 27 mmol/L (21-32); TOSPEC ART
[2016-09-26 14:03] LABS: ART BE ISTAT -4 mmol/L (0-3); ART GLUC ISTAT 283 mg/dL (70-99); ART HCO3 ISTAT 21 mmol/L (21-28); ART HCT ISTAT 29 % (37-52); ART HGB ISTAT 9.9 g/dL (14-18); ART ION CA ISTAT 1.03 mmol/L (1.13-1.32); ART K ISTAT 4.9 mmol/L (3.5-5.0); ART NA ISTAT 133 mmol/L (135-145); ART PCO2 ISTAT 37 mmHg (35-45); ART PH ISTAT 7.36 (7.35-7.45); ART PO2 ISTAT 340 mmHg (75-100); ART SAT O2 SAT 100 % (95-99); ART TCO2 ISTAT 22 mmol/L (21-32); TOSPEC ART
[2016-09-26 14:03] LABS: ART BE ISTAT -2 mmol/L (0-3); ART GLUC ISTAT 156 mg/dL (70-99); ART HCO3 ISTAT 24 mmol/L (21-28); ART HCT ISTAT 25 % (37-52); ART HGB ISTAT 8.5 g/dL (14-18); ART ION CA ISTAT 1.72 mmol/L (1.13-1.32); ART K ISTAT 3.4 mmol/L (3.5-5.0); ART NA ISTAT 139 mmol/L (135-145); ART PCO2 ISTAT 41 mmHg (35-45); ART PH ISTAT 7.37 (7.35-7.45); ART PO2 ISTAT 318 mmHg (75-100); ART SAT O2 SAT 100 % (95-99); ART TCO2 ISTAT 25 mmol/L (21-32); TOSPEC ART
[2016-09-26 14:03] LABS: ART BE ISTAT -6 mmol/L (0-3); ART GLUC ISTAT 89 mg/dL (70-99); ART HCO3 ISTAT 19 mmol/L (21-28); ART HCT ISTAT 30 % (37-52); ART HGB ISTAT 10.2 g/dL (14-18); ART ION CA ISTAT 1.15 mmol/L (1.13-1.32); ART K ISTAT 3.3 mmol/L (3.5-5.0); ART NA ISTAT 141 mmol/L (135-145); ART PCO2 ISTAT 29 mmHg (35-45); ART PH ISTAT 7.42 (7.35-7.45); ART PO2 ISTAT 201 mmHg (75-100); ART SAT O2 SAT 100 % (95-99); ART TCO2 ISTAT 20 mmol/L (21-32); TOSPEC ART
[2016-09-26 14:03] LABS: ART BE ISTAT -2 mmol/L (0-3); ART GLUC ISTAT 134 mg/dL (70-99); ART HCO3 ISTAT 23 mmol/L (21-28); ART HCT ISTAT 29 % (37-52); ART HGB ISTAT 9.9 g/dL (14-18); ART ION CA ISTAT 1.62 mmol/L (1.13-1.32); ART K ISTAT 3.5 mmol/L (3.5-5.0); ART NA ISTAT 142 mmol/L (135-145); ART PCO2 ISTAT 41 mmHg (35-45); ART PH ISTAT 7.37 (7.35-7.45); ART PO2 ISTAT 407 mmHg (75-100); ART SAT O2 SAT 100 % (95-99); ART TCO2 ISTAT 25 mmol/L (21-32); TOSPEC ART
[2016-09-26 14:03] LABS: ART BE ISTAT -13 mmol/L (0-3); ART GLUC ISTAT 62 mg/dL (70-99); ART HCO3 ISTAT 10 mmol/L (21-28); ART HCT ISTAT 24 % (37-52); ART HGB ISTAT 8.2 g/dL (14-18); ART ION CA ISTAT 0.91 mmol/L (1.13-1.32); ART K ISTAT 3.4 mmol/L (3.5-5.0); ART NA ISTAT 142 mmol/L (135-145); ART PCO2 ISTAT 14 mmHg (35-45); ART PH ISTAT 7.48 (7.35-7.45); ART PO2 ISTAT 236 mmHg (75-100); ART SAT O2 SAT 100 % (95-99); ART TCO2 ISTAT 11 mmol/L (21-32); TOSPEC ART
[2016-09-26 14:03] LABS: ART BE ISTAT -1 mmol/L (0-3); ART GLUC ISTAT 203 mg/dL (70-99); ART HCO3 ISTAT 24 mmol/L (21-28); ART HCT ISTAT 26 % (37-52); ART HGB ISTAT 8.8 g/dL (14-18); ART ION CA ISTAT 1.07 mmol/L (1.13-1.32); ART K ISTAT 5.2 mmol/L (3.5-5.0); ART NA ISTAT 133 mmol/L (135-145); ART PCO2 ISTAT 39 mmHg (35-45); ART PH ISTAT 7.39 (7.35-7.45); ART PO2 ISTAT 272 mmHg (75-100); ART SAT O2 SAT 100 % (95-99); ART TCO2 ISTAT 25 mmol/L (21-32); TOSPEC ART
--- NOTE | 2016-09-26 14:16 | RAD ---
Indication postop chest. Protocol study. A single view of the chest was obtained and is compared to a preoperative examination 09/22/2016. The patient is now postoperative. Heart and pulmonary vessels are within normal limits. There are no areas of significant atelectasis. No pneumothorax or unexpected finding is seen. [place] catheter has its tip in the proximal portion of the right pulmonary artery. Mediastinal and chest tubes are noted. Endotracheal tube is appropriately positioned above the [place]. IMPRESSION: Postop chest. No unexpected finding seen. Various support tubes and catheters appear appropriately positioned
[2016-09-26 14:34] LABS: BASE EXCESS COOX -1 mmol/L (-3-3); CARBON MONOXIDE 0.3 % (0.0-1.9); HCO3 COOX 23 mmol/L (21-28); METHEMOGLOBIN 0.3 % (0.0-1.9); OXYHEMOGLOBIN 98.6 %; PCO2 COOX 34 mmHg (35-46); PH COOX 7.44 (7.35-7.45); PO2 COOX 435 mmHg (75-108); SAT O2 COOX 99 % (92-99)
[2016-09-26 14:36] LABS: FIO2 COOX 100
--- NOTE | 2016-09-26 14:45 | PDOC ---
BRIEF OPERATIVE NOTE Date: September 26, 2016 Pre-Op Diagnosis Non-ST elevation myocardial infarction Coronary artery disease S/p PCI to the first diagonal coronary artery Hypertension Hyperlipidemia Alcohol dependency Post-Op Diagnosis Non-ST elevation myocardial infarction Coronary artery disease S/p PCI to the first diagonal coronary artery Hypertension Hyperlipidemia Alcohol dependency Procedure Performed Coronary artery bypass grafting (saphenous vein graft to the left anterior descending artery, saphenous vein graft to first diagonal coronary artery) Left endoscopic greater saphenous vein harvesting Surgeon Edwin Ferrera MD Flotation Tender Helper DESIREE Khan RNFA Anesthesia Type: General Blood Loss Cellsaver IV Fluid Cellsaver: 500 mls Crystalloid: 1500 mls Urine Output 475 mls Specimens Obtained None Findings 2mm LAD target 2mm D1 target Good sized conduits Complications Preoperative persistent hypotension with return of ventricular tachycardia, likely preoperative myocardial infarction or severe reaction to papaverine injection to dilate the mammary artery Additional Remarks Cardiopulmonary bypass time: 98 minutes x-clamp time: 67 minutes EDWIN FERRERA MD September 26, 2016 14:45
--- NOTE | 2016-09-26 14:46 | PDOC4 ---
Operative Note Operative Note Date September 26, 2016 Preoperative diagnosis Non-ST elevation myocardial infarction Coronary artery disease S/p PCI to the first diagonal coronary artery Hypertension Hyperlipidemia Alcohol dependency Postoperative diagnosis Non-ST elevation myocardial infarction Coronary artery disease S/p PCI to the first diagonal coronary artery Hypertension Hyperlipidemia Alcohol dependency Procedure Coronary artery bypass grafting (saphenous vein graft to the left anterior descending artery, saphenous vein graft to first diagonal coronary artery) Left endoscopic greater saphenous vein harvesting Surgeon Edwin Ferrera MD Digital Tech DESIREE Khan RNFA Anesthesia Type General Blood loss Cellsaver IV fluids Cellsaver: 500 mls Crystalloid: 1500 mls Urine output 475 mls Specimens None Findings 2mm LAD target 2mm D1 target Good sized conduits Complications Preoperative persistent hypotension with return of ventricular tachycardia, likely preoperative myocardial infarction or severe reaction to papaverine injection to dilate the mammary artery. Presumed to be any intraoperative MO, first the SOUTH was not used Additional Remarks Cardiopulmonary bypass time: 98 minutes x-clamp time: 67 minutes Indication The patient is a 51-year-old male who presented to [facility] after developing central chest pain which radiated to his neck and both upper extremities. The chest pain was severe and associated with diaphoresis, nausea and clamminess. He had some minor ST changes and a troponin bump. He has a history of a PCI to the left circumflex and the first diagonal in 2014. He reports that his symptoms were similar to those he had back in 2014. A coronary angiogram showed a proximal 80% LAD stenosis at the origin of the diagonal. An attempt at PCI was unsuccessful most likely because of diagonal stent protrusion into the LAD. He also has a subtotal occlusion of the diagonal stent. A CABG was indicated. The risks, benefits and limitations of the procedure were explained to the patient who agreed to proceed. Informed consent was obtained. Operation After appropriate identification the patient was brought to the operating room and placed supine on the operating table. Anesthesia was induced by the anesthesiologist and the airway was secured with an endotracheal tube. Monitoring lines were placed without difficulty. Antibiotics were delivered and the patient was preped and draped in the usual standard sterile surgical fashion. A timeout was then performed. A median sternotomy was performed and the internal mammary artery was harvested. Simultaneously the left greater saphenous vein was harvested endoscopically. [place] the SOUTH and the vein conduit were of good caliber. After the SOUTH was harvested and the patient was heparinized, he developed severe and persistent hypotension, with subsequent run of ventricular tachycardia. At that time I urgently opened the pericardium and internally shocked the heart was recovering sinus rhythm. Anesthesia then administered vasopressors and the pressure normalized. An immediate transesophageal echo was performed which showed that the anterior LV and septum were stunned and severely hypokinetic with an EF of 15%. It appears that this episode was secondary to intraoperative myocardial infarction or from a severe reaction to the papaverine. Considering that I wasn't sure what the cause was, I presumed it to be a MO and first decided not to use the mammary on to the LAD and instead harvested one more piece of left greater saphenous vein. Cardiopulmonary bypass was established through the ascending aorta and the right atrium. The patient was cooled to 33. Myocardial protection was achieved with antegrade blood cardioplegia. The cross-clamp was applied and diastolic arrest was achieved. Intermittent dosages of cardioplegia were given. Grafts: Saphenous vein graft to first diagonal coronary artery, end to side anastomosis with 7-0 Prolene. The vein was sewn just distal to the previously placed stent. 2 mm vessel. Saphenous vein graft to left anterior descending coronary artery, end to side anastomosis with 7-0 Prolene. 2 mm vessel. Two proximal anastomoses were performed using a running 5-0 Prolene suture. The cross-clamp was removed. The heart was allowed to rewarm and reperfuse. The grafts were de-aired. Atrial and ventricular pacing wires were placed. The patient recovered normal sinus rhythm. Hhe was from cardiopulmonary bypass with minimal epinephrine support. Heparin was reversed with protamine. An angled 32 Danish chest tube was placed in the left pleural space, a 32Fr angled in the posterior pericardium and a 32 straight in the anterior pericardium. Hemostasis was achieved and confirmed. The sternotomy was closed with #7 steel wires. The incision was closed with a layer of 0 Vicryl followed by 2-0 Vicryl and then 4-0 Monocryl for the epidermis. A sterile dressing was applied. The instrument, sponge and needle counts were correct. The patient was then transferred to the ICU in critical condition. The total cardiopulmonary bypass time was 98 minutes. The total cross-clamp time was 67 minutes. EDWIN FERRERA MD September 26, 2016 14:46
--- NOTE | 2016-09-26 14:49 | EKG ---
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
[2016-09-26 14:54] LABS: HEMATOCRIT 30.4 % (39.0-53.0); HEMOGLOBIN 10.1 g/dL (13.0-17.5); RED BLOOD COUNT 2.99 x10^6/uL (4.30-5.70); RED CELL DISTRIBUTION WIDTH 13.6 % (11.5-14.5); WHITE BLOOD COUNT 23.2 x10^3/uL (4.0-11.0)
[2016-09-26] MEDS: IV RINGERS,LACTATED 1000ML 1,000 ML IV SCH (15:02)
[2016-09-26 15:05] LABS: CREATININE 2.9 mg/dL (0.7-1.3); GFR 23.1; POTASSIUM 3.3 mmol/L (3.5-5.1)
[2016-09-26 15:09] LABS: CALCIUM 12.9 mg/dL (8.5-10.1)
[2016-09-26] MEDS ORDERED: SODIUM BICARB ADULT 8.4% 50 MEQ/50 ML DISP.SYRIN. IV ONE (15:15)
[2016-09-26] MEDS ORDERED: EPINEPHrine SYRINGE 1 MG/10 ML SYRINGE IV ONE (15:15)
[2016-09-26] MEDS: ALBUMIN HUMAN 5% 250 ML IV PRN ×2 (15:37→15:40)
[2016-09-26 16:41] LABS: HCO3 ABG 23 mmol/L (21-28); PCO2 ABG 36 mmHg (35-46); PH ABG 7.42 (7.35-7.45); PO2 ABG 134 mmHg (75-108); SAT O2 ABG 98 % (92-99)
[2016-09-26 16:43] LABS: FIO2 ABG 40
[2016-09-26] MEDS: POTASSIUM CHLORIDE 20MEQ 50 ML IV SCH ×3 (17:04→18:45)
[2016-09-26] MEDS: HYDROmorphone 2 MG/ML VIAL IV PRN ×2 (17:40→22:48)
[2016-09-26] MEDS: oxyCODONE/APAP 5/325 1 TAB TABLET PO PRN ×2 (18:25→22:48)
[2016-09-26] MEDS: MORPHINE SULFATE 2 MG/ML DISP.SYRIN. IV PRN ×3 (19:26→21:33)
[2016-09-26] MEDS: SENNOSIDES/DOCUSATE 8.6/50MG TABLET. PO SCH (20:31)
[2016-09-26] MEDS: METOPROLOL TART IMMED RELEASE 25 MG TABLET. PO SCH (20:32)
[2016-09-26] MEDS: LORazepam 1 MG TABLET PO PRN (20:41)
[2016-09-26] MEDS: ATORVASTATIN CALCIUM 40 MG TABLET. PO SCH (20:41)
[2016-09-26 20:56] LABS: HEMATOCRIT 29.3 % (39.0-53.0); HEMOGLOBIN 9.6 g/dL (13.0-17.5); RED BLOOD COUNT 2.82 x10^6/uL (4.30-5.70); RED CELL DISTRIBUTION WIDTH 13.8 % (11.5-14.5); WHITE BLOOD COUNT 21.9 x10^3/uL (4.0-11.0)
[2016-09-26] MEDS ORDERED: FAMOTIDINE 20 MG/2 ML VIAL IVP SCH (21:00)
[2016-09-26 21:42] LABS: MAGNESIUM 1.7 mg/dL (1.8-2.4); POTASSIUM 5.4 mmol/L (3.5-5.1)
[2016-09-26] MEDS: MAGNESIUM SULFATE 1GM 100 ML IV PRN (22:01)
[2016-09-27] VITALS (21 sets, daily range): BP systolic 86–118; BP diastolic 61–77
[2016-09-27] MEDS: MORPHINE SULFATE 2 MG/ML DISP.SYRIN. IV PRN ×3 (00:27→08:20)
[2016-09-27] MEDS: oxyCODONE/APAP 5/325 1 TAB TABLET PO PRN ×3 (03:03→20:53)
[2016-09-27] MEDS: HYDROmorphone 2 MG/ML VIAL IV PRN ×3 (03:04→16:24)
--- NOTE | 2016-09-27 03:39 | EKG ---
[facility] [address] [place] [address] Test Date: 2016-09-27 Test Time: 03:38:25 Pat Name: EZEKIEL BELLO Department: Room: 104 1 Gender: M Operations And Intelligence Assistant: : 1965 Requested By: AZAR GAMING Order Number: [id number] Reading MD: Dima Blackburn Measurements Intervals [place] Rate: 102 P: 36 [place]: 154 QRS: 24 QRSD: 82 T: 94 QT: 380 QTc: 500 Interpretive Statements SINUS TACHYCARDIA Electronically Signed On 09-28-2016 11:37:12 CDT by Dima Blackburn
[2016-09-27 05:35] LABS: CALCIUM 9.6 mg/dL (8.5-10.1); GFR 78.8; MAGNESIUM 1.7 mg/dL (1.8-2.4); POTASSIUM 5.1 mmol/L (3.5-5.1)
[2016-09-27 05:38] LABS: BASO # 0.1 x10^3/uL (0.0-0.2); BASO % 0 % (0-3); EOS % 0 % (0-3); HEMATOCRIT 27.7 % (39.0-53.0); HEMOGLOBIN 9.5 g/dL (13.0-17.5); LYMPH % 6 % (24-48); MEAN CORPUSCULAR HEMOGLOBIN 35 pg (25-35); MEAN CORPUSCULAR HGB CONC 34 g/dL (31-37); MEAN CORPUSCULAR VOLUME 101 fL (79-100); MONO % 8 % (0-9); NEUT % 86 % (31-73); PLATELET COUNT 135 x10^3/uL (140-400); RED BLOOD COUNT 2.74 x10^6/uL (4.30-5.70); RED CELL DISTRIBUTION WIDTH 13.7 % (11.5-14.5); WHITE BLOOD COUNT 17.8 x10^3/uL (4.0-11.0)
[2016-09-27 05:45] LABS: INR 1.2 (0.8-1.1); PROTHROMBIN TIME PATIENT 14.7 SEC (11.7-14.0)
[2016-09-27] MEDS: LORazepam 1 MG TABLET PO PRN (06:21)
[2016-09-27] MEDS: MAGNESIUM SULFATE 1GM 100 ML IV PRN (07:49)
[2016-09-27] MEDS: ASPIRIN ENTERIC COATED 325 MG TABLET.DR. PO SCH (08:00)
--- NOTE | 2016-09-27 08:29 | RAD ---
Indication postop. Protocol study. A single view of the chest was obtained and is compared to the initial postoperative study one day earlier. Endotracheal and Boston-Shabana catheter, seen previously, have been removed. Mediastinal and chest tubes remain. There is a right IJ catheter. There is some slight volume loss, probably reflecting atelectasis, at the left lung base. No pneumothorax is seen IMPRESSION: Mild volume loss, compatible with atelectasis, in a postoperative chest at the left lung base
[2016-09-27] MEDS ORDERED: METOPROLOL TART IMMED RELEASE 25 MG TABLET. PO SCH ×2 (09:00→21:00)
[2016-09-27] MEDS: SENNOSIDES/DOCUSATE 8.6/50MG TABLET. PO SCH ×2 (09:00→20:53)
[2016-09-27 09:09] LABS: PLT ESTIMATE ADEQUATE (ADEQUATE)
[2016-09-27] MEDS: FAMOTIDINE 20 MG TABLET. PO SCH ×2 (10:00→20:57)
--- NOTE | 2016-09-27 10:57 | PDOC ---
CARDIO Progress Notes Date and Time Date of Service 09/27/2016 Time of Evaluation 1055 Subjective Subjective: No shortness of breath, No Palpitations, Other (shoulders ache; pain with breathing) Vitals Vitals Vital Signs Date Time Temp Pulse Resp B/P Pulse Ox O2 Delivery O2 Flow Rate FiO2 09/27/16 09:00 94 96/68 98 Nasal Cannula 2.0 09/27/16 07:00 97.5 97.5 09/27/16 06:40 25 Weight Weight [ ] Input and Output Intake and Output Intake and Output 09/27/16 07:00 Intake Total 2988.4 ml Output Total 2709 ml Balance 279.4 ml Intake Oral 990 ml IV Total 548.4 ml Other 1450 ml Output Urine Total 2130 ml Chest Tube Drainage Total 579 ml Laboratory Labs Laboratory Tests Test 09/26/16 11:11 09/26/16 11:13 09/26/16 11:39 09/26/16 11:41 Bedside Hemoglobin (Calculated) 9.9g/dL (14-18) 9.5g/dL (14-18) Bedside Hematocrit 29% (37-52) 28% (37-52) Bedside Arterial pH 7.36 (7.35-7.45) 7.42 (7.35-7.45) Bedside Arterial pCO2 37mmHg (35-45) 40mmHg (35-45) Bedside Arterial pO2 340mmHg (75-100) 306mmHg (75-100) Bedside Arterial HCO3 21mmol/L (21-28) 26mmol/L (21-28) Bedside Arterial Total CO2 22mmol/L (21-32) 27mmol/L (21-32) Arterial Bld O2 Saturation (Measur) 100% (95-99) 100% (95-99) Bedside Arterial Blood Base Excess -4mmol/L (0-3) 1mmol/L (0-3) Bedside FiO2 75.0 70.0 Bedside Sodium 133mmol/L (135-145) 135mmol/L (135-145) Bedside Potassium 4.9mmol/L (3.5-5.0) 5.0mmol/L (3.5-5.0) Glucose Level 283mg/dL (70-99) 245mg/dL (70-99) Bedside Ionized Calcium (Carla) 1.03mmol/L (1.13-1.32) 1.04mmol/L (1.13-1.32) Activated Clotting Time 430SEC (90-125) 437SEC (90-125) Test 09/26/16 12:14 09/26/16 12:15 09/26/16 12:53 09/26/16 12:55 Bedside Hemoglobin (Calculated) 8.8g/dL (14-18) 8.5g/dL (14-18) Bedside Hematocrit 26% (37-52) 25% (37-52) Bedside Arterial pH 7.39 (7.35-7.45) 7.37 (7.35-7.45) Bedside Arterial pCO2 39mmHg (35-45) 41mmHg (35-45) Bedside Arterial pO2 272mmHg (75-100) 318mmHg (75-100) Bedside Arterial HCO3 24mmol/L (21-28) 24mmol/L (21-28) Bedside Arterial Total CO2 25mmol/L (21-32) 25mmol/L (21-32) Arterial Bld O2 Saturation (Measur) 100% (95-99) 100% (95-99) Bedside Arterial Blood Base Excess -1mmol/L (0-3) -2mmol/L (0-3) Bedside FiO2 75.0 100.0 Bedside Sodium 133mmol/L (135-145) 139mmol/L (135-145) Bedside Potassium 5.2mmol/L (3.5-5.0) 3.4mmol/L (3.5-5.0) Glucose Level 203mg/dL (70-99) 156mg/dL (70-99) Bedside Ionized Calcium (Carla) 1.07mmol/L (1.13-1.32) 1.72mmol/L (1.13-1.32) Activated Clotting Time 451SEC (90-125) 109SEC (90-125) Test 09/26/16 13:32 09/26/16 13:40 09/26/16 14:25 09/26/16 14:32 Bedside Hemoglobin (Calculated) 9.9g/dL (14-18) Bedside Hematocrit 29% (37-52) Bedside Arterial pH 7.37 (7.35-7.45) Bedside Arterial pCO2 41mmHg (35-45) Bedside Arterial pO2 407mmHg (75-100) Bedside Arterial HCO3 23mmol/L (21-28) Bedside Arterial Total CO2 25mmol/L (21-32) Arterial Bld O2 Saturation (Measur) 100% (95-99) Bedside Arterial Blood Base Excess -2mmol/L (0-3) Bedside FiO2 100.0 Bedside Sodium 142mmol/L (135-145) Bedside Potassium 3.5mmol/L (3.5-5.0) Glucose Level 134mg/dL (70-99) Bedside Ionized Calcium (Carla) 1.62mmol/L (1.13-1.32) White Blood Count 13.7x10^3/uL (4.0-11.0) Hemoglobin 9.8g/dL (13.0-17.5) Hematocrit 29.3% (39.0-53.0) Platelet Count 101x10^3/uL (140-400) Prothrombin Time 16.7SEC (11.7-14.0) Prothromb Time International Ratio 1.4 (0.8-1.1) Activated Partial Thromboplast Time 33SEC (24-38) Fibrinogen 246mg/dL (200-440) O2 Saturation 99% (92-99) Arterial Blood pH 7.44 (7.35-7.45) Arterial Blood pCO2 at Patient Temp 34mmHg (35-46) Arterial Blood pO2 at Patient Temp 435mmHg (75-108) Arterial Blood HCO3 23mmol/L (21-28) Arterial Blood Base Excess -1mmol/L (-3-3) Oxyhemoglobin 98.6% Methemoglobin 0.3% (0.0-1.9) Carbon Monoxide, Quantitative 0.3% (0.0-1.9) FiO2 100 Glucose (Fingerstick) 131mg/dL (70-99) Test 09/26/16 14:35 09/26/16 16:20 09/26/16 16:30 09/26/16 19:08 White Blood Count 23.2x10^3/uL (4.0-11.0) Red Blood Count 2.99x10^6/uL (4.30-5.70) Hemoglobin 10.1g/dL (13.0-17.5) Hematocrit 30.4% (39.0-53.0) Mean Corpuscular Volume 102fL (79-100) Mean Corpuscular Hemoglobin 34pg (25-35) Mean Corpuscular Hemoglobin Concent 33g/dL (31-37) Red Cell Distribution Width 13.6% (11.5-14.5) Platelet Count 131x10^3/uL (140-400) Sodium Level 142mmol/L (136-145) Potassium Level 3.3mmol/L (3.5-5.1) Chloride Level 111mmol/L (98-107) Carbon Dioxide Level 26mmol/L (21-32) Anion Gap 5 (6-14) Blood Urea Nitrogen 11mg/dL (8-26) Creatinine 2.9mg/dL (0.7-1.3) Estimated GFR (Cockcroft-Gault) 23.1 Glucose Level 145mg/dL (70-99) Calcium Level 12.9mg/dL (8.5-10.1) Magnesium Level 2.0mg/dL (1.8-2.4) Glucose (Fingerstick) 113mg/dL (70-99) 122mg/dL (70-99) O2 Saturation 98% (92-99) Arterial Blood pH 7.42 (7.35-7.45) Arterial Blood pCO2 at Patient Temp 36mmHg (35-46) Arterial Blood pO2 at Patient Temp 134mmHg (75-108) Arterial Blood HCO3 23mmol/L (21-28) Arterial Blood Base Excess -1mmol/L (-3-3) FiO2 40 Test 09/26/16 19:10 09/26/16 21:04 09/26/16 21:20 09/26/16 23:00 White Blood Count 21.9x10^3/uL (4.0-11.0) Red Blood Count 2.82x10^6/uL (4.30-5.70) Hemoglobin 9.6g/dL (13.0-17.5) Hematocrit 29.3% (39.0-53.0) Mean Corpuscular Volume 104fL (79-100) Mean Corpuscular Hemoglobin 34pg (25-35) Mean Corpuscular Hemoglobin Concent 33g/dL (31-37) Red Cell Distribution Width 13.8% (11.5-14.5) Platelet Count 134x10^3/uL (140-400) Glucose (Fingerstick) 131mg/dL (70-99) 145mg/dL (70-99) Potassium Level 5.4mmol/L (3.5-5.1) Magnesium Level 1.7mg/dL (1.8-2.4) Test 09/27/16 00:06 09/27/16 01:03 09/27/16 02:04 09/27/16 03:08 Glucose (Fingerstick) 134mg/dL (70-99) 132mg/dL (70-99) 116mg/dL (70-99) 134mg/dL (70-99) Test 09/27/16 04:11 09/27/16 05:00 09/27/16 05:10 09/27/16 06:08 Glucose (Fingerstick) 133mg/dL (70-99) 123mg/dL (70-99) 128mg/dL (70-99) White Blood Count 17.8x10^3/uL (4.0-11.0) Red Blood Count 2.74x10^6/uL (4.30-5.70) Hemoglobin 9.5g/dL (13.0-17.5) Hematocrit 27.7% (39.0-53.0) Mean Corpuscular Volume 101fL (79-100) Mean Corpuscular Hemoglobin 35pg (25-35) Mean Corpuscular Hemoglobin Concent 34g/dL (31-37) Red Cell Distribution Width 13.7% (11.5-14.5) Platelet Count 135x10^3/uL (140-400) Neutrophils (%) (Auto) 86% (31-73) Lymphocytes (%) (Auto) 6% (24-48) Monocytes (%) (Auto) 8% (0-9) Eosinophils (%) (Auto) 0% (0-3) Basophils (%) (Auto) 0% (0-3) Neutrophils # (Auto) 15.3x10^3uL (1.8-7.7) Lymphocytes # (Auto) 1.0x10^3/uL (1.0-4.8) Monocytes # (Auto) 1.4x10^3/uL (0.0-1.1) Eosinophils # (Auto) 0.0x10^3/uL (0.0-0.7) Basophils # (Auto) 0.1x10^3/uL (0.0-0.2) Segmented Neutrophils % 82% (35-66) Band Neutrophils % 5% (0-9) Lymphocytes % 6% (24-48) Monocytes % 7% (0-10) Platelet Estimate Adequate (ADEQUATE) Prothrombin Time 14.7SEC (11.7-14.0) Prothromb Time International Ratio 1.2 (0.8-1.1) Sodium Level 140mmol/L (136-145) Potassium Level 5.1mmol/L (3.5-5.1) Chloride Level 107mmol/L (98-107) Carbon Dioxide Level 27mmol/L (21-32) Anion Gap 6 (6-14) Blood Urea Nitrogen 14mg/dL (8-26) Creatinine 1.0mg/dL (0.7-1.3) Estimated GFR (Cockcroft-Gault) 78.8 Glucose Level 135mg/dL (70-99) Calcium Level 9.6mg/dL (8.5-10.1) Magnesium Level 1.7mg/dL (1.8-2.4) Test 09/27/16 07:28 Glucose (Fingerstick) 125mg/dL (70-99) Physical Exam HEENT: Neck Supple W Full Motion Chest: Symmetric, Other (mediastinal and pleural tubes; mediastinal chest dressing) LUNGS: Other (decreased in bases anteriorly) Heart: S1S2, RRR, no murmurs, other (tele: SR) Abdomen: Soft N/T Extremities: No Edema Neurology: alert, oriented, follow commands Assessment Assessment 1. NSTEMI 2 vessel CAD on cath CABG with SVG to LAD and SVG to D1 hypotension/VT with papaverine inj to SOUTH - harvest aborted fast track extubation management per CTS 2. HLD LDLs = 128 continue high dose statin therapy 3. substance abuse tobacco ETOH 4. hypomagnesemia being replaced 5. acute blood loss anemia, expected post-operative CABG AZAR GAMING PRINCIPAL TECHNICAL WRITER September 27, 2016 10:57
--- NOTE | 2016-09-27 12:37 | PDOC ---
PROGRESS NOTES Chief Complaint Chief Complaint cc: chest pain, sob prior [facility] CAD with prior PCI/stenting diabetes mellitus alcohol use disorder with withdrawal symptoms history of tobacco use History of Present Illness History of Present Illness Mr. Coyne was resting in bed when we visited with him. He is POD#1 from CABG. He complained of difficulty catching his breath. He has been extubated. D/w nurse about plan of care. Vitals Vitals Vital Signs Date Time Temp Pulse Resp B/P Pulse Ox O2 Delivery O2 Flow Rate FiO2 09/27/16 12:00 98.0 88 28 94/64 98 Nasal Cannula 2.0 98.0 Physical Exam General: Alert, Oriented X3, Cooperative, No acute distress Heart: Regular rate, Normal S1, Normal S2 Lungs: Clear, Other (negative accessory muscle use ) Abdomen: Soft, No tenderness Extremities: No clubbing, No cyanosis, No edema Skin: Other (surgical incision healing properly) Labs LABS Laboratory Tests Test 09/26/16 12:53 09/26/16 12:55 09/26/16 13:32 09/26/16 13:40 Bedside Hemoglobin (Calculated) 8.5g/dL (14-18) 9.9g/dL (14-18) Bedside Hematocrit 25% (37-52) 29% (37-52) Bedside Arterial pH 7.37 (7.35-7.45) 7.37 (7.35-7.45) Bedside Arterial pCO2 41mmHg (35-45) 41mmHg (35-45) Bedside Arterial pO2 318mmHg (75-100) 407mmHg (75-100) Bedside Arterial HCO3 24mmol/L (21-28) 23mmol/L (21-28) Bedside Arterial Total CO2 25mmol/L (21-32) 25mmol/L (21-32) Arterial Bld O2 Saturation (Measur) 100% (95-99) 100% (95-99) Bedside Arterial Blood Base Excess -2mmol/L (0-3) -2mmol/L (0-3) Bedside FiO2 100.0 100.0 Bedside Sodium 139mmol/L (135-145) 142mmol/L (135-145) Bedside Potassium 3.4mmol/L (3.5-5.0) 3.5mmol/L (3.5-5.0) Glucose Level 156mg/dL (70-99) 134mg/dL (70-99) Bedside Ionized Calcium (Carla) 1.72mmol/L (1.13-1.32) 1.62mmol/L (1.13-1.32) Activated Clotting Time 109SEC (90-125) White Blood Count 13.7x10^3/uL (4.0-11.0) Hemoglobin 9.8g/dL (13.0-17.5) Hematocrit 29.3% (39.0-53.0) Platelet Count 101x10^3/uL (140-400) Prothrombin Time 16.7SEC (11.7-14.0) Prothromb Time International Ratio 1.4 (0.8-1.1) Activated Partial Thromboplast Time 33SEC (24-38) Fibrinogen 246mg/dL (200-440) Test 09/26/16 14:25 09/26/16 14:32 09/26/16 14:35 09/26/16 16:20 O2 Saturation 99% (92-99) Arterial Blood pH 7.44 (7.35-7.45) Arterial Blood pCO2 at Patient Temp 34mmHg (35-46) Arterial Blood pO2 at Patient Temp 435mmHg (75-108) Arterial Blood HCO3 23mmol/L (21-28) Arterial Blood Base Excess -1mmol/L (-3-3) Oxyhemoglobin 98.6% Methemoglobin 0.3% (0.0-1.9) Carbon Monoxide, Quantitative 0.3% (0.0-1.9) FiO2 100 Glucose (Fingerstick) 131mg/dL (70-99) 113mg/dL (70-99) White Blood Count 23.2x10^3/uL (4.0-11.0) Red Blood Count 2.99x10^6/uL (4.30-5.70) Hemoglobin 10.1g/dL (13.0-17.5) Hematocrit 30.4% (39.0-53.0) Mean Corpuscular Volume 102fL (79-100) Mean Corpuscular Hemoglobin 34pg (25-35) Mean Corpuscular Hemoglobin Concent 33g/dL (31-37) Red Cell Distribution Width 13.6% (11.5-14.5) Platelet Count 131x10^3/uL (140-400) Sodium Level 142mmol/L (136-145) Potassium Level 3.3mmol/L (3.5-5.1) Chloride Level 111mmol/L (98-107) Carbon Dioxide Level 26mmol/L (21-32) Anion Gap 5 (6-14) Blood Urea Nitrogen 11mg/dL (8-26) Creatinine 2.9mg/dL (0.7-1.3) Estimated GFR (Cockcroft-Gault) 23.1 Glucose Level 145mg/dL (70-99) Calcium Level 12.9mg/dL (8.5-10.1) Magnesium Level 2.0mg/dL (1.8-2.4) Test 09/26/16 16:30 09/26/16 19:08 09/26/16 19:10 09/26/16 21:04 O2 Saturation 98% (92-99) Arterial Blood pH 7.42 (7.35-7.45) Arterial Blood pCO2 at Patient Temp 36mmHg (35-46) Arterial Blood pO2 at Patient Temp 134mmHg (75-108) Arterial Blood HCO3 23mmol/L (21-28) Arterial Blood Base Excess -1mmol/L (-3-3) FiO2 40 Glucose (Fingerstick) 122mg/dL (70-99) 131mg/dL (70-99) White Blood Count 21.9x10^3/uL (4.0-11.0) Red Blood Count 2.82x10^6/uL (4.30-5.70) Hemoglobin 9.6g/dL (13.0-17.5) Hematocrit 29.3% (39.0-53.0) Mean Corpuscular Volume 104fL (79-100) Mean Corpuscular Hemoglobin 34pg (25-35) Mean Corpuscular Hemoglobin Concent 33g/dL (31-37) Red Cell Distribution Width 13.8% (11.5-14.5) Platelet Count 134x10^3/uL (140-400) Test 09/26/16 21:20 09/26/16 23:00 09/27/16 00:06 09/27/16 01:03 Potassium Level 5.4mmol/L (3.5-5.1) Magnesium Level 1.7mg/dL (1.8-2.4) Glucose (Fingerstick) 145mg/dL (70-99) 134mg/dL (70-99) 132mg/dL (70-99) Test 09/27/16 02:04 09/27/16 03:08 09/27/16 04:11 09/27/16 05:00 Glucose (Fingerstick) 116mg/dL (70-99) 134mg/dL (70-99) 133mg/dL (70-99) White Blood Count 17.8x10^3/uL (4.0-11.0) Red Blood Count 2.74x10^6/uL (4.30-5.70) Hemoglobin 9.5g/dL (13.0-17.5) Hematocrit 27.7% (39.0-53.0) Mean Corpuscular Volume 101fL (79-100) Mean Corpuscular Hemoglobin 35pg (25-35) Mean Corpuscular Hemoglobin Concent 34g/dL (31-37) Red Cell Distribution Width 13.7% (11.5-14.5) Platelet Count 135x10^3/uL (140-400) Neutrophils (%) (Auto) 86% (31-73) Lymphocytes (%) (Auto) 6% (24-48) Monocytes (%) (Auto) 8% (0-9) Eosinophils (%) (Auto) 0% (0-3) Basophils (%) (Auto) 0% (0-3) Neutrophils # (Auto) 15.3x10^3uL (1.8-7.7) Lymphocytes # (Auto) 1.0x10^3/uL (1.0-4.8) Monocytes # (Auto) 1.4x10^3/uL (0.0-1.1) Eosinophils # (Auto) 0.0x10^3/uL (0.0-0.7) Basophils # (Auto) 0.1x10^3/uL (0.0-0.2) Segmented Neutrophils % 82% (35-66) Band Neutrophils % 5% (0-9) Lymphocytes % 6% (24-48) Monocytes % 7% (0-10) Platelet Estimate Adequate (ADEQUATE) Prothrombin Time 14.7SEC (11.7-14.0) Prothromb Time International Ratio 1.2 (0.8-1.1) Sodium Level 140mmol/L (136-145) Potassium Level 5.1mmol/L (3.5-5.1) Chloride Level 107mmol/L (98-107) Carbon Dioxide Level 27mmol/L (21-32) Anion Gap 6 (6-14) Blood Urea Nitrogen 14mg/dL (8-26) Creatinine 1.0mg/dL (0.7-1.3) Estimated GFR (Cockcroft-Gault) 78.8 Glucose Level 135mg/dL (70-99) Calcium Level 9.6mg/dL (8.5-10.1) Magnesium Level 1.7mg/dL (1.8-2.4) Test 09/27/16 05:10 09/27/16 06:08 09/27/16 07:28 Glucose (Fingerstick) 123mg/dL (70-99) 128mg/dL (70-99) 125mg/dL (70-99) Review of Systems Review of Systems General: complains of weakness Card: Denies chest pain Resp: complains of SOB Assessment and Plan Assessmemt and Plan Problems Medical Problems: (1) CAD (coronary artery disease) Status: Acute (2) NSTEMI (non-ST elevated myocardial infarction) Status: Acute Assessment: POD#1 CABG with SVG to LAD and 1st diagonal SOB prior [facility] CAD with prior PCI/stenting diabetes mellitus alcohol use disorder with withdrawal symptoms history of tobacco use Plan: -Monitor O2 sat as patient is on RA and complains of SOB -Monitor chest drains per CT surgery -Recheck AM labs -PT/OT as tolerated -Subspecialty input appreciated Problems: Comment Review of Relevant I have reviewed the following items mike (where applicable) has been applied. Labs Laboratory Tests Test 09/26/16 04:05 09/26/16 06:45 09/26/16 08:38 09/26/16 08:40 White Blood Count 8.7x10^3/uL (4.0-11.0) Red Blood Count 3.72x10^6/uL (4.30-5.70) Hemoglobin 12.9g/dL (13.0-17.5) Hematocrit 37.6% (39.0-53.0) Mean Corpuscular Volume 101fL (79-100) Mean Corpuscular Hemoglobin 35pg (25-35) Mean Corpuscular Hemoglobin Concent 34g/dL (31-37) Red Cell Distribution Width 13.3% (11.5-14.5) Platelet Count 200x10^3/uL (140-400) Neutrophils (%) (Auto) 56% (31-73) Lymphocytes (%) (Auto) 28% (24-48) Monocytes (%) (Auto) 10% (0-9) Eosinophils (%) (Auto) 5% (0-3) Basophils (%) (Auto) 1% (0-3) Neutrophils # (Auto) 4.9x10^3uL (1.8-7.7) Lymphocytes # (Auto) 2.4x10^3/uL (1.0-4.8) Monocytes # (Auto) 0.9x10^3/uL (0.0-1.1) Eosinophils # (Auto) 0.4x10^3/uL (0.0-0.7) Basophils # (Auto) 0.1x10^3/uL (0.0-0.2) Sodium Level 137mmol/L (136-145) Potassium Level 3.7mmol/L (3.5-5.1) Chloride Level 103mmol/L (98-107) Carbon Dioxide Level 26mmol/L (21-32) Anion Gap 8 (6-14) Blood Urea Nitrogen 11mg/dL (8-26) Creatinine 0.9mg/dL (0.7-1.3) Estimated GFR (Cockcroft-Gault) 89.0 Glucose Level 91mg/dL (70-99) 89mg/dL (70-99) Calcium Level 9.5mg/dL (8.5-10.1) Prothrombin Time 11.5SEC (11.7-14.0) Prothromb Time International Ratio 0.9 (0.8-1.1) Bedside Hemoglobin (Calculated) 10.2g/dL (14-18) Bedside Hematocrit 30% (37-52) Bedside Arterial pH 7.42 (7.35-7.45) Bedside Arterial pCO2 29mmHg (35-45) Bedside Arterial pO2 201mmHg (75-100) Bedside Arterial HCO3 19mmol/L (21-28) Bedside Arterial Total CO2 20mmol/L (21-32) Arterial Bld O2 Saturation (Measur) 100% (95-99) Bedside Arterial Blood Base Excess -6mmol/L (0-3) Bedside FiO2 100.0 Bedside Sodium 141mmol/L (135-145) Bedside Potassium 3.3mmol/L (3.5-5.0) Bedside Ionized Calcium (Carla) 1.15mmol/L (1.13-1.32) Activated Clotting Time 94SEC (90-125) Test 09/26/16 10:11 09/26/16 11:11 09/26/16 11:13 09/26/16 11:39 Bedside Hemoglobin (Calculated) 8.2g/dL (14-18) 9.9g/dL (14-18) 9.5g/dL (14-18) Bedside Hematocrit 24% (37-52) 29% (37-52) 28% (37-52) Bedside Arterial pH 7.48 (7.35-7.45) 7.36 (7.35-7.45) 7.42 (7.35-7.45) Bedside Arterial pCO2 14mmHg (35-45) 37mmHg (35-45) 40mmHg (35-45) Bedside Arterial pO2 236mmHg (75-100) 340mmHg (75-100) 306mmHg (75-100) Bedside Arterial HCO3 10mmol/L (21-28) 21mmol/L (21-28) 26mmol/L (21-28) Bedside Arterial Total CO2 11mmol/L (21-32) 22mmol/L (21-32) 27mmol/L (21-32) Arterial Bld O2 Saturation (Measur) 100% (95-99) 100% (95-99) 100% (95-99) Bedside Arterial Blood Base Excess -13mmol/L (0-3) -4mmol/L (0-3) 1mmol/L (0-3) Bedside FiO2 100.0 75.0 70.0 Bedside Sodium 142mmol/L (135-145) 133mmol/L (135-145) 135mmol/L (135-145) Bedside Potassium 3.4mmol/L (3.5-5.0) 4.9mmol/L (3.5-5.0) 5.0mmol/L (3.5-5.0) Glucose Level 62mg/dL (70-99) 283mg/dL (70-99) 245mg/dL (70-99) Bedside Ionized Calcium (Carla) 0.91mmol/L (1.13-1.32) 1.03mmol/L (1.13-1.32) 1.04mmol/L (1.13-1.32) Activated Clotting Time 430SEC (90-125) Test 09/26/16 11:41 09/26/16 12:14 09/26/16 12:15 09/26/16 12:53 Activated Clotting Time 437SEC (90-125) 451SEC (90-125) Bedside Hemoglobin (Calculated) 8.8g/dL (14-18) 8.5g/dL (14-18) Bedside Hematocrit 26% (37-52) 25% (37-52) Bedside Arterial pH 7.39 (7.35-7.45) 7.37 (7.35-7.45) Bedside Arterial pCO2 39mmHg (35-45) 41mmHg (35-45) Bedside Arterial pO2 272mmHg (75-100) 318mmHg (75-100) Bedside Arterial HCO3 24mmol/L (21-28) 24mmol/L (21-28) Bedside Arterial Total CO2 25mmol/L (21-32) 25mmol/L (21-32) Arterial Bld O2 Saturation (Measur) 100% (95-99) 100% (95-99) Bedside Arterial Blood Base Excess -1mmol/L (0-3) -2mmol/L (0-3) Bedside FiO2 75.0 100.0 Bedside Sodium 133mmol/L (135-145) 139mmol/L (135-145) Bedside Potassium 5.2mmol/L (3.5-5.0) 3.4mmol/L (3.5-5.0) Glucose Level 203mg/dL (70-99) 156mg/dL (70-99) Bedside Ionized Calcium (Carla) 1.07mmol/L (1.13-1.32) 1.72mmol/L (1.13-1.32) Test 09/26/16 12:55 09/26/16 13:32 09/26/16 13:40 09/26/16 14:25 Activated Clotting Time 109SEC (90-125) Bedside Hemoglobin (Calculated) 9.9g/dL (14-18) Bedside Hematocrit 29% (37-52) Bedside Arterial pH 7.37 (7.35-7.45) Bedside Arterial pCO2 41mmHg (35-45) Bedside Arterial pO2 407mmHg (75-100) Bedside Arterial HCO3 23mmol/L (21-28) Bedside Arterial Total CO2 25mmol/L (21-32) Arterial Bld O2 Saturation (Measur) 100% (95-99) Bedside Arterial Blood Base Excess -2mmol/L (0-3) Bedside FiO2 100.0 Bedside Sodium 142mmol/L (135-145) Bedside Potassium 3.5mmol/L (3.5-5.0) Glucose Level 134mg/dL (70-99) Bedside Ionized Calcium (Carla) 1.62mmol/L (1.13-1.32) White Blood Count 13.7x10^3/uL (4.0-11.0) Hemoglobin 9.8g/dL (13.0-17.5) Hematocrit 29.3% (39.0-53.0) Platelet Count 101x10^3/uL (140-400) Prothrombin Time 16.7SEC (11.7-14.0) Prothromb Time International Ratio 1.4 (0.8-1.1) Activated Partial Thromboplast Time 33SEC (24-38) Fibrinogen 246mg/dL (200-440) O2 Saturation 99% (92-99) Arterial Blood pH 7.44 (7.35-7.45) Arterial Blood pCO2 at Patient Temp 34mmHg (35-46) Arterial Blood pO2 at Patient Temp 435mmHg (75-108) Arterial Blood HCO3 23mmol/L (21-28) Arterial Blood Base Excess -1mmol/L (-3-3) Oxyhemoglobin 98.6% Methemoglobin 0.3% (0.0-1.9) Carbon Monoxide, Quantitative 0.3% (0.0-1.9) FiO2 100 Test 09/26/16 14:32 09/26/16 14:35 09/26/16 16:20 09/26/16 16:30 Glucose (Fingerstick) 131mg/dL (70-99) 113mg/dL (70-99) White Blood Count 23.2x10^3/uL (4.0-11.0) Red Blood Count 2.99x10^6/uL (4.30-5.70) Hemoglobin 10.1g/dL (13.0-17.5) Hematocrit 30.4% (39.0-53.0) Mean Corpuscular Volume 102fL (79-100) Mean Corpuscular Hemoglobin 34pg (25-35) Mean Corpuscular Hemoglobin Concent 33g/dL (31-37) Red Cell Distribution Width 13.6% (11.5-14.5) Platelet Count 131x10^3/uL (140-400) Sodium Level 142mmol/L (136-145) Potassium Level 3.3mmol/L (3.5-5.1) Chloride Level 111mmol/L (98-107) Carbon Dioxide Level 26mmol/L (21-32) Anion Gap 5 (6-14) Blood Urea Nitrogen 11mg/dL (8-26) Creatinine 2.9mg/dL (0.7-1.3) Estimated GFR (Cockcroft-Gault) 23.1 Glucose Level 145mg/dL (70-99) Calcium Level 12.9mg/dL (8.5-10.1) Magnesium Level 2.0mg/dL (1.8-2.4) O2 Saturation 98% (92-99) Arterial Blood pH 7.42 (7.35-7.45) Arterial Blood pCO2 at Patient Temp 36mmHg (35-46) Arterial Blood pO2 at Patient Temp 134mmHg (75-108) Arterial Blood HCO3 23mmol/L (21-28) Arterial Blood Base Excess -1mmol/L (-3-3) FiO2 40 Test 09/26/16 19:08 09/26/16 19:10 09/26/16 21:04 09/26/16 21:20 Glucose (Fingerstick) 122mg/dL (70-99) 131mg/dL (70-99) White Blood Count 21.9x10^3/uL (4.0-11.0) Red Blood Count 2.82x10^6/uL (4.30-5.70) Hemoglobin 9.6g/dL (13.0-17.5) Hematocrit 29.3% (39.0-53.0) Mean Corpuscular Volume 104fL (79-100) Mean Corpuscular Hemoglobin 34pg (25-35) Mean Corpuscular Hemoglobin Concent 33g/dL (31-37) Red Cell Distribution Width 13.8% (11.5-14.5) Platelet Count 134x10^3/uL (140-400) Potassium Level 5.4mmol/L (3.5-5.1) Magnesium Level 1.7mg/dL (1.8-2.4) Test 09/26/16 23:00 09/27/16 00:06 09/27/16 01:03 09/27/16 02:04 Glucose (Fingerstick) 145mg/dL (70-99) 134mg/dL (70-99) 132mg/dL (70-99) 116mg/dL (70-99) Test 09/27/16 03:08 09/27/16 04:11 09/27/16 05:00 09/27/16 05:10 Glucose (Fingerstick) 134mg/dL (70-99) 133mg/dL (70-99) 123mg/dL (70-99) White Blood Count 17.8x10^3/uL (4.0-11.0) Red Blood Count 2.74x10^6/uL (4.30-5.70) Hemoglobin 9.5g/dL (13.0-17.5) Hematocrit 27.7% (39.0-53.0) Mean Corpuscular Volume 101fL (79-100) Mean Corpuscular Hemoglobin 35pg (25-35) Mean Corpuscular Hemoglobin Concent 34g/dL (31-37) Red Cell Distribution Width 13.7% (11.5-14.5) Platelet Count 135x10^3/uL (140-400) Neutrophils (%) (Auto) 86% (31-73) Lymphocytes (%) (Auto) 6% (24-48) Monocytes (%) (Auto) 8% (0-9) Eosinophils (%) (Auto) 0% (0-3) Basophils (%) (Auto) 0% (0-3) Neutrophils # (Auto) 15.3x10^3uL (1.8-7.7) Lymphocytes # (Auto) 1.0x10^3/uL (1.0-4.8) Monocytes # (Auto) 1.4x10^3/uL (0.0-1.1) Eosinophils # (Auto) 0.0x10^3/uL (0.0-0.7) Basophils # (Auto) 0.1x10^3/uL (0.0-0.2) Segmented Neutrophils % 82% (35-66) Band Neutrophils % 5% (0-9) Lymphocytes % 6% (24-48) Monocytes % 7% (0-10) Platelet Estimate Adequate (ADEQUATE) Prothrombin Time 14.7SEC (11.7-14.0) Prothromb Time International Ratio 1.2 (0.8-1.1) Sodium Level 140mmol/L (136-145) Potassium Level 5.1mmol/L (3.5-5.1) Chloride Level 107mmol/L (98-107) Carbon Dioxide Level 27mmol/L (21-32) Anion Gap 6 (6-14) Blood Urea Nitrogen 14mg/dL (8-26) Creatinine 1.0mg/dL (0.7-1.3) Estimated GFR (Cockcroft-Gault) 78.8 Glucose Level 135mg/dL (70-99) Calcium Level 9.6mg/dL (8.5-10.1) Magnesium Level 1.7mg/dL (1.8-2.4) Test 09/27/16 06:08 09/27/16 07:28 Glucose (Fingerstick) 128mg/dL (70-99) 125mg/dL (70-99) Laboratory Tests Test 09/26/16 12:53 09/26/16 12:55 09/26/16 13:32 09/26/16 13:40 Bedside Hemoglobin (Calculated) 8.5g/dL (14-18) 9.9g/dL (14-18) Bedside Hematocrit 25% (37-52) 29% (37-52) Bedside Arterial pH 7.37 (7.35-7.45) 7.37 (7.35-7.45) Bedside Arterial pCO2 41mmHg (35-45) 41mmHg (35-45) Bedside Arterial pO2 318mmHg (75-100) 407mmHg (75-100) Bedside Arterial HCO3 24mmol/L (21-28) 23mmol/L (21-28) Bedside Arterial Total CO2 25mmol/L (21-32) 25mmol/L (21-32) Arterial Bld O2 Saturation (Measur) 100% (95-99) 100% (95-99) Bedside Arterial Blood Base Excess -2mmol/L (0-3) -2mmol/L (0-3) Bedside FiO2 100.0 100.0 Bedside Sodium 139mmol/L (135-145) 142mmol/L (135-145) Bedside Potassium 3.4mmol/L (3.5-5.0) 3.5mmol/L (3.5-5.0) Glucose Level 156mg/dL (70-99) 134mg/dL (70-99) Bedside Ionized Calcium (Carla) 1.72mmol/L (1.13-1.32) 1.62mmol/L (1.13-1.32) Activated Clotting Time 109SEC (90-125) White Blood Count 13.7x10^3/uL (4.0-11.0) Hemoglobin 9.8g/dL (13.0-17.5) Hematocrit 29.3% (39.0-53.0) Platelet Count 101x10^3/uL (140-400) Prothrombin Time 16.7SEC (11.7-14.0) Prothromb Time International Ratio 1.4 (0.8-1.1) Activated Partial Thromboplast Time 33SEC (24-38) Fibrinogen 246mg/dL (200-440) Test 09/26/16 14:25 09/26/16 14:32 09/26/16 14:35 09/26/16 16:20 O2 Saturation 99% (92-99) Arterial Blood pH 7.44 (7.35-7.45) Arterial Blood pCO2 at Patient Temp 34mmHg (35-46) Arterial Blood pO2 at Patient Temp 435mmHg (75-108) Arterial Blood HCO3 23mmol/L (21-28) Arterial Blood Base Excess -1mmol/L (-3-3) Oxyhemoglobin 98.6% Methemoglobin 0.3% (0.0-1.9) Carbon Monoxide, Quantitative 0.3% (0.0-1.9) FiO2 100 Glucose (Fingerstick) 131mg/dL (70-99) 113mg/dL (70-99) White Blood Count 23.2x10^3/uL (4.0-11.0) Red Blood Count 2.99x10^6/uL (4.30-5.70) Hemoglobin 10.1g/dL (13.0-17.5) Hematocrit 30.4% (39.0-53.0) Mean Corpuscular Volume 102fL (79-100) Mean Corpuscular Hemoglobin 34pg (25-35) Mean Corpuscular Hemoglobin Concent 33g/dL (31-37) Red Cell Distribution Width 13.6% (11.5-14.5) Platelet Count 131x10^3/uL (140-400) Sodium Level 142mmol/L (136-145) Potassium Level 3.3mmol/L (3.5-5.1) Chloride Level 111mmol/L (98-107) Carbon Dioxide Level 26mmol/L (21-32) Anion Gap 5 (6-14) Blood Urea Nitrogen 11mg/dL (8-26) Creatinine 2.9mg/dL (0.7-1.3) Estimated GFR (Cockcroft-Gault) 23.1 Glucose Level 145mg/dL (70-99) Calcium Level 12.9mg/dL (8.5-10.1) Magnesium Level 2.0mg/dL (1.8-2.4) Test 09/26/16 16:30 09/26/16 19:08 09/26/16 19:10 09/26/16 21:04 O2 Saturation 98% (92-99) Arterial Blood pH 7.42 (7.35-7.45) Arterial Blood pCO2 at Patient Temp 36mmHg (35-46) Arterial Blood pO2 at Patient Temp 134mmHg (75-108) Arterial Blood HCO3 23mmol/L (21-28) Arterial Blood Base Excess -1mmol/L (-3-3) FiO2 40 Glucose (Fingerstick) 122mg/dL (70-99) 131mg/dL (70-99) White Blood Count 21.9x10^3/uL (4.0-11.0) Red Blood Count 2.82x10^6/uL (4.30-5.70) Hemoglobin 9.6g/dL (13.0-17.5) Hematocrit 29.3% (39.0-53.0) Mean Corpuscular Volume 104fL (79-100) Mean Corpuscular Hemoglobin 34pg (25-35) Mean Corpuscular Hemoglobin Concent 33g/dL (31-37) Red Cell Distribution Width 13.8% (11.5-14.5) Platelet Count 134x10^3/uL (140-400) Test 09/26/16 21:20 09/26/16 23:00 09/27/16 00:06 09/27/16 01:03 Potassium Level 5.4mmol/L (3.5-5.1) Magnesium Level 1.7mg/dL (1.8-2.4) Glucose (Fingerstick) 145mg/dL (70-99) 134mg/dL (70-99) 132mg/dL (70-99) Test 09/27/16 02:04 09/27/16 03:08 09/27/16 04:11 09/27/16 05:00 Glucose (Fingerstick) 116mg/dL (70-99) 134mg/dL (70-99) 133mg/dL (70-99) White Blood Count 17.8x10^3/uL (4.0-11.0) Red Blood Count 2.74x10^6/uL (4.30-5.70) Hemoglobin 9.5g/dL (13.0-17.5) Hematocrit 27.7% (39.0-53.0) Mean Corpuscular Volume 101fL (79-100) Mean Corpuscular Hemoglobin 35pg (25-35) Mean Corpuscular Hemoglobin Concent 34g/dL (31-37) Red Cell Distribution Width 13.7% (11.5-14.5) Platelet Count 135x10^3/uL (140-400) Neutrophils (%) (Auto) 86% (31-73) Lymphocytes (%) (Auto) 6% (24-48) Monocytes (%) (Auto) 8% (0-9) Eosinophils (%) (Auto) 0% (0-3) Basophils (%) (Auto) 0% (0-3) Neutrophils # (Auto) 15.3x10^3uL (1.8-7.7) Lymphocytes # (Auto) 1.0x10^3/uL (1.0-4.8) Monocytes # (Auto) 1.4x10^3/uL (0.0-1.1) Eosinophils # (Auto) 0.0x10^3/uL (0.0-0.7) Basophils # (Auto) 0.1x10^3/uL (0.0-0.2) Segmented Neutrophils % 82% (35-66) Band Neutrophils % 5% (0-9) Lymphocytes % 6% (24-48) Monocytes % 7% (0-10) Platelet Estimate Adequate (ADEQUATE) Prothrombin Time 14.7SEC (11.7-14.0) Prothromb Time International Ratio 1.2 (0.8-1.1) Sodium Level 140mmol/L (136-145) Potassium Level 5.1mmol/L (3.5-5.1) Chloride Level 107mmol/L (98-107) Carbon Dioxide Level 27mmol/L (21-32) Anion Gap 6 (6-14) Blood Urea Nitrogen 14mg/dL (8-26) Creatinine 1.0mg/dL (0.7-1.3) Estimated GFR (Cockcroft-Gault) 78.8 Glucose Level 135mg/dL (70-99) Calcium Level 9.6mg/dL (8.5-10.1) Magnesium Level 1.7mg/dL (1.8-2.4) Test 09/27/16 05:10 09/27/16 06:08 09/27/16 07:28 Glucose (Fingerstick) 123mg/dL (70-99) 128mg/dL (70-99) 125mg/dL (70-99) Medications Current Medications Nitroglycerin (Nitrostat) 0.4 mg STK-MED ONCE SL ; Start 09/22/16 at 11:13; Stop 09/22/16 at 11:14; Status DC Aspirin (Children'S Aspirin) 324 mg 1X ONCE PO Last administered on 09/22/16t 11:15; Start 09/22/16 at 11:15; Stop 09/22/16 at 11:20; Status DC Morphine Sulfate 4 mg 4 mg PRN Q15MIN PRN IV/SQ PAIN GREATER THAN 3/10 Last administered on 09/22/16 13:16; Start 09/22/16 at 11:15; Stop 09/23/16 at 11:14 ; Status DC Sodium Chloride (Iv Sodium Chloride 0.9% 1000ml Bag) 1,000 ml @ 1,000 mls/hr Q1H IV Last administered on 09/22/16 11:33; Start 09/22/16 at 11:15; Stop at 12:14; Status DC Nitroglycerin (Nitrostat) 0.4 mg PRN Q5MIN PRN SL CHEST PAIN Last administered on 09/22/16 12:03; Start 09/22/16 at 11:15 Lorazepam (Ativan) 2 mg 1X ONCE IV Last administered on 09/22/16 11:47; Start 09/22/16 at 11:45; Stop 09/22/16 at 11:46; Status DC Ondansetron HCl (Zofran) 8 mg 1X ONCE IV Last administered on 09/22/16 11:47 ; Start 09/22/16 at 11:45; Stop 09/22/16 at 11:46; Status DC Nitroglycerin 1 inch 1 inch 1X ONCE TP Last administered on 09/22/16 12:08; Start 09/22/16 at 12:15; Stop 09/22/16 at 12:16; Status DC Sodium Chloride 1,000 ml @ 0 mls/hr Q0M IV ; Start 09/22/16 at 13:01; Stop at 13:00; Status DC Magnesium Sulfate/ Dextrose (Magnesium Sulfate PREMIX 2GM) 50 ml @ 25 mls/hr 1X ONCE IV Last administered on 09/22/16 13:17; Start 09/22/16 at 14:00; Stop 09/22/16 at 15:59; Status DC Atorvastatin Calcium (Lipitor) 80 mg QHS PO Last administered on 09/26/16 20:41 ; Start 09/22/16 at 21:00 Fentanyl Citrate (Fentanyl 2ml Vial) 100 mcg STK-MED ONCE .ROUTE ; Start at 13:06; Stop 09/22/16 at 13:07; Status DC Midazolam HCl (Versed) 2 mg STK-MED ONCE .ROUTE ; Start 09/22/16 at 13:06; Stop 09/22/16 at 13:07; Status DC Nitroglycerin (Nitroglycerin) 200 mcg STK-MED ONCE .ROUTE ; Start 09/22/16 at 13 :08; Stop 09/22/16 at 13:09; Status DC Verapamil HCl (Verapamil) 5 mg STK-MED ONCE .ROUTE ; Start 09/22/16 at 13:08; Stop 09/22/16 at 13:09; Status DC Heparin Sodium (Porcine) (Heparin Sodium) 10,000 unit STK-MED ONCE .ROUTE ; Start 09/22/16 at 13:08; Stop 09/22/16 at 13:09; Status DC Ondansetron HCl (Zofran) 4 mg PRN Q8HRS PRN IV NAUSEA/VOMITING; Start 09/22/16 at 13:30; Stop 09/23/16 at 13:29; Status DC Fentanyl Citrate (Fentanyl 2ml Vial) 50 mcg PRN Q2HR PRN IV PAIN; Start at 13:30; Stop 09/23/16 at 13:29; Status DC Iohexol 100 ml 100 ml STK-MED ONCE .ROUTE ; Start 09/22/16 at 13:30; Stop at 13:31; Status DC Heparin Sodium/ Sodium Chloride 1,000 ml @ As Directed STK-MED ONCE .ROUTE ; Start 09/22/16 at 13:30; Stop 09/22/16 at 13:31; Status DC Lidocaine HCl 20 ml 20 ml STK-MED ONCE .ROUTE ; Start 09/22/16 at 13:30; Stop at 13:31; Status DC Heparin Sodium/ Sodium Chloride 500 ml @ As Directed STK-MED ONCE .ROUTE ; Start 09/22/16 at 13:32; Stop 09/22/16 at 13:33; Status DC Tirofiban/Sodium Chloride (Aggrastat 12.5 Mg/250 ml Premix) 250 ml @ As Directed STK-MED ONCE IV ; Start 09/22/16 at 13:51; Stop 09/22/16 at 13:52; Status DC Nitroglycerin (Nitroglycerin) 200 mcg 1X ONCE IART Last administered on 15:13; Start 09/22/16 at 14:15; Stop 09/22/16 at 14:16; Status DC Verapamil HCl (Verapamil) 2.5 mg 1X ONCE IART Last administered on 09/22/16 15:15; Start 09/22/16 at 14:15; Stop 09/22/16 at 14:16; Status DC Heparin Sodium (Porcine) (Heparin Sodium) 2,500 unit 1X ONCE IART Last administered on 09/22/16 15:18; Start 09/22/16 at 14:15; Stop 09/22/16 at 14:16 ; Status DC Heparin Sodium/ Sodium Chloride 1,000 unit 1X ONCE IART Last administered on 15:16; Start 09/22/16 at 14:15; Stop 09/22/16 at 14:16; Status DC Heparin Sodium/ Sodium Chloride 1,000 unit 1X ONCE IART Last administered on 15:16; Start 09/22/16 at 14:15; Stop 09/22/16 at 14:16; Status DC Midazolam HCl (Versed) 2 mg 1X ONCE IV Last administered on 09/22/16 15:14; Start 09/22/16 at 14:15; Stop 09/22/16 at 14:16; Status DC Iohexol (Omnipaque 300 Mg/ml) 100 ml 1X ONCE IART Last administered on 15:15; Start 09/22/16 at 14:15; Stop 09/22/16 at 14:16; Status DC Heparin Sodium (Porcine) (Heparin Sodium) 4,000 unit 1X ONCE IV Last administered on 09/22/16 15:19; Start 09/22/16 at 14:15; Stop 09/22/16 at 14:16 ; Status DC Lidocaine HCl 20 ml 20 ml 1X ONCE IJ Last administered on 09/22/16 15:15; Start 09/22/16 at 14:15; Stop 09/22/16 at 14:16; Status DC Tirofiban/Sodium Chloride (Aggrastat 12.5 Mg/250 ml Premix) 250 ml @ 0 mls/hr CONT PRN IV PER PROTOCOL Last administered on 09/22/16 15:17; Start 09/22/16 at 13:57; Stop 09/23/16 at 07:56; Status DC Info (Do NOT chart on this entry -- for MONITORING) 1 each PRN DAILY PRN MC SEE COMMENTS; Start 09/22/16 at 14:30; Stop 09/24/16 at 14:29; Status DC Fentanyl Citrate (Fentanyl 2ml Vial) 50 mcg 1X ONCE IM ; Start 09/22/16 at 14: 30; Stop 09/22/16 at 14:31; Status Cancel Iohexol (Omnipaque 300 Mg/ml) 100 ml STK-MED ONCE .ROUTE ; Start 09/22/16 at 14: 34; Stop 09/22/16 at 14:35; Status DC Nitroglycerin 200 mcg 200 mcg 1X ONCE IART Last administered on 09/22/16 15: 13; Start 09/22/16 at 14:38; Stop 09/22/16 at 14:43; Status DC Nitroglycerin/ Dextrose 250 ml @ As Directed STK-MED ONCE IV ; Start 09/22/16 at 14:46; Stop 09/22/16 at 14:47; Status DC Nitroglycerin/ Dextrose 250 ml @ 0 mls/hr CONT PRN IV SEE I/O RECORD Last administered on 09/24/16 06:40; Start 09/22/16 at 15:00; Stop 09/25/16 at 22:10 ; Status DC Heparin Sodium/ Dextrose 500 ml @ 18 mls/hr CONT PRN IV SEE I/O RECORD Last administered on 09/25/16 09:49; Start 09/22/16 at 15:15; Stop 09/25/16 at 22:10 ; Status DC Heparin Sodium (Porcine) 1850 unit 1,850 unit PRN Q6HRS PRN IV FOR UFH LEVEL LESS THAN 0.2; Start 09/22/16 at 15:15; Stop 09/27/16 at 07:33; Status DC Heparin Sodium/ Dextrose 500 ml @ As Directed STK-MED ONCE IV ; Start 09/22/16 at 15:22; Stop 09/22/16 at 15:23; Status DC Fentanyl Citrate (Fentanyl 2ml Vial) 50 mcg 1X ONCE IV Last administered on 14:30; Start 09/22/16 at 14:30; Stop 09/22/16 at 16:14; Status DC Aspirin (Jocelyn Aspirin) 325 mg DAILYWBKFT PO Last administered on 09/25/16 08: 35; Start 09/23/16 at 08:00; Stop 09/27/16 at 09:09; Status DC Isosorbide Mononitrate (Imdur) 30 mg DAILY PO Last administered on 09/25/16 08 :35; Start 09/23/16 at 09:00; Stop 09/25/16 at 22:14; Status DC Metoprolol Tartrate (Lopressor) 12.5 mg BID PO Last administered on 09/25/16 22:28; Start 09/23/16 at 15:00; Stop 09/27/16 at 07:31; Status DC Ondansetron HCl (Zofran) 4 mg PRN Q6HRS PRN IV NAUSEA/VOMITING Last administered on 09/26/16 17:41; Start 09/26/16 at 07:00; Stop 09/27/16 at 06:59; Status DC Fentanyl Citrate (Fentanyl 2ml Vial) 25 mcg PRN Q5MIN PRN IV MILD PAIN; Start 09/26/16 at 07:00; Stop 09/27/16 at 06:59; Status DC Fentanyl Citrate (Fentanyl 2ml Vial) 50 mcg PRN Q5MIN PRN IV MODERATE PAIN; Start 09/26/16 at 07:00; Stop 09/27/16 at 06:59; Status DC Morphine Sulfate 1 mg 1 mg PRN Q10MIN PRN IV SEVERE PAIN; Start 09/26/16 at 07: 00; Stop 09/27/16 at 06:59; Status DC Lactated Ringer's (Iv Lactated Ringers) 1,000 ml @ 0 mls/hr Q0M IV Last administered on 09/26/16 07:23; Start 09/26/16 at 07:00; Stop 09/26/16 at 18:59; Status DC Lidocaine HCl 2 ml PRN 1X PRN ID PRIOR TO IV START; Start 09/26/16 at 07:00; Stop 09/27/16 at 06:59; Status DC Hydromorphone HCl (Dilaudid) 0.5 mg PRN Q10MIN PRN IV SEV PAIN, Second choice; Start 09/26/16 at 07:00; Stop 09/26/16 at 18:35; Status DC Prochlorperazine Edisylate (Compazine) 5 mg PACU PRN PRN IV NAUSEA, MRX1; Start 09/26/16 at 07:00; Stop 09/27/16 at 06:59; Status DC Info 1 each 1 each PRN DAILY PRN MC SEE COMMENTS; Start 09/23/16 at 15:15; Stop 09/27/16 at 07:33; Status DC Heparin Sodium (Porcine) 57006 unit/Lactated Ringer's 1,020 ml @ 1,020 mls/hr 1X PERIOP ONCE IRR Last administered on 09/26/16 09:00; Start 09/26/16 at 06:00 ; Stop 09/26/16 at 06:59; Status DC Potassium Chloride 70 meq/ Sodium Bicarbonate 12.5 meq/Lidocaine HCl 24 ml/ Parenteral Electrolytes 571.5 ml @ 571.5 mls/ hr 1X PERIOP ONCE IRR Last administered on 09/26/16 11:02; Start 09/26/16 at 06:00; Stop 09/26/16 at 06:59; Status DC Potassium Chloride/Sodium Bicarbonate/ Parenteral Electrolytes (Isolyte S) 520 ml @ 520 mls/hr 1X PERIOP ONCE IRR Last administered on 09/26/16 11:02; Start 09/26/16 at 06:00; Stop 09/26/16 at 06:59; Status DC Vancomycin HCl (Vanco) 10 gm 1X ONCE CEMENT Last administered on 09/26/16 09: 00; Start 09/26/16 at 06:00; Stop 09/26/16 at 06:01; Status DC Zolpidem Tartrate (Ambien) 10 mg HS PO ; Start 09/25/16 at 21:00; Stop 09/25/16 at 21:00; Status DC Lorazepam (Ativan) 1 mg PRN Q6HRS PRN PO ANXIETY / AGITATION Last administered on 09/27/16 06:21; Start 09/25/16 at 12:30 Zolpidem Tartrate (Ambien) 5 mg PRN QHS PRN PO INSOMNIA, MRP X1 IN 30 MIN; Start 09/25/16 at 12:30 Etomidate (Amidate) 20 mg STK-MED ONCE IV ; Start 09/25/16 at 21:28; Stop at 21:29; Status DC Phenylephrine HCl 10 mg 10 mg STK-MED ONCE .ROUTE ; Start 09/25/16 at 21:28; Stop 09/25/16 at 21:29; Status DC Propofol 0 ml @ As Directed STK-MED ONCE IV ; Start 09/25/16 at 21:28; Stop at 21:29; Status DC Nitroglycerin/ Dextrose (Nitroglycerin Drip) 250 ml @ As Directed STK-MED ONCE IV ; Start 09/25/16 at 21:28; Stop 09/25/16 at 21:29; Status DC Epinephrine HCl (Adrenalin) 1 mg STK-MED ONCE .ROUTE ; Start 09/25/16 at 21:28; Stop 09/25/16 at 21:29; Status DC Rocuronium [place] (Zemuron) 100 mg STK-MED ONCE .ROUTE ; Start 09/25/16 at 21: 28; Stop 09/25/16 at 21:29; Status DC Heparin Sodium (Porcine) 30,000 unit STK-MED ONCE .ROUTE ; Start 09/25/16 at 21: 29; Stop 09/25/16 at 21:30; Status DC Ephedrine Sulfate 50 mg STK-MED ONCE IV ; Start 09/25/16 at 21:29; Stop at 21:30; Status DC Aminocaproic Acid (Amicar) 5,000 mg STK-MED ONCE IV ; Start 09/25/16 at 21:29; Stop 09/25/16 at 21:30; Status DC Aminocaproic Acid (Amicar) 5,000 mg STK-MED ONCE IV ; Start 09/25/16 at 21:30; Stop 09/25/16 at 21:31; Status DC Isoflurane (Isoflurane) 90 ml STK-MED ONCE IH ; Start 09/25/16 at 21:47; Stop at 21:48; Status DC Aminocaproic Acid 5000 mg 5,000 mg STK-MED ONCE IV ; Start 09/25/16 at 21:57; Stop 09/25/16 at 21:58; Status DC Heparin Sodium/ Dextrose 500 ml @ 0 mls/hr CONT PRN IV SEE I/O RECORD; Start at 22:15; Stop 09/25/16 at 23:59; Status DC Nitroglycerin/ Dextrose 250 ml @ 0 mls/hr CONT PRN IV SEE I/O RECORD; Start at 22:15; Stop 09/26/16 at 02:00; Status DC Cefazolin Sodium/ Dextrose (Ancef 2gm Premix) 50 ml @ As Directed STK-MED ONCE IV ; Start 09/26/16 at 06:37; Stop 09/26/16 at 06:38; Status DC Midazolam HCl (Versed) 5 mg STK-MED ONCE .ROUTE ; Start 09/26/16 at 07:10; Stop 09/26/16 at 07:11; Status DC Sufentanil Citrate (Sufenta) 100 mcg STK-MED ONCE .ROUTE ; Start 09/26/16 at 07: 10; Stop 09/26/16 at 07:11; Status DC Vancomycin HCl (Vanco) 10 gm 1X ONCE CEMENT ; Start 09/26/16 at 07:15; Stop 09/26 at 07:16; Status Cancel Cellulose 1 each STK-MED ONCE .ROUTE Last administered on 09/26/16 09:00; Start 09/26/16 at 07:13; Stop 09/26/16 at 07:14; Status DC Papaverine HCl 60 mg STK-MED ONCE .ROUTE Last administered on 09/26/16 09:00; Start 09/26/16 at 07:13; Stop 09/26/16 at 07:14; Status DC Aspirin (Aspirin) 300 mg STK-MED ONCE .ROUTE Last administered on 09/26/16 13: 49; Start 09/26/16 at 07:13; Stop 09/26/16 at 07:14; Status DC Sodium Chloride 50 ml 50 ml STK-MED ONCE IJ Last administered on 09/26/16 09:00 ; Start 09/26/16 at 07:13; Stop 09/26/16 at 07:14; Status DC Cefazolin Sodium/ Sodium Chloride (Ancef/Iv Sodium Chloride 0.9% 500ml Bag) 500 ml @ 500 mls/hr 1X PERIOP ONCE IRR Last administered on 09/26/16 09:00; Start 09/26/16 at 08:00; Stop 09/26/16 at 08:59; Status DC Sufentanil Citrate (Sufenta) 100 mcg STK-MED ONCE .ROUTE ; Start 09/26/16 at 09: 21; Stop 09/26/16 at 09:22; Status DC Rocuronium [place] 50 mg 50 mg STK-MED ONCE .ROUTE ; Start 09/26/16 at 10:37; Stop 09/26/16 at 10:38; Status DC Insulin Human Regular/Sodium Chloride (Novolin R Vial/ Iv Normal Saline 150ml) 151.5 ml @ 7.33 mls/hr 1X ONCE IV Last administered on 09/26/16t 23:09; Start 09/26/16 at 11:30; Stop 09/27/16 at 08:10; Status DC Midazolam HCl (Versed) 2 mg STK-MED ONCE .ROUTE ; Start 09/26/16 at 12:14; Stop 09/26/16 at 12:15; Status DC Protamine Sulfate 50 mg STK-MED ONCE IV ; Start 09/26/16 at 12:22; Stop 09/26/16 at 12:23; Status DC Protamine Sulfate 250 mg STK-MED ONCE IV ; Start 09/26/16 at 12:22; Stop 09/26/16 at 12:23; Status DC Protamine Sulfate 50 mg STK-MED ONCE IV ; Start 09/26/16 at 12:23; Stop 09/26/16 at 12:24; Status DC Protamine Sulfate 250 mg STK-MED ONCE IV ; Start 09/26/16 at 12:23; Stop 09/26/16 at 12:24; Status DC Heparin Sodium (Porcine) (Heparin Sodium) 10,000 unit STK-MED ONCE .ROUTE ; Start 09/26/16 at 12:48; Stop 09/26/16 at 12:49; Status DC Lidocaine HCl (Lidocaine HCl 2% Abboject) 100 mg STK-MED ONCE .ROUTE ; Start 09/26/16 at 12:48; Stop 09/26/16 at 12:49; Status DC Mannitol (Mannitol) 12.5 g STK-MED ONCE .ROUTE ; Start 09/26/16 at 12:48; Stop at 12:49; Status DC Calcium Chloride 1,000 mg STK-MED ONCE IV ; Start 09/26/16 at 12:48; Stop at 12:49; Status DC Sodium Bicarbonate 50 meq 50 meq STK-MED ONCE .ROUTE ; Start 09/26/16 at 12:48; Stop 09/26/16 at 12:49; Status DC Albumin Human (Albuminar) 100 ml @ As Directed STK-MED ONCE IV ; Start 09/26/16 at 12:48; Stop 09/26/16 at 12:49; Status DC Heparin Sodium (Porcine) 68403 unit 30,000 unit STK-MED ONCE .ROUTE ; Start 09/26 at 12:48; Stop 09/26/16 at 12:49; Status DC Cefazolin Sodium/ Dextrose (Ancef 2gm Premix) 50 ml @ As Directed STK-MED ONCE IV ; Start 09/26/16 at 13:10; Stop 09/26/16 at 13:11; Status DC Sodium Chloride 3 ml 3 ml PRN Q12HR PRN IV AFTER MEDS AND BLOOD DRAWS; Start at 13:45 Lactated Ringer's 1,000 ml @ 30 mls/hr Q24H IV Last administered on 09/26/16 15:02; Start 09/26/16 at 13:40 Insulin Human Regular/Sodium Chloride (Novolin R Vial/ Iv Normal Saline 150ml) 151.5 ml @ 0 mls/hr CONT PRN PRN IV SEE I/O RECORD; Start 09/26/16 at 13:45 Dextrose (Dextrose 50%-Water Syringe) 25 gm PRN Q15MIN PRN IV LOW BLOOD SUGAR; Start 09/26/16 at 13:45 Info 1 ea CONT PRN PRN MC SEE COMMENTS; Start 09/26/16 at 13:45 Info 1 ea 1 ea CONT PRN PRN MC SEE COMMENTS; Start 09/26/16 at 13:45 Magnesium Sulfate/ Dextrose (Magnesium Sulfate PREMIX 1GM) 100 ml @ 100 mls/hr PRN DAILY PRN IV FOR MAG < 2.2 Last administered on 09/27/16 07:49; Start at 13:45 Famotidine (Pepcid) 20 mg BID IVP Last administered on 09/26/16 20:31; Start at 21:00; Stop 09/27/16 at 09:09; Status DC Ondansetron HCl (Zofran) 4 mg PRN Q4HRS PRN IV NAUSEA/VOMITING; Start 09/26/16 at 13:45 Metoclopramide HCl (Reglan) 10 mg PRN Q6HRS PRN IV NAUSEA/VOMITING; Start at 13:45 Morphine Sulfate 2 mg PRN Q1HR PRN IV PAIN Last administered on 09/27/16 08:20 ; Start 09/26/16 at 13:45; Stop 09/27/16 at 09:09; Status DC Acetaminophen (Tylenol) 650 mg PRN Q4HRS PRN PO MILD PAIN / TEMP; Start at 13:45 Acetaminophen (Acetaminophen Supp) 650 mg PRN Q4HRS PRN AL MILD PAIN / TEMP; Start 09/26/16 at 13:45 Meperidine HCl 12.5 mg 12.5 mg PRN Q15MIN PRN IV SHIVERING; Start 09/26/16 at 13 :45; Stop 09/27/16 at 09:09; Status DC Propofol (Diprivan) 100 ml @ 0 mls/hr CONT PRN PRN IV POSTOP SEDATION UNTIL EXTUBATE; Start 09/26/16 at 13:45; Stop 09/26/16 at 18:35; Status DC Senna/Docusate Sodium (Senna Plus) 1 tab BID PO Last administered on 09/27/16 09:00; Start 09/26/16 at 21:00 Bisacodyl (Dulcolax Supp) 10 mg PRN DAILY PRN AL NO BOWEL MOVEMENT; Start at 13:45 Aspirin (Ecotrin) 325 mg DAILYWBKFT PO Last administered on 09/27/16 08:00; Start 09/27/16 at 08:00 Metoprolol Tartrate 25 mg 25 mg BID PO ; Start 09/27/16 at 09:00 Clevidipine (Cleviprex) 100 ml @ 0 mls/hr CONT PRN IV PER PROTOCOL; Start at 13:45; Stop 09/27/16 at 09:09; Status DC Oxycodone/ Acetaminophen (Percocet 5/325) 1 tab PRN Q4HRS PRN PO MILD PAIN; Start 09/26/16 at 13:45 Oxycodone/ Acetaminophen 2 tab 2 tab PRN Q4HRS PRN PO MODERATE PAIN, SEVERE PAIN Last administered on 09/27/16 03:03; Start 09/26/16 at 13:45 Cefazolin Sodium 1 gm/Sodium Chloride 50 ml @ 100 mls/hr Q8H IV Last administered on 09/27/16 09:47; Start 09/26/16 at 16:30; Stop 09/28/16 at 00:59 Albumin Human 500 ml @ 125 mls/hr 1X ONCE IV ; Start 09/26/16 at 13:45; Stop at 14:07; Status DC Albumin Human 500 ml @ 125 mls/hr 1X PRN PRN IV CI<2.0 AND CVP<5; Start at 13:45; Status Cancel Albumin Human 500 ml @ 125 mls/hr 1X PRN PRN IV CI<2.0 AND CVP<5; Start at 13:45; Status Cancel Albumin Human 500 ml @ 125 mls/hr 1X PRN PRN IV CI<2.0 AND CVP<5; Start at 13:45; Status Cancel Albumin Human (Plasmanate) 500 ml @ 125 mls/hr 1X PRN PRN IV CI<2.0 AND CVP<5 ; Start 09/26/16 at 14:07; Status Cancel Sodium Bicarbonate 50 meq 1X ONCE IV Last administered on 09/26/16 15:32; Start 09/26/16 at 15:15; Stop 09/26/16 at 15:17; Status DC Epinephrine HCl (Epinephrine Syringe) 1 mg 1X ONCE IV Last administered on 09/26 15:33; Start 09/26/16 at 15:15; Stop 09/26/16 at 15:17; Status DC Calcium Chloride 1000 mg 1,000 mg 1X ONCE IV Last administered on 09/26/16 15: 34; Start 09/26/16 at 15:15; Stop 09/26/16 at 15:17; Status DC Epinephrine HCl 4 mg/Sodium Chloride 254 ml @ 0 mls/hr CONT PRN IV SEE I/O RECORD Last administered on 09/26/16 15:49; Start 09/26/16 at 15:30; Stop at 09:09; Status DC Albumin Human 250 ml @ 62.5 mls/hr CONT PRN IV SEE COMMENTS Last administered on 09/26/16 15:40; Start 09/26/16 at 15:30; Stop 09/27/16 at 09:09; Status DC Potassium Chloride (KCl Premix 20meq) 50 ml @ 0 mls/hr Q1H IV Last administered on 09/26/16 18:45; Start 09/26/16 at 16:45; Stop 09/26/16 at 18:46; Status DC Hydromorphone HCl (Dilaudid) 0.5 mg PRN Q4HRS PRN IV PAIN Last administered on 09/27/16 03:04; Start 09/26/16 at 17:30 Famotidine (Pepcid) 20 mg BID PO ; Start 09/27/16 at 10:00 Active Scripts Active NITROGLYCERIN SubLingual (Nitroglycerin) 0.4 Mg Tab.subl 1 Tab SL UD Isosorbide Mononitrate Er (Isosorbide Mononitrate) 30 Mg Tab.er.24h 1 Tab PO DAILY Reported Tamsulosin Hcl 0.4 Mg Cap.er.24h 0.4 Mg PO DAILY Lisinopril 10 Mg Tablet 1 Tab PO DAILY Atenolol 25 Mg Tablet 1 Tab PO DAILY Lo-Dose Aspirin EC (Aspirin) 81 Mg Tablet.dr 81 Mg PO Atorvastatin Calcium 80 Mg Tablet 40 Mg PO HS Vitals/I & O Vital Sign - Last 24 Hours 09/26/16 09/26/16 09/26/16 09/26/16 14:05 14:10 14:10 14:15 Temp 98.0 98.0 Pulse 98 B/P 0/0 Pulse Ox 100 O2 Delivery Ventilator Mechanical Ventilator 09/26/16 09/26/16 09/26/16 09/26/16 14:25 14:45 15:00 15:15 Pulse 125 120 99 100 B/P 166/107 131/81 124/52 103/66 09/26/16 09/26/16 09/26/16 09/26/16 15:30 15:45 15:50 16:00 Pulse 99 100 B/P 138/77 106/64 O2 Delivery Ventilator Nasal Cannula O2 Flow Rate 4.0 09/26/16 09/26/16 09/26/16 09/26/16 16:00 16:30 16:50 17:00 Pulse 105 104 B/P 126/68 106/93 O2 Delivery Nasal Cannula O2 Flow Rate 4.0 09/26/16 09/26/16 09/26/16 09/26/16 17:40 18:25 18:31 19:00 Pulse 104 Resp 17 B/P 99/61 Pulse Ox 100 96 98 O2 Delivery Room Air Nasal Cannula Nasal Cannula O2 Flow Rate 4.0 5.0 2.0 09/26/16 09/26/16 09/26/16 09/26/16 19:00 19:26 19:45 20:00 Temp 99.8 99.8 Pulse 104 102 Resp 23 B/P 99/61 91/69 Pulse Ox 96 96 O2 Delivery Nasal Cannula Nasal Cannula Nasal Cannula O2 Flow Rate 2.0 2.0 2.0 09/26/16 09/26/16 09/26/16 09/26/16 20:00 20:32 20:32 21:00 Temp 99.7 99.7 99.7 99.7 Pulse 102 104 98 Resp 20 B/P 91/69 100/67 93/65 Pulse Ox 96 96 94 O2 Delivery Nasal Cannula Nasal Cannula Nasal Cannula O2 Flow Rate 2.0 2.0 2.0 09/26/16 09/26/16 09/26/16 09/26/16 21:00 21:33 22:00 22:48 Temp 99.5 99.5 Pulse 98 100 Resp 16 B/P 93/65 94/68 Pulse Ox 95 95 96 O2 Delivery Nasal Cannula Nasal Cannula Nasal Cannula O2 Flow Rate 2.0 2.0 2.0 09/26/16 09/26/16 09/26/16 09/27/16 22:48 23:00 23:00 00:00 Temp 99.4 99.4 Pulse 96 96 97 Resp 16 11 B/P 90/60 Pulse Ox 96 93 O2 Delivery Nasal Cannula Nasal Cannula O2 Flow Rate 2.0 2.0 09/27/16 09/27/16 09/27/16 09/27/16 00:00 00:00 00:27 01:00 Temp 99.3 99.3 Pulse 97 Resp 16 B/P 91/63 Pulse Ox 94 95 94 O2 Delivery Nasal Cannula Nasal Cannula Nasal Cannula Nasal Cannula O2 Flow Rate 2.0 2.0 2.0 2.0 09/27/16 09/27/16 09/27/16 09/27/16 01:00 01:00 02:00 02:00 Temp 98.9 98.8 98.9 98.8 Pulse 99 99 96 96 Resp 16 16 B/P 92/68 96/69 Pulse Ox 94 95 O2 Delivery Nasal Cannula Nasal Cannula O2 Flow Rate 2.0 2.0 09/27/16 09/27/16 09/27/16 09/27/16 03:00 03:00 03:03 03:04 Pulse 93 93 Resp 18 25 25 B/P 106/68 Pulse Ox 93 95 95 O2 Delivery Nasal Cannula Nasal Cannula Nasal Cannula O2 Flow Rate 2.0 2.0 2.0 09/27/16 09/27/16 09/27/16 09/27/16 03:35 04:00 04:00 04:00 Temp 98.8 98.8 Pulse 94 94 Resp 21 21 B/P 90/61 Pulse Ox 95 94 O2 Delivery Nasal Cannula Nasal Cannula Nasal Cannula O2 Flow Rate 2.0 2.0 2.0 09/27/16 09/27/16 09/27/16 09/27/16 04:05 05:00 05:00 06:00 Temp 98.5 98.5 98.5 98.5 Pulse 98 98 88 Resp 21 20 10 B/P 95/64 86/62 Pulse Ox 94 95 94 O2 Delivery Nasal Cannula Nasal Cannula Nasal Cannula O2 Flow Rate 2.0 2.0 2.0 09/27/16 09/27/16 09/27/16 09/27/16 06:00 06:40 07:00 08:00 Temp 97.5 97.5 Pulse 88 88 90 Resp 25 B/P 104/71 96/61 Pulse Ox 97 95 84 O2 Delivery Nasal Cannula Nasal Cannula Nasal Cannula O2 Flow Rate 2.0 2.0 2.0 09/27/16 09/27/16 09/27/16 09/27/16 08:00 08:20 09:00 09:00 Pulse 94 B/P 96/68 96/68 Pulse Ox 97 98 O2 Delivery Nasal Cannula Nasal Cannula Nasal Cannula O2 Flow Rate 2.0 2.0 2.0 09/27/16 09/27/16 09/27/16 10:00 11:00 12:00 Temp 98.0 98.0 Pulse 100 86 88 Resp 22 28 B/P 113/77 110/74 94/64 Pulse Ox 97 97 98 O2 Delivery Nasal Cannula Nasal Cannula Nasal Cannula O2 Flow Rate 2.0 2.0 2.0 Intake and Output 09/26/16 09/26/16 09/27/16 15:00 23:00 07:00 Intake Total 0 ml 2010 ml 978.4 ml Output Total 470 ml 1669 ml 570 ml Balance -470 ml 341 ml 408.4 ml HAYDEE ERIC III DO September 27, 2016 12:37
[2016-09-27] MEDS ORDERED: FUROSEMIDE 20 MG/2 ML VIAL. IVP SCH (13:00)
[2016-09-27] MEDS: FUROSEMIDE 20 MG/2 ML VIAL. IVP SCH (13:40)
[2016-09-27] MEDS: IV RINGERS,LACTATED 1000ML 1,000 ML IV SCH (13:42)
--- NOTE | 2016-09-27 15:08 | PDOC ---
Progress Note Subjective Subjective Fast track extubation yesterday. Doing well this morning, out of bed to the chair. Normotensive and in sinus rhythm. Minimal drain output. Excellent UO throughout the night. CI>2.5 ROS ROS No nausea No SOB No vomiting No pain No rash Vital Sign Vital Signs Vital Signs Date Time Temp Pulse Resp B/P Pulse Ox O2 Delivery O2 Flow Rate FiO2 09/27/16 13:41 18 97 Nasal Cannula 2.0 09/27/16 12:00 98.0 88 94/64 98.0 Physical Exam PHYSICAL EXAM GENERAL: NAD, Alert HEENT: PERRL, OC/OP NECK: Supple, no JVD LUNGS: Clear HEART: S1S2, no gallop, no murmur, sternotomy: stable, dressing C/D/I ABD: Soft, NT, no organomegaly EXT: No edema PROCESSING TECHNOLOGIST: Alert, oriented x 3, no focal neurologic deficit SKIN: No rash IV: ok Labs Lab Laboratory Tests Test 09/26/16 16:20 09/26/16 16:30 09/26/16 19:08 09/26/16 19:10 Glucose (Fingerstick) 113mg/dL (70-99) 122mg/dL (70-99) O2 Saturation 98% (92-99) Arterial Blood pH 7.42 (7.35-7.45) Arterial Blood pCO2 at Patient Temp 36mmHg (35-46) Arterial Blood pO2 at Patient Temp 134mmHg (75-108) Arterial Blood HCO3 23mmol/L (21-28) Arterial Blood Base Excess -1mmol/L (-3-3) FiO2 40 White Blood Count 21.9x10^3/uL (4.0-11.0) Red Blood Count 2.82x10^6/uL (4.30-5.70) Hemoglobin 9.6g/dL (13.0-17.5) Hematocrit 29.3% (39.0-53.0) Mean Corpuscular Volume 104fL (79-100) Mean Corpuscular Hemoglobin 34pg (25-35) Mean Corpuscular Hemoglobin Concent 33g/dL (31-37) Red Cell Distribution Width 13.8% (11.5-14.5) Platelet Count 134x10^3/uL (140-400) Test 09/26/16 21:04 09/26/16 21:20 09/26/16 23:00 09/27/16 00:06 Glucose (Fingerstick) 131mg/dL (70-99) 145mg/dL (70-99) 134mg/dL (70-99) Potassium Level 5.4mmol/L (3.5-5.1) Magnesium Level 1.7mg/dL (1.8-2.4) Test 09/27/16 01:03 09/27/16 02:04 09/27/16 03:08 09/27/16 04:11 Glucose (Fingerstick) 132mg/dL (70-99) 116mg/dL (70-99) 134mg/dL (70-99) 133mg/dL (70-99) Test 09/27/16 05:00 09/27/16 05:10 09/27/16 06:08 09/27/16 07:28 White Blood Count 17.8x10^3/uL (4.0-11.0) Red Blood Count 2.74x10^6/uL (4.30-5.70) Hemoglobin 9.5g/dL (13.0-17.5) Hematocrit 27.7% (39.0-53.0) Mean Corpuscular Volume 101fL (79-100) Mean Corpuscular Hemoglobin 35pg (25-35) Mean Corpuscular Hemoglobin Concent 34g/dL (31-37) Red Cell Distribution Width 13.7% (11.5-14.5) Platelet Count 135x10^3/uL (140-400) Neutrophils (%) (Auto) 86% (31-73) Lymphocytes (%) (Auto) 6% (24-48) Monocytes (%) (Auto) 8% (0-9) Eosinophils (%) (Auto) 0% (0-3) Basophils (%) (Auto) 0% (0-3) Neutrophils # (Auto) 15.3x10^3uL (1.8-7.7) Lymphocytes # (Auto) 1.0x10^3/uL (1.0-4.8) Monocytes # (Auto) 1.4x10^3/uL (0.0-1.1) Eosinophils # (Auto) 0.0x10^3/uL (0.0-0.7) Basophils # (Auto) 0.1x10^3/uL (0.0-0.2) Segmented Neutrophils % 82% (35-66) Band Neutrophils % 5% (0-9) Lymphocytes % 6% (24-48) Monocytes % 7% (0-10) Platelet Estimate Adequate (ADEQUATE) Prothrombin Time 14.7SEC (11.7-14.0) Prothromb Time International Ratio 1.2 (0.8-1.1) Sodium Level 140mmol/L (136-145) Potassium Level 5.1mmol/L (3.5-5.1) Chloride Level 107mmol/L (98-107) Carbon Dioxide Level 27mmol/L (21-32) Anion Gap 6 (6-14) Blood Urea Nitrogen 14mg/dL (8-26) Creatinine 1.0mg/dL (0.7-1.3) Estimated GFR (Cockcroft-Gault) 78.8 Glucose Level 135mg/dL (70-99) Calcium Level 9.6mg/dL (8.5-10.1) Magnesium Level 1.7mg/dL (1.8-2.4) Glucose (Fingerstick) 123mg/dL (70-99) 128mg/dL (70-99) 125mg/dL (70-99) Objective Assessment POD#1, s/p CABG x2. Fast track extubation yesterday. Doing well this morning, out of bed to the chair. Normotensive and in sinus rhythm. Minimal drain output. Excellent UO throughout the night. CI>2.5. Mild anxiety, probably related to ETOH withrawal. Plan Plan of Care D/c [place]-Shabana D/c a-line D/c mediastinal drains Start diuresis with 20mg iv lasix twice daily ASA, statin Low dose b-alicja, 12.5mg metoprolol BID OK to have one beer with each meal EDWIN FERRERA MD September 27, 2016 15:08
[2016-09-27] MEDS: ATORVASTATIN CALCIUM 40 MG TABLET. PO SCH (20:52)
[2016-09-27] MEDS: METOPROLOL TART IMMED RELEASE 25 MG TABLET. PO SCH (20:54)
[2016-09-28] VITALS (15 sets, daily range): BP systolic 86–114; BP diastolic 47–68
[2016-09-28 06:07] LABS: CALCIUM 8.9 mg/dL (8.5-10.1); CREATININE 0.8 mg/dL (0.7-1.3); GFR 101.9; POTASSIUM 3.5 mmol/L (3.5-5.1)
[2016-09-28 06:09] LABS: BASO # 0.1 x10^3/uL (0.0-0.2); BASO % 1 % (0-3); EOS % 2 % (0-3); HEMATOCRIT 24.1 % (39.0-53.0); HEMOGLOBIN 8.3 g/dL (13.0-17.5); LYMPH # 1.7 x10^3/uL (1.0-4.8); LYMPH % 12 % (24-48); MEAN CORPUSCULAR HEMOGLOBIN 35 pg (25-35); MEAN CORPUSCULAR HGB CONC 35 g/dL (31-37); MEAN CORPUSCULAR VOLUME 100 fL (79-100); MONO % 8 % (0-9); NEUT % 78 % (31-73); PLATELET COUNT 105 x10^3/uL (140-400); RED BLOOD COUNT 2.41 x10^6/uL (4.30-5.70); RED CELL DISTRIBUTION WIDTH 13.6 % (11.5-14.5); WHITE BLOOD COUNT 13.8 x10^3/uL (4.0-11.0)
[2016-09-28] MEDS: POTASSIUM CHLORIDE 20MEQ 50 ML IV SCH ×2 (06:28→08:13)
[2016-09-28] MEDS: oxyCODONE/APAP 5/325 1 TAB TABLET PO PRN ×3 (08:13→17:12)
[2016-09-28] MEDS: METOPROLOL TART IMMED RELEASE 25 MG TABLET. PO SCH ×2 (08:14→20:22)
[2016-09-28] MEDS: SENNOSIDES/DOCUSATE 8.6/50MG TABLET. PO SCH ×2 (08:14→20:21)
[2016-09-28] MEDS: FUROSEMIDE 20 MG/2 ML VIAL. IVP SCH ×2 (08:14→13:58)
[2016-09-28] MEDS: ASPIRIN ENTERIC COATED 325 MG TABLET.DR. PO SCH (08:14)
[2016-09-28] MEDS: FAMOTIDINE 20 MG TABLET. PO SCH ×2 (08:14→20:21)
--- NOTE | 2016-09-28 08:46 | RAD ---
Portable chest, 09/28/2016: History: Shortness of breath postop Comparison is made to yesterday's study. The mediastinal drains have been removed. A left chest tube and a right jugular vascular sheath are unchanged in positions. The heart size and pulmonary vascularity are normal. There is minimal basilar atelectasis, predominantly on the left. The lungs are otherwise clear. No significant pneumothorax or pleural effusion is evident. IMPRESSION: Minimal postoperative basilar atelectasis.
[2016-09-28] MEDS: LORazepam 1 MG TABLET PO PRN ×2 (09:20→20:26)
--- NOTE | 2016-09-28 10:13 | PDOC ---
PROGRESS NOTES Chief Complaint Chief Complaint cc: chest pain, sob - NSTEMI prior [place] CAD with prior PCI/stenting diabetes mellitus alcohol use disorder with withdrawal symptoms history of tobacco use History of Present Illness History of Present Illness He is POD#2 from CABG. dyspnea yesterday is improved . He has been extubated. D/w nurse about plan of care. Vitals Vitals Vital Signs Date Time Temp Pulse Resp B/P Pulse Ox O2 Delivery O2 Flow Rate FiO2 09/28/16 09:20 15 95 Room Air 09/28/16 09:00 93 114/64 09/28/16 08:00 98.7 98.7 09/28/16 07:00 2.0 Physical Exam Physical Exam GENERAL: NAD, Alert HEENT: PERRL, OC/OP NECK: Supple, no JVD LUNGS: Clear HEART: S1S2, no gallop, no murmur, sternotomy: stable, dressing C/D/I ABD: Soft, NT, no organomegaly EXT: No edema MODULAR [employer]: Alert, oriented x 3, no focal neurologic deficit SKIN: No rash IV: ok General: Alert, Oriented X3, Cooperative, No acute distress Heart: Regular rate, Normal S1, Normal S2 Lungs: Clear, Other (negative accessory muscle use ) Abdomen: Soft, No tenderness Extremities: No clubbing, No cyanosis, No edema Skin: Other (surgical incision healing properly) Labs LABS Laboratory Tests Test 09/28/16 05:40 White Blood Count 13.8x10^3/uL (4.0-11.0) Red Blood Count 2.41x10^6/uL (4.30-5.70) Hemoglobin 8.3g/dL (13.0-17.5) Hematocrit 24.1% (39.0-53.0) Mean Corpuscular Volume 100fL (79-100) Mean Corpuscular Hemoglobin 35pg (25-35) Mean Corpuscular Hemoglobin Concent 35g/dL (31-37) Red Cell Distribution Width 13.6% (11.5-14.5) Platelet Count 105x10^3/uL (140-400) Neutrophils (%) (Auto) 78% (31-73) Lymphocytes (%) (Auto) 12% (24-48) Monocytes (%) (Auto) 8% (0-9) Eosinophils (%) (Auto) 2% (0-3) Basophils (%) (Auto) 1% (0-3) Neutrophils # (Auto) 10.7x10^3uL (1.8-7.7) Lymphocytes # (Auto) 1.7x10^3/uL (1.0-4.8) Monocytes # (Auto) 1.1x10^3/uL (0.0-1.1) Eosinophils # (Auto) 0.3x10^3/uL (0.0-0.7) Basophils # (Auto) 0.1x10^3/uL (0.0-0.2) Sodium Level 136mmol/L (136-145) Potassium Level 3.5mmol/L (3.5-5.1) Chloride Level 101mmol/L (98-107) Carbon Dioxide Level 32mmol/L (21-32) Anion Gap 3 (6-14) Blood Urea Nitrogen 14mg/dL (8-26) Creatinine 0.8mg/dL (0.7-1.3) Estimated GFR (Cockcroft-Gault) 101.9 Glucose Level 91mg/dL (70-99) Calcium Level 8.9mg/dL (8.5-10.1) Assessment and Plan Assessmemt and Plan Problems Medical Problems: (1) CAD (coronary artery disease) Status: Acute (2) NSTEMI (non-ST elevated myocardial infarction) Status: Acute Problems: Comment Review of Relevant I have reviewed the following items mike (where applicable) has been applied. Labs Laboratory Tests Test 09/26/16 10:11 09/26/16 11:11 09/26/16 11:13 09/26/16 11:39 Bedside Hemoglobin (Calculated) 8.2g/dL (14-18) 9.9g/dL (14-18) 9.5g/dL (14-18) Bedside Hematocrit 24% (37-52) 29% (37-52) 28% (37-52) Bedside Arterial pH 7.48 (7.35-7.45) 7.36 (7.35-7.45) 7.42 (7.35-7.45) Bedside Arterial pCO2 14mmHg (35-45) 37mmHg (35-45) 40mmHg (35-45) Bedside Arterial pO2 236mmHg (75-100) 340mmHg (75-100) 306mmHg (75-100) Bedside Arterial HCO3 10mmol/L (21-28) 21mmol/L (21-28) 26mmol/L (21-28) Bedside Arterial Total CO2 11mmol/L (21-32) 22mmol/L (21-32) 27mmol/L (21-32) Arterial Bld O2 Saturation (Measur) 100% (95-99) 100% (95-99) 100% (95-99) Bedside Arterial Blood Base Excess -13mmol/L (0-3) -4mmol/L (0-3) 1mmol/L (0-3) Bedside FiO2 100.0 75.0 70.0 Bedside Sodium 142mmol/L (135-145) 133mmol/L (135-145) 135mmol/L (135-145) Bedside Potassium 3.4mmol/L (3.5-5.0) 4.9mmol/L (3.5-5.0) 5.0mmol/L (3.5-5.0) Glucose Level 62mg/dL (70-99) 283mg/dL (70-99) 245mg/dL (70-99) Bedside Ionized Calcium (Carla) 0.91mmol/L (1.13-1.32) 1.03mmol/L (1.13-1.32) 1.04mmol/L (1.13-1.32) Activated Clotting Time 430SEC (90-125) Test 09/26/16 11:41 09/26/16 12:14 09/26/16 12:15 09/26/16 12:53 Activated Clotting Time 437SEC (90-125) 451SEC (90-125) Bedside Hemoglobin (Calculated) 8.8g/dL (14-18) 8.5g/dL (14-18) Bedside Hematocrit 26% (37-52) 25% (37-52) Bedside Arterial pH 7.39 (7.35-7.45) 7.37 (7.35-7.45) Bedside Arterial pCO2 39mmHg (35-45) 41mmHg (35-45) Bedside Arterial pO2 272mmHg (75-100) 318mmHg (75-100) Bedside Arterial HCO3 24mmol/L (21-28) 24mmol/L (21-28) Bedside Arterial Total CO2 25mmol/L (21-32) 25mmol/L (21-32) Arterial Bld O2 Saturation (Measur) 100% (95-99) 100% (95-99) Bedside Arterial Blood Base Excess -1mmol/L (0-3) -2mmol/L (0-3) Bedside FiO2 75.0 100.0 Bedside Sodium 133mmol/L (135-145) 139mmol/L (135-145) Bedside Potassium 5.2mmol/L (3.5-5.0) 3.4mmol/L (3.5-5.0) Glucose Level 203mg/dL (70-99) 156mg/dL (70-99) Bedside Ionized Calcium (Carla) 1.07mmol/L (1.13-1.32) 1.72mmol/L (1.13-1.32) Test 09/26/16 12:55 09/26/16 13:32 09/26/16 13:40 09/26/16 14:25 Activated Clotting Time 109SEC (90-125) Bedside Hemoglobin (Calculated) 9.9g/dL (14-18) Bedside Hematocrit 29% (37-52) Bedside Arterial pH 7.37 (7.35-7.45) Bedside Arterial pCO2 41mmHg (35-45) Bedside Arterial pO2 407mmHg (75-100) Bedside Arterial HCO3 23mmol/L (21-28) Bedside Arterial Total CO2 25mmol/L (21-32) Arterial Bld O2 Saturation (Measur) 100% (95-99) Bedside Arterial Blood Base Excess -2mmol/L (0-3) Bedside FiO2 100.0 Bedside Sodium 142mmol/L (135-145) Bedside Potassium 3.5mmol/L (3.5-5.0) Glucose Level 134mg/dL (70-99) Bedside Ionized Calcium (Carla) 1.62mmol/L (1.13-1.32) White Blood Count 13.7x10^3/uL (4.0-11.0) Hemoglobin 9.8g/dL (13.0-17.5) Hematocrit 29.3% (39.0-53.0) Platelet Count 101x10^3/uL (140-400) Prothrombin Time 16.7SEC (11.7-14.0) Prothromb Time International Ratio 1.4 (0.8-1.1) Activated Partial Thromboplast Time 33SEC (24-38) Fibrinogen 246mg/dL (200-440) O2 Saturation 99% (92-99) Arterial Blood pH 7.44 (7.35-7.45) Arterial Blood pCO2 at Patient Temp 34mmHg (35-46) Arterial Blood pO2 at Patient Temp 435mmHg (75-108) Arterial Blood HCO3 23mmol/L (21-28) Arterial Blood Base Excess -1mmol/L (-3-3) Oxyhemoglobin 98.6% Methemoglobin 0.3% (0.0-1.9) Carbon Monoxide, Quantitative 0.3% (0.0-1.9) FiO2 100 Test 09/26/16 14:32 09/26/16 14:35 09/26/16 16:20 09/26/16 16:30 Glucose (Fingerstick) 131mg/dL (70-99) 113mg/dL (70-99) White Blood Count 23.2x10^3/uL (4.0-11.0) Red Blood Count 2.99x10^6/uL (4.30-5.70) Hemoglobin 10.1g/dL (13.0-17.5) Hematocrit 30.4% (39.0-53.0) Mean Corpuscular Volume 102fL (79-100) Mean Corpuscular Hemoglobin 34pg (25-35) Mean Corpuscular Hemoglobin Concent 33g/dL (31-37) Red Cell Distribution Width 13.6% (11.5-14.5) Platelet Count 131x10^3/uL (140-400) Sodium Level 142mmol/L (136-145) Potassium Level 3.3mmol/L (3.5-5.1) Chloride Level 111mmol/L (98-107) Carbon Dioxide Level 26mmol/L (21-32) Anion Gap 5 (6-14) Blood Urea Nitrogen 11mg/dL (8-26) Creatinine 2.9mg/dL (0.7-1.3) Estimated GFR (Cockcroft-Gault) 23.1 Glucose Level 145mg/dL (70-99) Calcium Level 12.9mg/dL (8.5-10.1) Magnesium Level 2.0mg/dL (1.8-2.4) O2 Saturation 98% (92-99) Arterial Blood pH 7.42 (7.35-7.45) Arterial Blood pCO2 at Patient Temp 36mmHg (35-46) Arterial Blood pO2 at Patient Temp 134mmHg (75-108) Arterial Blood HCO3 23mmol/L (21-28) Arterial Blood Base Excess -1mmol/L (-3-3) FiO2 40 Test 09/26/16 19:08 09/26/16 19:10 09/26/16 21:04 09/26/16 21:20 Glucose (Fingerstick) 122mg/dL (70-99) 131mg/dL (70-99) White Blood Count 21.9x10^3/uL (4.0-11.0) Red Blood Count 2.82x10^6/uL (4.30-5.70) Hemoglobin 9.6g/dL (13.0-17.5) Hematocrit 29.3% (39.0-53.0) Mean Corpuscular Volume 104fL (79-100) Mean Corpuscular Hemoglobin 34pg (25-35) Mean Corpuscular Hemoglobin Concent 33g/dL (31-37) Red Cell Distribution Width 13.8% (11.5-14.5) Platelet Count 134x10^3/uL (140-400) Potassium Level 5.4mmol/L (3.5-5.1) Magnesium Level 1.7mg/dL (1.8-2.4) Test 09/26/16 23:00 09/27/16 00:06 09/27/16 01:03 09/27/16 02:04 Glucose (Fingerstick) 145mg/dL (70-99) 134mg/dL (70-99) 132mg/dL (70-99) 116mg/dL (70-99) Test 09/27/16 03:08 09/27/16 04:11 09/27/16 05:00 09/27/16 05:10 Glucose (Fingerstick) 134mg/dL (70-99) 133mg/dL (70-99) 123mg/dL (70-99) White Blood Count 17.8x10^3/uL (4.0-11.0) Red Blood Count 2.74x10^6/uL (4.30-5.70) Hemoglobin 9.5g/dL (13.0-17.5) Hematocrit 27.7% (39.0-53.0) Mean Corpuscular Volume 101fL (79-100) Mean Corpuscular Hemoglobin 35pg (25-35) Mean Corpuscular Hemoglobin Concent 34g/dL (31-37) Red Cell Distribution Width 13.7% (11.5-14.5) Platelet Count 135x10^3/uL (140-400) Neutrophils (%) (Auto) 86% (31-73) Lymphocytes (%) (Auto) 6% (24-48) Monocytes (%) (Auto) 8% (0-9) Eosinophils (%) (Auto) 0% (0-3) Basophils (%) (Auto) 0% (0-3) Neutrophils # (Auto) 15.3x10^3uL (1.8-7.7) Lymphocytes # (Auto) 1.0x10^3/uL (1.0-4.8) Monocytes # (Auto) 1.4x10^3/uL (0.0-1.1) Eosinophils # (Auto) 0.0x10^3/uL (0.0-0.7) Basophils # (Auto) 0.1x10^3/uL (0.0-0.2) Segmented Neutrophils % 82% (35-66) Band Neutrophils % 5% (0-9) Lymphocytes % 6% (24-48) Monocytes % 7% (0-10) Platelet Estimate Adequate (ADEQUATE) Prothrombin Time 14.7SEC (11.7-14.0) Prothromb Time International Ratio 1.2 (0.8-1.1) Sodium Level 140mmol/L (136-145) Potassium Level 5.1mmol/L (3.5-5.1) Chloride Level 107mmol/L (98-107) Carbon Dioxide Level 27mmol/L (21-32) Anion Gap 6 (6-14) Blood Urea Nitrogen 14mg/dL (8-26) Creatinine 1.0mg/dL (0.7-1.3) Estimated GFR (Cockcroft-Gault) 78.8 Glucose Level 135mg/dL (70-99) Calcium Level 9.6mg/dL (8.5-10.1) Magnesium Level 1.7mg/dL (1.8-2.4) Test 09/27/16 06:08 09/27/16 07:28 09/28/16 05:40 Glucose (Fingerstick) 128mg/dL (70-99) 125mg/dL (70-99) White Blood Count 13.8x10^3/uL (4.0-11.0) Red Blood Count 2.41x10^6/uL (4.30-5.70) Hemoglobin 8.3g/dL (13.0-17.5) Hematocrit 24.1% (39.0-53.0) Mean Corpuscular Volume 100fL (79-100) Mean Corpuscular Hemoglobin 35pg (25-35) Mean Corpuscular Hemoglobin Concent 35g/dL (31-37) Red Cell Distribution Width 13.6% (11.5-14.5) Platelet Count 105x10^3/uL (140-400) Neutrophils (%) (Auto) 78% (31-73) Lymphocytes (%) (Auto) 12% (24-48) Monocytes (%) (Auto) 8% (0-9) Eosinophils (%) (Auto) 2% (0-3) Basophils (%) (Auto) 1% (0-3) Neutrophils # (Auto) 10.7x10^3uL (1.8-7.7) Lymphocytes # (Auto) 1.7x10^3/uL (1.0-4.8) Monocytes # (Auto) 1.1x10^3/uL (0.0-1.1) Eosinophils # (Auto) 0.3x10^3/uL (0.0-0.7) Basophils # (Auto) 0.1x10^3/uL (0.0-0.2) Sodium Level 136mmol/L (136-145) Potassium Level 3.5mmol/L (3.5-5.1) Chloride Level 101mmol/L (98-107) Carbon Dioxide Level 32mmol/L (21-32) Anion Gap 3 (6-14) Blood Urea Nitrogen 14mg/dL (8-26) Creatinine 0.8mg/dL (0.7-1.3) Estimated GFR (Cockcroft-Gault) 101.9 Glucose Level 91mg/dL (70-99) Calcium Level 8.9mg/dL (8.5-10.1) Laboratory Tests Test 09/28/16 05:40 White Blood Count 13.8x10^3/uL (4.0-11.0) Red Blood Count 2.41x10^6/uL (4.30-5.70) Hemoglobin 8.3g/dL (13.0-17.5) Hematocrit 24.1% (39.0-53.0) Mean Corpuscular Volume 100fL (79-100) Mean Corpuscular Hemoglobin 35pg (25-35) Mean Corpuscular Hemoglobin Concent 35g/dL (31-37) Red Cell Distribution Width 13.6% (11.5-14.5) Platelet Count 105x10^3/uL (140-400) Neutrophils (%) (Auto) 78% (31-73) Lymphocytes (%) (Auto) 12% (24-48) Monocytes (%) (Auto) 8% (0-9) Eosinophils (%) (Auto) 2% (0-3) Basophils (%) (Auto) 1% (0-3) Neutrophils # (Auto) 10.7x10^3uL (1.8-7.7) Lymphocytes # (Auto) 1.7x10^3/uL (1.0-4.8) Monocytes # (Auto) 1.1x10^3/uL (0.0-1.1) Eosinophils # (Auto) 0.3x10^3/uL (0.0-0.7) Basophils # (Auto) 0.1x10^3/uL (0.0-0.2) Sodium Level 136mmol/L (136-145) Potassium Level 3.5mmol/L (3.5-5.1) Chloride Level 101mmol/L (98-107) Carbon Dioxide Level 32mmol/L (21-32) Anion Gap 3 (6-14) Blood Urea Nitrogen 14mg/dL (8-26) Creatinine 0.8mg/dL (0.7-1.3) Estimated GFR (Cockcroft-Gault) 101.9 Glucose Level 91mg/dL (70-99) Calcium Level 8.9mg/dL (8.5-10.1) Medications Current Medications Nitroglycerin (Nitrostat) 0.4 mg STK-MED ONCE SL ; Start 09/22/16 at 11:13; Stop 09/22/16 at 11:14; Status DC Aspirin (Children'S Aspirin) 324 mg 1X ONCE PO Last administered on 09/22/16 11:15; Start 09/22/16 at 11:15; Stop 09/22/16 at 11:20; Status DC Morphine Sulfate 4 mg 4 mg PRN Q15MIN PRN IV/SQ PAIN GREATER THAN 3/10 Last administered on 09/22/16 13:16; Start 09/22/16 at 11:15; Stop 09/23/16 at 11:14 ; Status DC Sodium Chloride (Iv Sodium Chloride 0.9% 1000ml Bag) 1,000 ml @ 1,000 mls/hr Q1H IV Last administered on 09/22/16 11:33; Start 09/22/16 at 11:15; Stop at 12:14; Status DC Nitroglycerin (Nitrostat) 0.4 mg PRN Q5MIN PRN SL CHEST PAIN Last administered on 09/22/16 12:03; Start 09/22/16 at 11:15 Lorazepam (Ativan) 2 mg 1X ONCE IV Last administered on 09/22/16 11:47; Start 09/22/16 at 11:45; Stop 09/22/16 at 11:46; Status DC Ondansetron HCl (Zofran) 8 mg 1X ONCE IV Last administered on 09/22/16 11:47 ; Start 09/22/16 at 11:45; Stop 09/22/16 at 11:46; Status DC Nitroglycerin 1 inch 1 inch 1X ONCE TP Last administered on 09/22/16 12:08; Start 09/22/16 at 12:15; Stop 09/22/16 at 12:16; Status DC Sodium Chloride 1,000 ml @ 0 mls/hr Q0M IV ; Start 09/22/16 at 13:01; Stop at 13:00; Status DC Magnesium Sulfate/ Dextrose (Magnesium Sulfate PREMIX 2GM) 50 ml @ 25 mls/hr 1X ONCE IV Last administered on 09/22/16 13:17; Start 09/22/16 at 14:00; Stop 09/22/16 at 15:59; Status DC Atorvastatin Calcium (Lipitor) 80 mg QHS PO Last administered on 09/27/16t 20:52 ; Start 09/22/16 at 21:00 Fentanyl Citrate (Fentanyl 2ml Vial) 100 mcg STK-MED ONCE .ROUTE ; Start at 13:06; Stop 09/22/16 at 13:07; Status DC Midazolam HCl (Versed) 2 mg STK-MED ONCE .ROUTE ; Start 09/22/16 at 13:06; Stop 09/22/16 at 13:07; Status DC Nitroglycerin (Nitroglycerin) 200 mcg STK-MED ONCE .ROUTE ; Start 09/22/16 at 13 :08; Stop 09/22/16 at 13:09; Status DC Verapamil HCl (Verapamil) 5 mg STK-MED ONCE .ROUTE ; Start 09/22/16 at 13:08; Stop 09/22/16 at 13:09; Status DC Heparin Sodium (Porcine) (Heparin Sodium) 10,000 unit STK-MED ONCE .ROUTE ; Start 09/22/16 at 13:08; Stop 09/22/16 at 13:09; Status DC Ondansetron HCl (Zofran) 4 mg PRN Q8HRS PRN IV NAUSEA/VOMITING; Start 09/22/16 at 13:30; Stop 09/23/16 at 13:29; Status DC Fentanyl Citrate (Fentanyl 2ml Vial) 50 mcg PRN Q2HR PRN IV PAIN; Start at 13:30; Stop 09/23/16 at 13:29; Status DC Iohexol 100 ml 100 ml STK-MED ONCE .ROUTE ; Start 09/22/16 at 13:30; Stop at 13:31; Status DC Heparin Sodium/ Sodium Chloride 1,000 ml @ As Directed STK-MED ONCE .ROUTE ; Start 09/22/16 at 13:30; Stop 09/22/16 at 13:31; Status DC Lidocaine HCl 20 ml 20 ml STK-MED ONCE .ROUTE ; Start 09/22/16 at 13:30; Stop at 13:31; Status DC Heparin Sodium/ Sodium Chloride 500 ml @ As Directed STK-MED ONCE .ROUTE ; Start 09/22/16 at 13:32; Stop 09/22/16 at 13:33; Status DC Tirofiban/Sodium Chloride (Aggrastat 12.5 Mg/250 ml Premix) 250 ml @ As Directed STK-MED ONCE IV ; Start 09/22/16 at 13:51; Stop 09/22/16 at 13:52; Status DC Nitroglycerin (Nitroglycerin) 200 mcg 1X ONCE IART Last administered on 15:13; Start 09/22/16 at 14:15; Stop 09/22/16 at 14:16; Status DC Verapamil HCl (Verapamil) 2.5 mg 1X ONCE IART Last administered on 09/22/16 15:15; Start 09/22/16 at 14:15; Stop 09/22/16 at 14:16; Status DC Heparin Sodium (Porcine) (Heparin Sodium) 2,500 unit 1X ONCE IART Last administered on 09/22/16 15:18; Start 09/22/16 at 14:15; Stop 09/22/16 at 14:16 ; Status DC Heparin Sodium/ Sodium Chloride 1,000 unit 1X ONCE IART Last administered on 15:16; Start 09/22/16 at 14:15; Stop 09/22/16 at 14:16; Status DC Heparin Sodium/ Sodium Chloride 1,000 unit 1X ONCE IART Last administered on 15:16; Start 09/22/16 at 14:15; Stop 09/22/16 at 14:16; Status DC Midazolam HCl (Versed) 2 mg 1X ONCE IV Last administered on 09/22/16 15:14; Start 09/22/16 at 14:15; Stop 09/22/16 at 14:16; Status DC Iohexol (Omnipaque 300 Mg/ml) 100 ml 1X ONCE IART Last administered on 15:15; Start 09/22/16 at 14:15; Stop 09/22/16 at 14:16; Status DC Heparin Sodium (Porcine) (Heparin Sodium) 4,000 unit 1X ONCE IV Last administered on 09/22/16 15:19; Start 09/22/16 at 14:15; Stop 09/22/16 at 14:16 ; Status DC Lidocaine HCl 20 ml 20 ml 1X ONCE IJ Last administered on 09/22/16 15:15; Start 09/22/16 at 14:15; Stop 09/22/16 at 14:16; Status DC Tirofiban/Sodium Chloride (Aggrastat 12.5 Mg/250 ml Premix) 250 ml @ 0 mls/hr CONT PRN IV PER PROTOCOL Last administered on 09/22/16 15:17; Start 09/22/16 at 13:57; Stop 09/23/16 at 07:56; Status DC Info (Do NOT chart on this entry -- for MONITORING) 1 each PRN DAILY PRN MC SEE COMMENTS; Start 09/22/16 at 14:30; Stop 09/24/16 at 14:29; Status DC Fentanyl Citrate (Fentanyl 2ml Vial) 50 mcg 1X ONCE IM ; Start 09/22/16 at 14: 30; Stop 09/22/16 at 14:31; Status Cancel Iohexol (Omnipaque 300 Mg/ml) 100 ml STK-MED ONCE .ROUTE ; Start 09/22/16 at 14: 34; Stop 09/22/16 at 14:35; Status DC Nitroglycerin 200 mcg 200 mcg 1X ONCE IART Last administered on 09/22/16 15: 13; Start 09/22/16 at 14:38; Stop 09/22/16 at 14:43; Status DC Nitroglycerin/ Dextrose 250 ml @ As Directed STK-MED ONCE IV ; Start 09/22/16 at 14:46; Stop 09/22/16 at 14:47; Status DC Nitroglycerin/ Dextrose 250 ml @ 0 mls/hr CONT PRN IV SEE I/O RECORD Last administered on 09/24/16 06:40; Start 09/22/16 at 15:00; Stop 09/25/16 at 22:10 ; Status DC Heparin Sodium/ Dextrose 500 ml @ 18 mls/hr CONT PRN IV SEE I/O RECORD Last administered on 09/25/16 09:49; Start 09/22/16 at 15:15; Stop 09/25/16 at 22:10 ; Status DC Heparin Sodium (Porcine) 1850 unit 1,850 unit PRN Q6HRS PRN IV FOR UFH LEVEL LESS THAN 0.2; Start 09/22/16 at 15:15; Stop 09/27/16 at 07:33; Status DC Heparin Sodium/ Dextrose 500 ml @ As Directed STK-MED ONCE IV ; Start 09/22/16 at 15:22; Stop 09/22/16 at 15:23; Status DC Fentanyl Citrate (Fentanyl 2ml Vial) 50 mcg 1X ONCE IV Last administered on 14:30; Start 09/22/16 at 14:30; Stop 09/22/16 at 16:14; Status DC Aspirin (Jocelyn Aspirin) 325 mg [id number] PO Last administered on 09/25/16 08: 35; Start 09/23/16 at 08:00; Stop 09/27/16 at 09:09; Status DC Isosorbide Mononitrate (Imdur) 30 mg DAILY PO Last administered on 09/25/16 08 :35; Start 09/23/16 at 09:00; Stop 09/25/16 at 22:14; Status DC Metoprolol Tartrate (Lopressor) 12.5 mg BID PO Last administered on 09/25/16 22:28; Start 09/23/16 at 15:00; Stop 09/27/16 at 07:31; Status DC Ondansetron HCl (Zofran) 4 mg PRN Q6HRS PRN IV NAUSEA/VOMITING Last administered on 09/26/16 17:41; Start 09/26/16 at 07:00; Stop 09/27/16 at 06:59; Status DC Fentanyl Citrate (Fentanyl 2ml Vial) 25 mcg PRN Q5MIN PRN IV MILD PAIN; Start 09/26/16 at 07:00; Stop 09/27/16 at 06:59; Status DC Fentanyl Citrate (Fentanyl 2ml Vial) 50 mcg PRN Q5MIN PRN IV MODERATE PAIN; Start 09/26/16 at 07:00; Stop 09/27/16 at 06:59; Status DC Morphine Sulfate 1 mg 1 mg PRN Q10MIN PRN IV SEVERE PAIN; Start 09/26/16 at 07: 00; Stop 09/27/16 at 06:59; Status DC Lactated Ringer's (Iv Lactated Ringers) 1,000 ml @ 0 mls/hr Q0M IV Last administered on 09/26/16 07:23; Start 09/26/16 at 07:00; Stop 09/26/16 at 18:59; Status DC Lidocaine HCl 2 ml PRN 1X PRN ID PRIOR TO IV START; Start 09/26/16 at 07:00; Stop 09/27/16 at 06:59; Status DC Hydromorphone HCl (Dilaudid) 0.5 mg PRN Q10MIN PRN IV SEV PAIN, Second choice; Start 09/26/16 at 07:00; Stop 09/26/16 at 18:35; Status DC Prochlorperazine Edisylate (Compazine) 5 mg PACU PRN PRN IV NAUSEA, MRX1; Start 09/26/16 at 07:00; Stop 09/27/16 at 06:59; Status DC Info 1 each 1 each PRN DAILY PRN MC SEE COMMENTS; Start 09/23/16 at 15:15; Stop 09/27/16 at 07:33; Status DC Heparin Sodium (Porcine) 42563 unit/Lactated Ringer's 1,020 ml @ 1,020 mls/hr 1X PERIOP ONCE IRR Last administered on 09/26/16 09:00; Start 09/26/16 at 06:00 ; Stop 09/26/16 at 06:59; Status DC Potassium Chloride 70 meq/ Sodium Bicarbonate 12.5 meq/Lidocaine HCl 24 ml/ Parenteral Electrolytes 571.5 ml @ 571.5 mls/ hr 1X PERIOP ONCE IRR Last administered on 09/26/16 11:02; Start 09/26/16 at 06:00; Stop 09/26/16 at 06:59; Status DC Potassium Chloride/Sodium Bicarbonate/ Parenteral Electrolytes (Isolyte S) 520 ml @ 520 mls/hr 1X PERIOP ONCE IRR Last administered on 09/26/16 11:02; Start 09/26/16 at 06:00; Stop 09/26/16 at 06:59; Status DC Vancomycin HCl (Vanco) 10 gm 1X ONCE CEMENT Last administered on 09/26/16 09: 00; Start 09/26/16 at 06:00; Stop 09/26/16 at 06:01; Status DC Zolpidem Tartrate (Ambien) 10 mg HS PO ; Start 09/25/16 at 21:00; Stop 09/25/16 at 21:00; Status DC Lorazepam (Ativan) 1 mg PRN Q6HRS PRN PO ANXIETY / AGITATION Last administered on 09/28/16t 09:20; Start 09/25/16 at 12:30 Zolpidem Tartrate (Ambien) 5 mg PRN QHS PRN PO INSOMNIA, MRP X1 IN 30 MIN; Start 09/25/16 at 12:30 Etomidate (Amidate) 20 mg STK-MED ONCE IV ; Start 09/25/16 at 21:28; Stop at 21:29; Status DC Phenylephrine HCl 10 mg 10 mg STK-MED ONCE .ROUTE ; Start 09/25/16 at 21:28; Stop 09/25/16 at 21:29; Status DC Propofol 0 ml @ As Directed STK-MED ONCE IV ; Start 09/25/16 at 21:28; Stop at 21:29; Status DC Nitroglycerin/ Dextrose (Nitroglycerin Drip) 250 ml @ As Directed STK-MED ONCE IV ; Start 09/25/16 at 21:28; Stop 09/25/16 at 21:29; Status DC Epinephrine HCl (Adrenalin) 1 mg STK-MED ONCE .ROUTE ; Start 09/25/16 at 21:28; Stop 09/25/16 at 21:29; Status DC Rocuronium Peru (Zemuron) 100 mg STK-MED ONCE .ROUTE ; Start 09/25/16 at 21: 28; Stop 09/25/16 at 21:29; Status DC Heparin Sodium (Porcine) 30,000 unit STK-MED ONCE .ROUTE ; Start 09/25/16 at 21: 29; Stop 09/25/16 at 21:30; Status DC Ephedrine Sulfate 50 mg STK-MED ONCE IV ; Start 09/25/16 at 21:29; Stop at 21:30; Status DC Aminocaproic Acid (Amicar) 5,000 mg STK-MED ONCE IV ; Start 09/25/16 at 21:29; Stop 09/25/16 at 21:30; Status DC Aminocaproic Acid (Amicar) 5,000 mg STK-MED ONCE IV ; Start 09/25/16 at 21:30; Stop 09/25/16 at 21:31; Status DC Isoflurane (Isoflurane) 90 ml STK-MED ONCE IH ; Start 09/25/16 at 21:47; Stop at 21:48; Status DC Aminocaproic Acid 5000 mg 5,000 mg STK-MED ONCE IV ; Start 09/25/16 at 21:57; Stop 09/25/16 at 21:58; Status DC Heparin Sodium/ Dextrose 500 ml @ 0 mls/hr CONT PRN IV SEE I/O RECORD; Start at 22:15; Stop 09/25/16 at 23:59; Status DC Nitroglycerin/ Dextrose 250 ml @ 0 mls/hr CONT PRN IV SEE I/O RECORD; Start at 22:15; Stop 09/26/16 at 02:00; Status DC Cefazolin Sodium/ Dextrose (Ancef 2gm Premix) 50 ml @ As Directed STK-MED ONCE IV ; Start 09/26/16 at 06:37; Stop 09/26/16 at 06:38; Status DC Midazolam HCl (Versed) 5 mg STK-MED ONCE .ROUTE ; Start 09/26/16 at 07:10; Stop 09/26/16 at 07:11; Status DC Sufentanil Citrate (Sufenta) 100 mcg STK-MED ONCE .ROUTE ; Start 09/26/16 at 07: 10; Stop 09/26/16 at 07:11; Status DC Vancomycin HCl (Vanco) 10 gm 1X ONCE CEMENT ; Start 09/26/16 at 07:15; Stop 09/26 at 07:16; Status Cancel Cellulose 1 each STK-MED ONCE .ROUTE Last administered on 09/26/16 09:00; Start 09/26/16 at 07:13; Stop 09/26/16 at 07:14; Status DC Papaverine HCl 60 mg STK-MED ONCE .ROUTE Last administered on 09/26/16 09:00; Start 09/26/16 at 07:13; Stop 09/26/16 at 07:14; Status DC Aspirin (Aspirin) 300 mg STK-MED ONCE .ROUTE Last administered on 09/26/16 13: 49; Start 09/26/16 at 07:13; Stop 09/26/16 at 07:14; Status DC Sodium Chloride 50 ml 50 ml STK-MED ONCE IJ Last administered on 09/26/16 09:00 ; Start 09/26/16 at 07:13; Stop 09/26/16 at 07:14; Status DC Cefazolin Sodium/ Sodium Chloride (Ancef/Iv Sodium Chloride 0.9% 500ml Bag) 500 ml @ 500 mls/hr 1X PERIOP ONCE IRR Last administered on 09/26/16t 09:00; Start 09/26/16 at 08:00; Stop 09/26/16 at 08:59; Status DC Sufentanil Citrate (Sufenta) 100 mcg STK-MED ONCE .ROUTE ; Start 09/26/16 at 09: 21; Stop 09/26/16 at 09:22; Status DC Rocuronium [place] 50 mg 50 mg STK-MED ONCE .ROUTE ; Start 09/26/16 at 10:37; Stop 09/26/16 at 10:38; Status DC Insulin Human Regular/Sodium Chloride (Novolin R Vial/ Iv Normal Saline 150ml) 151.5 ml @ 7.33 mls/hr 1X ONCE IV Last administered on 09/26/16 23:09; Start 09/26/16 at 11:30; Stop 09/27/16 at 08:10; Status DC Midazolam HCl (Versed) 2 mg STK-MED ONCE .ROUTE ; Start 09/26/16 at 12:14; Stop 09/26/16 at 12:15; Status DC Protamine Sulfate 50 mg STK-MED ONCE IV ; Start 09/26/16 at 12:22; Stop 09/26/16 at 12:23; Status DC Protamine Sulfate 250 mg STK-MED ONCE IV ; Start 09/26/16 at 12:22; Stop 09/26/16 at 12:23; Status DC Protamine Sulfate 50 mg STK-MED ONCE IV ; Start 09/26/16 at 12:23; Stop 09/26/16 at 12:24; Status DC Protamine Sulfate 250 mg STK-MED ONCE IV ; Start 09/26/16 at 12:23; Stop 09/26/16 at 12:24; Status DC Heparin Sodium (Porcine) (Heparin Sodium) 10,000 unit STK-MED ONCE .ROUTE ; Start 09/26/16 at 12:48; Stop 09/26/16 at 12:49; Status DC Lidocaine HCl (Lidocaine HCl 2% Abboject) 100 mg STK-MED ONCE .ROUTE ; Start 09/26/16 at 12:48; Stop 09/26/16 at 12:49; Status DC Mannitol (Mannitol) 12.5 g STK-MED ONCE .ROUTE ; Start 09/26/16 at 12:48; Stop at 12:49; Status DC Calcium Chloride 1,000 mg STK-MED ONCE IV ; Start 09/26/16 at 12:48; Stop at 12:49; Status DC Sodium Bicarbonate 50 meq 50 meq STK-MED ONCE .ROUTE ; Start 09/26/16 at 12:48; Stop 09/26/16 at 12:49; Status DC Albumin Human (Albuminar) 100 ml @ As Directed STK-MED ONCE IV ; Start 09/26/16 at 12:48; Stop 09/26/16 at 12:49; Status DC Heparin Sodium (Porcine) 94794 unit 30,000 unit STK-MED ONCE .ROUTE ; Start 09/26 at 12:48; Stop 09/26/16 at 12:49; Status DC Cefazolin Sodium/ Dextrose (Ancef 2gm Premix) 50 ml @ As Directed STK-MED ONCE IV ; Start 09/26/16 at 13:10; Stop 09/26/16 at 13:11; Status DC Sodium Chloride 3 ml 3 ml PRN Q12HR PRN IV AFTER MEDS AND BLOOD DRAWS; Start at 13:45 Lactated Ringer's 1,000 ml @ 30 mls/hr Q24H IV Last administered on 09/27/16t 13:42; Start 09/26/16 at 13:40 Insulin Human Regular/Sodium Chloride (Novolin R Vial/ Iv Normal Saline 150ml) 151.5 ml @ 0 mls/hr CONT PRN PRN IV SEE I/O RECORD; Start 09/26/16 at 13:45; Stop 09/27/16 at 12:57; Status DC Dextrose (Dextrose 50%-Water Syringe) 25 gm PRN Q15MIN PRN IV LOW BLOOD SUGAR; Start 09/26/16 at 13:45; Stop 09/27/16 at 12:57; Status DC Info 1 ea CONT PRN PRN MC SEE COMMENTS; Start 09/26/16 at 13:45 Info 1 ea 1 ea CONT PRN PRN MC SEE COMMENTS; Start 09/26/16 at 13:45 Magnesium Sulfate/ Dextrose (Magnesium Sulfate PREMIX 1GM) 100 ml @ 100 mls/hr PRN DAILY PRN IV FOR MAG < 2.2 Last administered on 09/27/16 07:49; Start at 13:45 Famotidine (Pepcid) 20 mg BID IVP Last administered on 09/26/16 20:31; Start at 21:00; Stop 09/27/16 at 09:09; Status DC Ondansetron HCl (Zofran) 4 mg PRN Q4HRS PRN IV NAUSEA/VOMITING 1ST CHOICE; Start 09/26/16 at 13:45 Metoclopramide HCl (Reglan) 10 mg PRN Q6HRS PRN IV NAUSEA/VOMITING 2ND CHOICE Last administered on 09/27/16 16:27; Start 09/26/16 at 13:45 Morphine Sulfate 2 mg PRN Q1HR PRN IV PAIN Last administered on 09/27/16 08:20 ; Start 09/26/16 at 13:45; Stop 09/27/16 at 09:09; Status DC Acetaminophen (Tylenol) 650 mg PRN Q4HRS PRN PO MILD PAIN / TEMP; Start at 13:45 Acetaminophen (Acetaminophen Supp) 650 mg PRN Q4HRS PRN [place] MILD PAIN / TEMP; Start 09/26/16 at 13:45 Meperidine HCl 12.5 mg 12.5 mg PRN Q15MIN PRN IV SHIVERING; Start 09/26/16 at 13 :45; Stop 09/27/16 at 09:09; Status DC Propofol (Diprivan) 100 ml @ 0 mls/hr CONT PRN PRN IV POSTOP SEDATION UNTIL EXTUBATE; Start 09/26/16 at 13:45; Stop 09/26/16 at 18:35; Status DC Senna/Docusate Sodium (Senna Plus) 1 tab BID PO Last administered on 09/28/16 08:14; Start 09/26/16 at 21:00 Bisacodyl (Dulcolax Supp) 10 mg PRN DAILY PRN [place] NO BOWEL MOVEMENT; Start at 13:45 Aspirin (Ecotrin) 325 mg DAILYWBKFT PO Last administered on 09/28/16 08:14; Start 09/27/16 at 08:00 Metoprolol Tartrate 25 mg 25 mg BID PO ; Start 09/27/16 at 09:00; Stop 09/27/16 at 13:04; Status DC Clevidipine (Cleviprex) 100 ml @ 0 mls/hr CONT PRN IV PER PROTOCOL; Start at 13:45; Stop 09/27/16 at 09:09; Status DC Oxycodone/ Acetaminophen (Percocet 5/325) 1 tab PRN Q4HRS PRN PO MILD PAIN; Start 09/26/16 at 13:45 Oxycodone/ Acetaminophen 2 tab 2 tab PRN Q4HRS PRN PO MODERATE PAIN, SEVERE PAIN Last administered on 09/28/16 08:13; Start 09/26/16 at 13:45 Cefazolin Sodium 1 gm/Sodium Chloride 50 ml @ 100 mls/hr Q8H IV Last administered on 09/28/16 00:17; Start 09/26/16 at 16:30; Stop 09/28/16 at 00:59; Status DC Albumin Human 500 ml @ 125 mls/hr 1X ONCE IV ; Start 09/26/16 at 13:45; Stop at 14:07; Status DC Albumin Human 500 ml @ 125 mls/hr 1X PRN PRN IV CI<2.0 AND CVP<5; Start at 13:45; Status Cancel Albumin Human 500 ml @ 125 mls/hr 1X PRN PRN IV CI<2.0 AND CVP<5; Start at 13:45; Status Cancel Albumin Human 500 ml @ 125 mls/hr 1X PRN PRN IV CI<2.0 AND CVP<5; Start at 13:45; Status Cancel Albumin Human (Plasmanate) 500 ml @ 125 mls/hr 1X PRN PRN IV CI<2.0 AND CVP<5 ; Start 09/26/16 at 14:07; Status Cancel Sodium Bicarbonate 50 meq 1X ONCE IV Last administered on 09/26/16 15:32; Start 09/26/16 at 15:15; Stop 09/26/16 at 15:17; Status DC Epinephrine HCl (Epinephrine Syringe) 1 mg 1X ONCE IV Last administered on 09/26 15:33; Start 09/26/16 at 15:15; Stop 09/26/16 at 15:17; Status DC Calcium Chloride 1000 mg 1,000 mg 1X ONCE IV Last administered on 09/26/16 15: 34; Start 09/26/16 at 15:15; Stop 09/26/16 at 15:17; Status DC Epinephrine HCl 4 mg/Sodium Chloride 254 ml @ 0 mls/hr CONT PRN IV SEE I/O RECORD Last administered on 09/26/16 15:49; Start 09/26/16 at 15:30; Stop at 09:09; Status DC Albumin Human 250 ml @ 62.5 mls/hr CONT PRN IV SEE COMMENTS Last administered on 09/26/16 15:40; Start 09/26/16 at 15:30; Stop 09/27/16 at 09:09; Status DC Potassium Chloride (KCl Premix 20meq) 50 ml @ 0 mls/hr Q1H IV Last administered on 09/26/16 18:45; Start 09/26/16 at 16:45; Stop 09/26/16 at 18:46; Status DC Hydromorphone HCl (Dilaudid) 0.5 mg PRN Q4HRS PRN IV PAIN Last administered on 09/27/16 03:04; Start 09/26/16 at 17:30; Stop 09/27/16 at 12:57; Status DC Famotidine (Pepcid) 20 mg BID PO Last administered on 09/28/16 08:14; Start 09/27/16 at 10:00 Metoprolol Tartrate (Lopressor) 12.5 mg BID PO ; Start 09/27/16 at 21:00; Status UNV Furosemide (Lasix) 20 mg BID IVP ; Start 09/27/16 at 13:00; Status UNV Metoprolol Tartrate (Lopressor) 12.5 mg BID PO Last administered on 09/28/16 08 :14; Start 09/27/16 at 21:00 Furosemide (Lasix) 20 mg BID92 IVP Last administered on 09/28/16 08:14; Start 09/27/16 at 14:00 Hydromorphone HCl 0.5 mg 0.5 mg PRN Q1HR PRN IV PAIN Last administered on 16:24; Start 09/27/16 at 14:00 Potassium Chloride (KCl Premix 20meq) 50 ml @ 50 mls/hr Q1H IV Last administered on 09/28/16 08:13; Start 09/28/16 at 07:00; Stop 09/28/16 at 08:59; Status DC Active Scripts Active NITROGLYCERIN SubLingual (Nitroglycerin) 0.4 Mg Tab.subl 1 Tab SL UD Isosorbide Mononitrate Er (Isosorbide Mononitrate) 30 Mg Tab.er.24h 1 Tab PO DAILY Reported Tamsulosin Hcl 0.4 Mg Cap.er.24h 0.4 Mg PO DAILY Lisinopril 10 Mg Tablet 1 Tab PO DAILY Atenolol 25 Mg Tablet 1 Tab PO DAILY Lo-Dose Aspirin EC (Aspirin) 81 Mg Tablet.dr 81 Mg PO Atorvastatin Calcium 80 Mg Tablet 40 Mg PO HS Vitals/I & O Vital Sign - Last 24 Hours 09/27/16 09/27/16 09/27/16 09/27/16 11:00 12:00 12:00 13:00 Temp 98.0 98.0 Pulse 86 88 80 Resp 22 28 B/P 110/74 94/64 99/67 Pulse Ox 97 98 O2 Delivery Nasal Cannula Nasal Cannula Nasal Cannula Nasal Cannula O2 Flow Rate 2.0 2.0 2.0 2.0 09/27/16 09/27/16 09/27/16 09/27/16 13:41 14:00 14:41 15:00 Pulse 84 92 Resp 18 B/P 100/71 118/76 Pulse Ox 97 97 O2 Delivery Nasal Cannula Nasal Cannula Nasal Cannula Nasal Cannula O2 Flow Rate 2.0 2.0 2.0 2.0 09/27/16 09/27/16 09/27/16 09/27/16 16:00 16:00 16:24 19:00 Temp 98.3 98.3 Pulse 82 85 B/P 105/68 Pulse Ox 99 99 98 O2 Delivery Nasal Cannula Nasal Cannula Nasal Cannula Nasal Cannula O2 Flow Rate 2.0 2.0 2.0 2.0 09/27/16 09/27/16 09/27/16 09/27/16 19:49 20:00 20:53 20:54 Temp 98.1 98.1 Pulse 80 81 Resp 17 B/P 110/77 110/77 Pulse Ox 98 98 O2 Delivery Nasal Cannula Nasal Cannula Nasal Cannula O2 Flow Rate 2.0 2.0 2.0 09/27/16 09/27/16 09/27/16 09/27/16 21:00 22:00 22:00 23:00 Pulse 81 82 85 Resp 12 B/P 101/65 104/65 98/63 Pulse Ox 99 99 95 O2 Delivery Nasal Cannula Nasal Cannula Room Air O2 Flow Rate 2.0 2.0 2.0 09/28/16 09/28/16 09/28/16 09/28/16 00:00 00:00 01:00 02:00 Temp 98.1 98.1 Pulse 83 86 80 Resp 18 12 B/P 97/59 94/57 90/56 Pulse Ox 95 93 92 O2 Delivery Room Air Room Air Room Air Room Air 09/28/16 09/28/16 09/28/16 09/28/16 03:00 04:00 04:00 05:00 Temp 98.6 98.6 Pulse 81 78 81 Resp 18 B/P 86/57 96/54 97/58 Pulse Ox 96 96 98 O2 Delivery Nasal Cannula Nasal Cannula Room Air Nasal Cannula O2 Flow Rate 2.0 2.0 2.0 09/28/16 09/28/16 09/28/16 09/28/16 06:00 07:00 08:00 08:00 Temp 98.7 98.7 Pulse 88 78 85 Resp 18 16 B/P 91/56 99/62 100/60 Pulse Ox 97 95 96 O2 Delivery Nasal Cannula Nasal Cannula Room Air Room Air O2 Flow Rate 2.0 2.0 09/28/16 09/28/16 09/28/16 09/28/16 08:13 08:14 09:00 09:20 Pulse 80 93 Resp 15 16 15 B/P 100/60 114/64 Pulse Ox 95 93 95 O2 Delivery Room Air Room Air Room Air Intake and Output 09/27/16 09/27/16 09/28/16 15:00 23:00 07:00 Intake Total 1755 ml 860 ml 326 ml Output Total 885 ml 1645 ml 470 ml Balance 870 ml -785 ml -144 ml PIOTR LOVE MD September 28, 2016 10:13
[2016-09-28] MEDS ORDERED: POTASSIUM CHLORIDE 20 MEQ TABLET.ER. PO ONE (10:15)
[2016-09-28 10:28] LABS: MAGNESIUM 1.3 mg/dL (1.8-2.4); POTASSIUM 4.9 mmol/L (3.5-5.1)
--- NOTE | 2016-09-28 10:39 | PDOC ---
Progress Note Subjective Subjective Progressing very well, ambulating. Normotensive and in sinus rhythm. Minimal drain output. Excellent UO. Labs and CXR OK ROS ROS No nausea No vomiting No SOB No pain No rash Vital Sign Vital Signs Vital Signs Date Time Temp Pulse Resp B/P Pulse Ox O2 Delivery O2 Flow Rate FiO2 09/28/16 10:00 86 16 112/68 95 Room Air 09/28/16 08:00 98.7 98.7 09/28/16 07:00 2.0 Physical Exam PHYSICAL EXAM GENERAL: NAD, Alert HEENT: PERRL, OC/OP NECK: Supple, no JVD LUNGS: Clear HEART: S1S2, no gallop, no murmur, sternotomy: stable, dressing C/D/I ABD: Soft, NT, no organomegaly EXT: No edema STILL TENDER: Alert, oriented x 3, no focal neurologic deficit SKIN: No rash IV: ok Labs Lab Laboratory Tests Test 09/28/16 05:40 09/28/16 10:10 White Blood Count 13.8x10^3/uL (4.0-11.0) Red Blood Count 2.41x10^6/uL (4.30-5.70) Hemoglobin 8.3g/dL (13.0-17.5) Hematocrit 24.1% (39.0-53.0) Mean Corpuscular Volume 100fL (79-100) Mean Corpuscular Hemoglobin 35pg (25-35) Mean Corpuscular Hemoglobin Concent 35g/dL (31-37) Red Cell Distribution Width 13.6% (11.5-14.5) Platelet Count 105x10^3/uL (140-400) Neutrophils (%) (Auto) 78% (31-73) Lymphocytes (%) (Auto) 12% (24-48) Monocytes (%) (Auto) 8% (0-9) Eosinophils (%) (Auto) 2% (0-3) Basophils (%) (Auto) 1% (0-3) Neutrophils # (Auto) 10.7x10^3uL (1.8-7.7) Lymphocytes # (Auto) 1.7x10^3/uL (1.0-4.8) Monocytes # (Auto) 1.1x10^3/uL (0.0-1.1) Eosinophils # (Auto) 0.3x10^3/uL (0.0-0.7) Basophils # (Auto) 0.1x10^3/uL (0.0-0.2) Sodium Level 136mmol/L (136-145) Potassium Level 3.5mmol/L (3.5-5.1) 4.9mmol/L (3.5-5.1) Chloride Level 101mmol/L (98-107) Carbon Dioxide Level 32mmol/L (21-32) Anion Gap 3 (6-14) Blood Urea Nitrogen 14mg/dL (8-26) Creatinine 0.8mg/dL (0.7-1.3) Estimated GFR (Cockcroft-Gault) 101.9 Glucose Level 91mg/dL (70-99) Calcium Level 8.9mg/dL (8.5-10.1) Magnesium Level 1.3mg/dL (1.8-2.4) Objective Assessment POD#2, s/p CABG x2. Progressing very well, ambulating. Normotensive and in sinus rhythm. Minimal drain output. Excellent UO. Labs and CXR OK Plan Plan of Care D/c pleural drain D/c cordis D/c brown Continue with 20mg iv lasix twice daily ASA, statin Low dose b-alicja, 12.5mg metoprolol BID OK to have one beer with each meal Transfer to stepdown EDWIN FERRERA MD September 28, 2016 10:39
[2016-09-28] MEDS ORDERED: KETOROLAC 15 MG/ML VIAL. IV PRN (10:45)
[2016-09-28] MEDS ORDERED: MAGNESIUM SULFATE 2GM 50 ML IV ONE (11:30)
--- NOTE | 2016-09-28 12:23 | PDOC ---
AZAR GAMING MARKET ANALYST 09/28/16 1223: CARDIO Progress Notes Date and Time Date of Service 09/28/2016 Time of Evaluation 1222 Subjective Subjective: No shortness of breath, No Palpitations, No Dizziness Vitals Vitals Vital Signs Date Time Temp Pulse Resp B/P Pulse Ox O2 Delivery O2 Flow Rate FiO2 09/28/16 11:00 94 16 110/68 93 Room Air 09/28/16 08:00 98.7 98.7 09/28/16 07:00 2.0 Weight Weight [ ] Input and Output Intake and Output Intake and Output 09/28/16 07:00 Intake Total 2941 ml Output Total 3000 ml Balance -59 ml Intake Oral 2305 ml IV Total 636 ml Output Urine Total 2730 ml Chest Tube Drainage Total 270 ml Laboratory Labs Laboratory Tests Test 09/28/16 05:40 09/28/16 10:10 White Blood Count 13.8x10^3/uL (4.0-11.0) Red Blood Count 2.41x10^6/uL (4.30-5.70) Hemoglobin 8.3g/dL (13.0-17.5) Hematocrit 24.1% (39.0-53.0) Mean Corpuscular Volume 100fL (79-100) Mean Corpuscular Hemoglobin 35pg (25-35) Mean Corpuscular Hemoglobin Concent 35g/dL (31-37) Red Cell Distribution Width 13.6% (11.5-14.5) Platelet Count 105x10^3/uL (140-400) Neutrophils (%) (Auto) 78% (31-73) Lymphocytes (%) (Auto) 12% (24-48) Monocytes (%) (Auto) 8% (0-9) Eosinophils (%) (Auto) 2% (0-3) Basophils (%) (Auto) 1% (0-3) Neutrophils # (Auto) 10.7x10^3uL (1.8-7.7) Lymphocytes # (Auto) 1.7x10^3/uL (1.0-4.8) Monocytes # (Auto) 1.1x10^3/uL (0.0-1.1) Eosinophils # (Auto) 0.3x10^3/uL (0.0-0.7) Basophils # (Auto) 0.1x10^3/uL (0.0-0.2) Sodium Level 136mmol/L (136-145) Potassium Level 3.5mmol/L (3.5-5.1) 4.9mmol/L (3.5-5.1) Chloride Level 101mmol/L (98-107) Carbon Dioxide Level 32mmol/L (21-32) Anion Gap 3 (6-14) Blood Urea Nitrogen 14mg/dL (8-26) Creatinine 0.8mg/dL (0.7-1.3) Estimated GFR (Cockcroft-Gault) 101.9 Glucose Level 91mg/dL (70-99) Calcium Level 8.9mg/dL (8.5-10.1) Magnesium Level 1.3mg/dL (1.8-2.4) Physical Exam HEENT: Neck Supple W Full Motion Chest: Symmetric, Other (mediastinal and pleural tubes; mediastinal chest dressing) LUNGS: Other (diminished anteriorly; poor inspiration ) Heart: S1S2, RRR, no murmurs, other (tele: SR) Abdomen: Soft N/T Extremities: No Edema Neurology: alert, oriented, follow commands Assessment Assessment 1. NSTEMI 2 vessel CAD on cath; preserved LV function pre-operatively CABG with SVG to LAD and SVG to D1 hypotension/VT with papaverine inj to SOUTH - harvest aborted fast track extubation management per CTS - transferring to CVC 2. HLD LDLs = 128 continue high dose statin therapy 3. substance abuse tobacco ETOH 4. hypomagnesemia being replaced 5. acute blood loss anemia, expected post-operative CABG LEATHA MARCANO MD 09/28/168: CARDIO Progress Notes Plan Plan Pt. seen and examined. 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 No acute events. Doing a bit better today. Mack out. UOP excellent Labs reviewed Meds reviewed. Anticipate dc later this week. 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 may qualify for medicaid ? AZAR GAMING MARKET ANALYST September 28, 2016 12:23 LEATHA MARCANO MD September 28, 2016 21:18
[2016-09-28] MEDS ORDERED: NITROGLYCERIN SUBLINGUAL 0.4 MG BOTTLE OF 25. SL PRN (12:30)
[2016-09-28] MEDS ORDERED: MAGNESIUM HYDROXIDE 2,400 MG/30 ML ORAL.SUSP. PO PRN (12:30)
[2016-09-28] MEDS ORDERED: MAG HYDROX/ALUMINUM HYD/SIMETH 30 ML ORAL.SUSP PO PRN (12:30)
[2016-09-28] MEDS: ATORVASTATIN CALCIUM 40 MG TABLET. PO SCH (20:21)
[2016-09-28] MEDS ORDERED: CALCIUM CHLORIDE 1,000 MG/10 ML DISP.SYRIN IV ONE (21:00)
[2016-09-28] MEDS ORDERED: SODIUM BICARB ADULT 8.4% 50 MEQ/50 ML DISP.SYRIN. ONE (21:00)
[2016-09-28] MEDS ORDERED: EPINEPHrine SYRINGE 1 MG/10 ML SYRINGE ONE (21:00)
[2016-09-29] VITALS (8 sets, daily range): BP systolic 94–112; BP diastolic 45–64
[2016-09-29] MEDS: oxyCODONE/APAP 5/325 1 TAB TABLET PO PRN ×2 (02:45→18:23)
[2016-09-29 03:29] LABS: BASO # 0.1 x10^3/uL (0.0-0.2); BASO % 1 % (0-3); EOS % 3 % (0-3); HEMATOCRIT 22.4 % (39.0-53.0); LYMPH # 1.7 x10^3/uL (1.0-4.8); LYMPH % 16 % (24-48); MEAN CORPUSCULAR HEMOGLOBIN 35 pg (25-35); MEAN CORPUSCULAR HGB CONC 36 g/dL (31-37); MEAN CORPUSCULAR VOLUME 99 fL (79-100); MONO % 10 % (0-9); NEUT % 71 % (31-73); PLATELET COUNT 127 x10^3/uL (140-400); RED BLOOD COUNT 2.27 x10^6/uL (4.30-5.70); RED CELL DISTRIBUTION WIDTH 13.4 % (11.5-14.5); WHITE BLOOD COUNT 10.6 x10^3/uL (4.0-11.0)
[2016-09-29 07:36] LABS: CALCIUM 8.2 mg/dL (8.5-10.1); CREATININE 0.9 mg/dL (0.7-1.3); POTASSIUM 3.3 mmol/L (3.5-5.1)
[2016-09-29] MEDS: FAMOTIDINE 20 MG TABLET. PO SCH ×2 (08:11→20:47)
[2016-09-29] MEDS: ASPIRIN ENTERIC COATED 325 MG TABLET.DR. PO SCH (08:11)
[2016-09-29] MEDS: METOPROLOL TART IMMED RELEASE 25 MG TABLET. PO SCH ×2 (08:12→20:48)
[2016-09-29] MEDS: FUROSEMIDE 20 MG/2 ML VIAL. IVP SCH ×2 (08:12→13:03)
[2016-09-29] MEDS: SENNOSIDES/DOCUSATE 8.6/50MG TABLET. PO SCH ×2 (08:12→20:50)
--- NOTE | 2016-09-29 08:18 | RAD ---
Portable chest, 09/29/2016: History: Postop CABG Comparison is made to yesterday study. The left chest tube and right jugular vascular sheath have been removed. The heart size and pulmonary vascularity are normal. There is mild streaky left basilar atelectasis/infiltrate. There is minimal linear atelectasis in the right base. No significant volume of pleural fluid or significant pneumothorax is evident. The postoperative chest is otherwise unremarkable. IMPRESSION: Mild left basilar atelectasis/infiltrate.
[2016-09-29] MEDS ORDERED: POTASSIUM CHLORIDE 20 MEQ TABLET.ER. PO ONE ×2 (11:15→18:00)
--- NOTE | 2016-09-29 11:18 | PDOC ---
CARDIO Progress Notes Date and Time Date of Service 09/29/2016 Time of Evaluation 1113 Subjective Subjective: No Chest Pain, No shortness of breath, No Palpitations, No Dizziness, Other (walking hallways; had BM) Vitals Vitals Vital Signs Date Time Temp Pulse Resp B/P (MAP) Pulse Ox O2 Delivery O2 Flow Rate FiO2 09/29/16 08:12 90 111/60 09/29/16 07:44 Room Air 09/29/16 07:00 98.5 18 94 98.5 09/28/16 17:57 2.0 Weight Weight [ ] Input and Output Intake and Output Intake and Output 09/29/16 07:00 Intake Total 1020 ml Output Total 800 ml Balance 220 ml Intake Oral 920 ml IV Total 100 ml Output Urine Total 800 ml Laboratory Labs Laboratory Tests Test 09/29/16 03:20 White Blood Count 10.6 x10^3/uL (4.0-11.0) Red Blood Count 2.27 x10^6/uL (4.30-5.70) Hemoglobin 8.0 g/dL (13.0-17.5) Hematocrit 22.4 % (39.0-53.0) Mean Corpuscular Volume 99 fL (79-100) Mean Corpuscular Hemoglobin 35 pg (25-35) Mean Corpuscular Hemoglobin Concent 36 g/dL (31-37) Red Cell Distribution Width 13.4 % (11.5-14.5) Platelet Count 127 x10^3/uL (140-400) Neutrophils (%) (Auto) 71 % (31-73) Lymphocytes (%) (Auto) 16 % (24-48) Monocytes (%) (Auto) 10 % (0-9) Eosinophils (%) (Auto) 3 % (0-3) Basophils (%) (Auto) 1 % (0-3) Neutrophils # (Auto) 7.6 x10^3uL (1.8-7.7) Lymphocytes # (Auto) 1.7 x10^3/uL (1.0-4.8) Monocytes # (Auto) 1.0 x10^3/uL (0.0-1.1) Eosinophils # (Auto) 0.3 x10^3/uL (0.0-0.7) Basophils # (Auto) 0.1 x10^3/uL (0.0-0.2) Sodium Level 134 mmol/L (136-145) Potassium Level 3.3 mmol/L (3.5-5.1) Chloride Level 97 mmol/L (98-107) Carbon Dioxide Level 33 mmol/L (21-32) Anion Gap 4 (6-14) Blood Urea Nitrogen 16 mg/dL (8-26) Creatinine 0.9 mg/dL (0.7-1.3) Estimated GFR (Cockcroft-Gault) 89.0 Glucose Level 100 mg/dL (70-99) Calcium Level 8.2 mg/dL (8.5-10.1) Physical Exam HEENT: Neck Supple W Full Motion Chest: Symmetric, Other (mediastinal and pleural tubes; mediastinal chest dressing) LUNGS: Clear to Auscultation (decreased in bases) Heart: S1S2, RRR, no murmurs, other (tele: SR) Abdomen: Soft N/T Extremities: No Edema Neurology: alert, oriented, follow commands Assessment Assessment 1. NSTEMI 2 vessel CAD on cath; preserved LV function pre-operatively CABG with SVG to LAD and SVG to D1 hypotension/VT with papaverine inj to SOUTH - harvest aborted fast track extubation management per CTS 2. HLD LDLs = 128 continue high dose statin therapy 3. substance abuse tobacco ETOH 4. hypomagnesemia recheck today 5. acute blood loss anemia, expected post-operative CABG Hgb stable 6. hypokalemia will replace AZAR GAMING APRN September 29, 2016 11:18
[2016-09-29] MEDS ORDERED: MAGNESIUM SULFATE 2GM 50 ML IV ONE (13:00)
[2016-09-29] MEDS: THIAMINE 100 MG TABLET. PO SCH (13:03)
[2016-09-29] MEDS: VITAMIN B12,B9,B6 COMPLEX 1 TABLET. PO SCH (13:03)
[2016-09-29] MEDS: MULTIVITAMIN with MINERAL TABLET. PO SCH (13:03)
--- NOTE | 2016-09-29 14:25 | PDOC ---
Progress Note Subjective Subjective Doing well, no issues. Normotensive and in sinus rhythm. Ambulating. 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 3, no focal neurologic deficit SKIN: No rash IV: ok Labs Lab Laboratory Tests Test 09/29/16 03:20 White Blood Count 10.6 x10^3/uL (4.0-11.0) Red Blood Count 2.27 x10^6/uL (4.30-5.70) Hemoglobin 8.0 g/dL (13.0-17.5) Hematocrit 22.4 % (39.0-53.0) Mean Corpuscular Volume 99 fL (79-100) Mean Corpuscular Hemoglobin 35 pg (25-35) Mean Corpuscular Hemoglobin Concent 36 g/dL (31-37) Red Cell Distribution Width 13.4 % (11.5-14.5) Platelet Count 127 x10^3/uL (140-400) Neutrophils (%) (Auto) 71 % (31-73) Lymphocytes (%) (Auto) 16 % (24-48) Monocytes (%) (Auto) 10 % (0-9) Eosinophils (%) (Auto) 3 % (0-3) Basophils (%) (Auto) 1 % (0-3) Neutrophils # (Auto) 7.6 x10^3uL (1.8-7.7) Lymphocytes # (Auto) 1.7 x10^3/uL (1.0-4.8) Monocytes # (Auto) 1.0 x10^3/uL (0.0-1.1) Eosinophils # (Auto) 0.3 x10^3/uL (0.0-0.7) Basophils # (Auto) 0.1 x10^3/uL (0.0-0.2) Sodium Level 134 mmol/L (136-145) Potassium Level 3.3 mmol/L (3.5-5.1) Chloride Level 97 mmol/L (98-107) Carbon Dioxide Level 33 mmol/L (21-32) Anion Gap 4 (6-14) Blood Urea Nitrogen 16 mg/dL (8-26) Creatinine 0.9 mg/dL (0.7-1.3) Estimated GFR (Cockcroft-Gault) 89.0 Glucose Level 100 mg/dL (70-99) Calcium Level 8.2 mg/dL (8.5-10.1) Magnesium Level 1.8 mg/dL (1.8-2.4) Objective Assessment POD#3, s/p CABG x2. Doing well, no issues. Normotensive and in sinus rhythm. Ambulating. Had BM Plan Plan of Care D/c pacing wires Stop Lasix No more CXRs or CBC checks ASA, statin Low dose b-alicja, 12.5mg metoprolol BID Home tomorrow EDWIN FERRERA MD September 29, 2016 14:25
[2016-09-29] MEDS: LORazepam 1 MG TABLET PO PRN (18:22)
[2016-09-29] MEDS: ATORVASTATIN CALCIUM 40 MG TABLET. PO SCH (20:47)
[2016-09-30] MEDS ORDERED: PROPOFOL 10 MG/ML (100ML) VIAL. IV ONE (00:25)
[2016-09-30] MEDS ORDERED: ALBUMIN HUMAN 5% 12.5 G/250 ML VIAL. IV ONE (00:25)
[2016-09-30 03:30] VITALS: BP 89/53
[2016-09-30] MEDS: LORazepam 1 MG TABLET PO PRN (06:21)
[2016-09-30] MEDS: oxyCODONE/APAP 5/325 1 TAB TABLET PO PRN ×2 (06:22→12:57)
[2016-09-30 06:59] VITALS: BP 95/57
[2016-09-30] MEDS: SENNOSIDES/DOCUSATE 8.6/50MG TABLET. PO SCH (09:00)
[2016-09-30] MEDS: THIAMINE 100 MG TABLET. PO SCH (09:21)
[2016-09-30] MEDS: FAMOTIDINE 20 MG TABLET. PO SCH (09:21)
[2016-09-30] MEDS: MULTIVITAMIN with MINERAL TABLET. PO SCH (09:21)
[2016-09-30] MEDS: ASPIRIN ENTERIC COATED 325 MG TABLET.DR. PO SCH (09:21)
[2016-09-30] MEDS: VITAMIN B12,B9,B6 COMPLEX 1 TABLET. PO SCH (09:21)
[2016-09-30] MEDS: METOPROLOL TART IMMED RELEASE 25 MG TABLET. PO SCH (09:22)
[2016-09-30 10:38] VITALS: BP 110/74
[2016-09-30] MEDS ORDERED: METO25TA4 PO (11:31)
[2016-09-30] MEDS ORDERED: OXYC1TAB7 PO (11:31)
[2016-09-30] MEDS ORDERED: ASPI325T11 PO (11:31)
[2016-09-30] MEDS ORDERED: ATOR40TA59 PO (11:31)
--- NOTE | 2016-09-30 11:34 | PDOC ---
CARDIO Progress Notes Date and Time Date of Service 09/30/2016 Time of Evaluation 1134 Subjective Subjective: No Chest Pain, No shortness of breath, No Palpitations, No Dizziness, Other (walking hallways; had BM) Vitals Vitals Vital Signs Date Time Temp Pulse Resp B/P (MAP) Pulse Ox O2 Delivery O2 Flow Rate FiO2 09/30/16 10:38 84 18 110/74 (86) 95 Room Air 09/30/16 06:59 98.5 98.5 Weight Weight [ ] Stability Assessment Stability Assess.: other (agreeable with discharge) Input and Output Intake and Output Intake and Output 09/30/16 07:00 Intake Total 940 ml Output Total 300 ml Balance 640 ml Intake Oral 940 ml Output Urine Total 300 ml # Voids 4 # Bowel Movements 1 Physical Exam HEENT: Neck Supple W Full Motion Chest: Symmetric, Other (skin irritation from removal of aqua cell dressing over incision) LUNGS: Clear to Auscultation (decreased in bases) Heart: S1S2, RRR, no murmurs, other (tele: SR; no atrial dysryhthmias) Abdomen: Soft N/T Extremities: No Edema, Other (LLE incision healing; mild ecchymosis from harvest area) Neurology: alert, oriented, follow commands Assessment Assessment 1. NSTEMI 2 vessel CAD on cath; preserved LV function pre-operatively CABG with SVG to LAD and SVG to D1 hypotension/VT with papaverine inj to SOUHT - harvest aborted fast track extubation discharge planned for today f/u appts scheduled - has aspirin and Livalo samples 2. HLD LDLs = 128 continue high dose statin therapy 3. substance abuse tobacco ETOH 4. hypomagnesemia resolved 5. acute blood loss anemia, expected post-operative CABG Hgb stable 6. hypokalemia replaced/resolved diuretics d/c AZAR GAMING APRN September 30, 2016 11:34
--- NOTE | 2016-09-30 13:10 | PDOC ---
PROGRESS NOTES Chief Complaint Chief Complaint LATE ENTRY, pt seen 09/29 cc: chest pain, sob - NSTEMI prior VT CAD with prior PCI/stenting diabetes mellitus alcohol use disorder with withdrawal symptoms history of tobacco use History of Present Illness History of Present Illness s.p CABG. dyspnea is improved, ambulating better Vitals Vitals Vital Signs Date Time Temp Pulse Resp B/P (MAP) Pulse Ox O2 Delivery O2 Flow Rate FiO2 09/30/16 12:57 Room Air 09/30/16 10:38 84 18 110/74 (86) 95 09/30/16 06:59 98.5 98.5 Physical Exam Physical Exam GENERAL: NAD, Alert HEENT: PERRL, OC/OP NECK: Supple, no JVD LUNGS: Clear HEART: S1S2, no gallop, no murmur, sternotomy: stable, dressing C/D/I ABD: Soft, NT, no organomegaly EXT: No edema PLANE TABLEMAN: Alert, oriented x 3, no focal neurologic deficit SKIN: No rash IV: ok General: Alert, Oriented X3, Cooperative, No acute distress Heart: Regular rate, Normal S1, Normal S2 Lungs: Clear, Other (negative accessory muscle use ) Abdomen: Soft, No tenderness Extremities: No clubbing, No cyanosis, No edema Skin: Other (surgical incision healing properly) Review of Systems Review of Systems some mild chest pain, soreness, eating well plan DC soon Assessment and Plan Assessmemt and Plan Problems Medical Problems: (1) CAD (coronary artery disease) Status: Acute (2) NSTEMI (non-ST elevated myocardial infarction) Status: Acute Problems: Comment Review of Relevant I have reviewed the following items mike (where applicable) has been applied. Labs Laboratory Tests Test 09/29/16 03:20 White Blood Count 10.6 x10^3/uL (4.0-11.0) Red Blood Count 2.27 x10^6/uL (4.30-5.70) Hemoglobin 8.0 g/dL (13.0-17.5) Hematocrit 22.4 % (39.0-53.0) Mean Corpuscular Volume 99 fL (79-100) Mean Corpuscular Hemoglobin 35 pg (25-35) Mean Corpuscular Hemoglobin Concent 36 g/dL (31-37) Red Cell Distribution Width 13.4 % (11.5-14.5) Platelet Count 127 x10^3/uL (140-400) Neutrophils (%) (Auto) 71 % (31-73) Lymphocytes (%) (Auto) 16 % (24-48) Monocytes (%) (Auto) 10 % (0-9) Eosinophils (%) (Auto) 3 % (0-3) Basophils (%) (Auto) 1 % (0-3) Neutrophils # (Auto) 7.6 x10^3uL (1.8-7.7) Lymphocytes # (Auto) 1.7 x10^3/uL (1.0-4.8) Monocytes # (Auto) 1.0 x10^3/uL (0.0-1.1) Eosinophils # (Auto) 0.3 x10^3/uL (0.0-0.7) Basophils # (Auto) 0.1 x10^3/uL (0.0-0.2) Sodium Level 134 mmol/L (136-145) Potassium Level 3.3 mmol/L (3.5-5.1) Chloride Level 97 mmol/L (98-107) Carbon Dioxide Level 33 mmol/L (21-32) Anion Gap 4 (6-14) Blood Urea Nitrogen 16 mg/dL (8-26) Creatinine 0.9 mg/dL (0.7-1.3) Estimated GFR (Cockcroft-Gault) 89.0 Glucose Level 100 mg/dL (70-99) Calcium Level 8.2 mg/dL (8.5-10.1) Magnesium Level 1.8 mg/dL (1.8-2.4) Medications Current Medications Nitroglycerin (Nitrostat) 0.4 mg STK-MED ONCE SL ; Start 09/22/16 at 11:13; Stop 09/22/16 at 11:14; Status DC Aspirin (Children'S Aspirin) 324 mg 1X ONCE PO Last administered on 09/22/16 11:15; Start 09/22/16 at 11:15; Stop 09/22/16 at 11:20; Status DC Morphine Sulfate 4 mg PRN Q15MIN PRN IV/SQ PAIN GREATER THAN 3/10 Last administered on 09/22/16 13:16; Start 09/22/16 at 11:15; Stop 09/23/16 at 11:14 ; Status DC Sodium Chloride 1,000 ml @ 1,000 mls/hr Q1H IV Last administered on 09/22/16 11:33; Start 09/22/16 at 11:15; Stop 09/22/16 at 12:14; Status DC Nitroglycerin (Nitrostat) 0.4 mg PRN Q5MIN PRN SL CHEST PAIN Last administered on 09/22/16 12:03; Start 09/22/16 at 11:15; Stop 09/29/16 at 10:43; Status DC Lorazepam (Ativan) 2 mg 1X ONCE IV Last administered on 09/22/16 11:47; Start 09/22/16 at 11:45; Stop 09/22/16 at 11:46; Status DC Ondansetron HCl (Zofran) 8 mg 1X ONCE IV Last administered on 09/22/16 11:47 ; Start 09/22/16 at 11:45; Stop 09/22/16 at 11:46; Status DC Nitroglycerin (Nitro-Bid Oint) 1 inch 1X ONCE TP Last administered on 12:08; Start 09/22/16 at 12:15; Stop 09/22/16 at 12:16; Status DC Sodium Chloride 1,000 ml @ 0 mls/hr Q0M IV ; Start 09/22/16 at 13:01; Stop at 13:00; Status DC Magnesium Sulfate/ Dextrose 50 ml @ 25 mls/hr 1X ONCE IV Last administered on 09/22/16 13:17; Start 09/22/16 at 14:00; Stop 09/22/16 at 15:59; Status DC Atorvastatin Calcium (Lipitor) 80 mg QHS PO Last administered on 09/29/16 20:47 ; Start 09/22/16 at 21:00 Fentanyl Citrate (Fentanyl 2ml Vial) 100 mcg STK-MED ONCE .ROUTE ; Start at 13:06; Stop 09/22/16 at 13:07; Status DC Midazolam HCl (Versed) 2 mg STK-MED ONCE .ROUTE ; Start 09/22/16 at 13:06; Stop 09/22/16 at 13:07; Status DC Nitroglycerin (Nitroglycerin) 200 mcg STK-MED ONCE .ROUTE ; Start 09/22/16 at 13 :08; Stop 09/22/16 at 13:09; Status DC Verapamil HCl (Verapamil) 5 mg STK-MED ONCE .ROUTE ; Start 09/22/16 at 13:08; Stop 09/22/16 at 13:09; Status DC Heparin Sodium (Porcine) (Heparin Sodium) 10,000 unit STK-MED ONCE .ROUTE ; Start 09/22/16 at 13:08; Stop 09/22/16 at 13:09; Status DC Ondansetron HCl (Zofran) 4 mg PRN Q8HRS PRN IV NAUSEA/VOMITING; Start 09/22/16 at 13:30; Stop 09/23/16 at 13:29; Status DC Fentanyl Citrate (Fentanyl 2ml Vial) 50 mcg PRN Q2HR PRN IV PAIN; Start at 13:30; Stop 09/23/16 at 13:29; Status DC Iohexol (Omnipaque 300 Mg/ml) 100 ml STK-MED ONCE .ROUTE ; Start 09/22/16 at 13: 30; Stop 09/22/16 at 13:31; Status DC Heparin Sodium/ Sodium Chloride 1,000 ml @ As Directed STK-MED ONCE .ROUTE ; Start 09/22/16 at 13:30; Stop 09/22/16 at 13:31; Status DC Lidocaine HCl 20 ml STK-MED ONCE .ROUTE ; Start 09/22/16 at 13:30; Stop at 13:31; Status DC Heparin Sodium/ Sodium Chloride 500 ml @ As Directed STK-MED ONCE .ROUTE ; Start 09/22/16 at 13:32; Stop 09/22/16 at 13:33; Status DC Tirofiban/Sodium Chloride 250 ml @ As Directed STK-MED ONCE IV ; Start at 13:51; Stop 09/22/16 at 13:52; Status DC Nitroglycerin (Nitroglycerin) 200 mcg 1X ONCE IART Last administered on t 15:13; Start 09/22/16 at 14:15; Stop 09/22/16 at 14:16; Status DC Verapamil HCl (Verapamil) 2.5 mg 1X ONCE IART Last administered on 09/22/16t 15:15; Start 09/22/16 at 14:15; Stop 09/22/16 at 14:16; Status DC Heparin Sodium (Porcine) (Heparin Sodium) 2,500 unit 1X ONCE IART Last administered on 09/22/16 15:18; Start 09/22/16 at 14:15; Stop 09/22/16 at 14:16 ; Status DC Heparin Sodium/ Sodium Chloride 1,000 unit 1X ONCE IART Last administered on 15:16; Start 09/22/16 at 14:15; Stop 09/22/16 at 14:16; Status DC Heparin Sodium/ Sodium Chloride 1,000 unit 1X ONCE IART Last administered on 15:16; Start 09/22/16 at 14:15; Stop 09/22/16 at 14:16; Status DC Midazolam HCl (Versed) 2 mg 1X ONCE IV Last administered on 09/22/16 15:14; Start 09/22/16 at 14:15; Stop 09/22/16 at 14:16; Status DC Iohexol (Omnipaque 300 Mg/ml) 100 ml 1X ONCE IART Last administered on 15:15; Start 09/22/16 at 14:15; Stop 09/22/16 at 14:16; Status DC Heparin Sodium (Porcine) (Heparin Sodium) 4,000 unit 1X ONCE IV Last administered on 09/22/16 15:19; Start 09/22/16 at 14:15; Stop 09/22/16 at 14:16 ; Status DC Lidocaine HCl 20 ml 1X ONCE IJ Last administered on 09/22/16 15:15; Start at 14:15; Stop 09/22/16 at 14:16; Status DC Tirofiban/Sodium Chloride 250 ml @ 0 mls/hr CONT PRN IV PER PROTOCOL Last administered on 09/22/16 15:17; Start 09/22/16 at 13:57; Stop 09/23/16 at 07:56 ; Status DC Info (Do NOT chart on this entry -- for MONITORING) 1 each PRN DAILY PRN MC SEE COMMENTS; Start 09/22/16 at 14:30; Stop 09/24/16 at 14:29; Status DC Fentanyl Citrate (Fentanyl 2ml Vial) 50 mcg 1X ONCE IM ; Start 09/22/16 at 14: 30; Stop 09/22/16 at 14:31; Status Cancel Iohexol (Omnipaque 300 Mg/ml) 100 ml STK-MED ONCE .ROUTE ; Start 09/22/16 at 14: 34; Stop 09/22/16 at 14:35; Status DC Nitroglycerin (Nitroglycerin) 200 mcg 1X ONCE IART Last administered on 15:13; Start 09/22/16 at 14:38; Stop 09/22/16 at 14:43; Status DC Nitroglycerin/ Dextrose 250 ml @ As Directed STK-MED ONCE IV ; Start 09/22/16 at 14:46; Stop 09/22/16 at 14:47; Status DC Nitroglycerin/ Dextrose 250 ml @ 0 mls/hr CONT PRN IV SEE I/O RECORD Last administered on 09/24/16 06:40; Start 09/22/16 at 15:00; Stop 09/25/16 at 22:10 ; Status DC Heparin Sodium/ Dextrose 500 ml @ 18 mls/hr CONT PRN IV SEE I/O RECORD Last administered on 09/25/16 09:49; Start 09/22/16 at 15:15; Stop 09/25/16 at 22:10 ; Status DC Heparin Sodium (Porcine) (Heparin Sodium) 1,850 unit PRN Q6HRS PRN IV FOR UFH LEVEL LESS THAN 0.2; Start 09/22/16 at 15:15; Stop 09/27/16 at 07:33; Status DC Heparin Sodium/ Dextrose 500 ml @ As Directed STK-MED ONCE IV ; Start 09/22/16 at 15:22; Stop 09/22/16 at 15:23; Status DC Fentanyl Citrate (Fentanyl 2ml Vial) 50 mcg 1X ONCE IV Last administered on 14:30; Start 09/22/16 at 14:30; Stop 09/22/16 at 16:14; Status DC Aspirin (Jocelyn Aspirin) 325 mg DAILYWBKFT PO Last administered on 09/25/16 08: 35; Start 09/23/16 at 08:00; Stop 09/27/16 at 09:09; Status DC Isosorbide Mononitrate (Imdur) 30 mg DAILY PO Last administered on 09/25/16 08 :35; Start 09/23/16 at 09:00; Stop 09/25/16 at 22:14; Status DC Metoprolol Tartrate (Lopressor) 12.5 mg BID PO Last administered on 09/25/16 22:28; Start 09/23/16 at 15:00; Stop 09/27/16 at 07:31; Status DC Ondansetron HCl (Zofran) 4 mg PRN Q6HRS PRN IV NAUSEA/VOMITING Last administered on 09/26/16 17:41; Start 09/26/16 at 07:00; Stop 09/27/16 at 06:59; Status DC Fentanyl Citrate (Fentanyl 2ml Vial) 25 mcg PRN Q5MIN PRN IV MILD PAIN; Start 09/26/16 at 07:00; Stop 09/27/16 at 06:59; Status DC Fentanyl Citrate (Fentanyl 2ml Vial) 50 mcg PRN Q5MIN PRN IV MODERATE PAIN; Start 09/26/16 at 07:00; Stop 09/27/16 at 06:59; Status DC Morphine Sulfate 1 mg PRN Q10MIN PRN IV SEVERE PAIN; Start 09/26/16 at 07:00; Stop 09/27/16 at 06:59; Status DC Lactated Ringer's 1,000 ml @ 0 mls/hr Q0M IV Last administered on 09/26/16 07: 23; Start 09/26/16 at 07:00; Stop 09/26/16 at 18:59; Status DC Lidocaine HCl 2 ml PRN 1X PRN ID PRIOR TO IV START; Start 09/26/16 at 07:00; Stop 09/27/16 at 06:59; Status DC Hydromorphone HCl (Dilaudid) 0.5 mg PRN Q10MIN PRN IV SEV PAIN, Second choice; Start 09/26/16 at 07:00; Stop 09/26/16 at 18:35; Status DC Prochlorperazine Edisylate (Compazine) 5 mg PACU PRN PRN IV NAUSEA, MRX1; Start 09/26/16 at 07:00; Stop 09/27/16 at 06:59; Status DC Info (Anti-Coagulation Monitoring By Pharmacy) 1 each PRN DAILY PRN MC SEE COMMENTS; Start 09/23/16 at 15:15; Stop 09/27/16 at 07:33; Status DC Heparin Sodium (Porcine) 79007 unit/Lactated Ringer's 1,020 ml @ 1,020 mls/hr 1X PERIOP ONCE IRR Last administered on 09/26/16 09:00; Start 09/26/16 at 06:00 ; Stop 09/26/16 at 06:59; Status DC Potassium Chloride 70 meq/ Sodium Bicarbonate 12.5 meq/Lidocaine HCl 24 ml/ Parenteral Electrolytes 571.5 ml @ 571.5 mls/ hr 1X PERIOP ONCE IRR Last administered on 09/26/16 11:02; Start 09/26/16 at 06:00; Stop 09/26/16 at 06:59; Status DC Potassium Chloride 15 meq/ Sodium Bicarbonate 12.5 meq/Parenteral Electrolytes 520 ml @ 520 mls/hr 1X PERIOP ONCE IRR Last administered on 09/26/16 11:02; Start 09/26/16 at 06:00; Stop 09/26/16 at 06:59; Status DC Vancomycin HCl (Vanco) 10 gm 1X ONCE CEMENT Last administered on 09/26/16 09: 00; Start 09/26/16 at 06:00; Stop 09/26/16 at 06:01; Status DC Zolpidem Tartrate (Ambien) 10 mg HS PO ; Start 09/25/16 at 21:00; Stop 09/25/16 at 21:00; Status DC Lorazepam (Ativan) 1 mg PRN Q6HRS PRN PO ANXIETY / AGITATION Last administered on 09/30/16 06:21; Start 09/25/16 at 12:30 Zolpidem Tartrate (Ambien) 5 mg PRN QHS PRN PO INSOMNIA, MRP X1 IN 30 MIN; Start 09/25/16 at 12:30 Etomidate (Amidate) 20 mg STK-MED ONCE IV ; Start 09/25/16 at 21:28; Stop at 21:29; Status DC Phenylephrine HCl (Tyrel-Synephrine Inj) 10 mg STK-MED ONCE .ROUTE ; Start at 21:28; Stop 09/25/16 at 21:29; Status DC Propofol 0 ml @ As Directed STK-MED ONCE IV ; Start 09/25/16 at 21:28; Stop at 21:29; Status DC Nitroglycerin/ Dextrose 250 ml @ As Directed STK-MED ONCE IV ; Start 09/25/16 at 21:28; Stop 09/25/16 at 21:29; Status DC Epinephrine HCl (Adrenalin) 1 mg STK-MED ONCE .ROUTE ; Start 09/25/16 at 21:28; Stop 09/25/16 at 21:29; Status DC Rocuronium [place] (Zemuron) 100 mg STK-MED ONCE .ROUTE ; Start 09/25/16 at 21: 28; Stop 09/25/16 at 21:29; Status DC Heparin Sodium (Porcine) 30,000 unit STK-MED ONCE .ROUTE ; Start 09/25/16 at 21: 29; Stop 09/25/16 at 21:30; Status DC Ephedrine Sulfate 50 mg STK-MED ONCE IV ; Start 09/25/16 at 21:29; Stop at 21:30; Status DC Aminocaproic Acid (Amicar) 5,000 mg STK-MED ONCE IV ; Start 09/25/16 at 21:29; Stop 09/25/16 at 21:30; Status DC Aminocaproic Acid (Amicar) 5,000 mg STK-MED ONCE IV ; Start 09/25/16 at 21:30; Stop 09/25/16 at 21:31; Status DC Isoflurane (Isoflurane) 90 ml STK-MED ONCE IH ; Start 09/25/16 at 21:47; Stop at 21:48; Status DC Aminocaproic Acid (Amicar) 5,000 mg STK-MED ONCE IV ; Start 09/25/16 at 21:57; Stop 09/25/16 at 21:58; Status DC Heparin Sodium/ Dextrose 500 ml @ 0 mls/hr CONT PRN IV SEE I/O RECORD; Start at 22:15; Stop 09/25/16 at 23:59; Status DC Nitroglycerin/ Dextrose 250 ml @ 0 mls/hr CONT PRN IV SEE I/O RECORD; Start at 22:15; Stop 09/26/16 at 02:00; Status DC Cefazolin Sodium/ Dextrose 50 ml @ As Directed STK-MED ONCE IV ; Start 09/26/16 at 06:37; Stop 09/26/16 at 06:38; Status DC Midazolam HCl (Versed) 5 mg STK-MED ONCE .ROUTE ; Start 09/26/16 at 07:10; Stop 09/26/16 at 07:11; Status DC Sufentanil Citrate (Sufenta) 100 mcg STK-MED ONCE .ROUTE ; Start 09/26/16 at 07: 10; Stop 09/26/16 at 07:11; Status DC Vancomycin HCl (Vanco) 10 gm 1X ONCE CEMENT ; Start 09/26/16 at 07:15; Stop 09/26 at 07:16; Status Cancel Cellulose 1 each STK-MED ONCE .ROUTE Last administered on 09/26/16 09:00; Start 09/26/16 at 07:13; Stop 09/26/16 at 07:14; Status DC Papaverine HCl 60 mg STK-MED ONCE .ROUTE Last administered on 09/26/16 09:00; Start 09/26/16 at 07:13; Stop 09/26/16 at 07:14; Status DC Aspirin (Aspirin) 300 mg STK-MED ONCE .ROUTE Last administered on 09/26/16 13: 49; Start 09/26/16 at 07:13; Stop 09/26/16 at 07:14; Status DC Sodium Chloride (Sodium Chloride) 50 ml STK-MED ONCE IJ Last administered on 09:00; Start 09/26/16 at 07:13; Stop 09/26/16 at 07:14; Status DC Cefazolin Sodium 1 gm/Sodium Chloride 500 ml @ 500 mls/hr 1X PERIOP ONCE IRR Last administered on 09/26/16 09:00; Start 09/26/16 at 08:00; Stop 09/26/16 at 08: 59; Status DC Sufentanil Citrate (Sufenta) 100 mcg STK-MED ONCE .ROUTE ; Start 09/26/16 at 09: 21; Stop 09/26/16 at 09:22; Status DC Rocuronium [place] (Zemuron) 50 mg STK-MED ONCE .ROUTE ; Start 09/26/16 at 10:37 ; Stop 09/26/16 at 10:38; Status DC Insulin Human Regular 150 unit/ Sodium Chloride 151.5 ml @ 7.33 mls/hr 1X ONCE IV Last administered on 09/26/16 23:09; Start 09/26/16 at 11:30; Stop at 08:10; Status DC Midazolam HCl (Versed) 2 mg STK-MED ONCE .ROUTE ; Start 09/26/16 at 12:14; Stop 09/26/16 at 12:15; Status DC Protamine Sulfate 50 mg STK-MED ONCE IV ; Start 09/26/16 at 12:22; Stop 09/26/16 at 12:23; Status DC Protamine Sulfate 250 mg STK-MED ONCE IV ; Start 09/26/16 at 12:22; Stop 09/26/16 at 12:23; Status DC Protamine Sulfate 50 mg STK-MED ONCE IV ; Start 09/26/16 at 12:23; Stop 09/26/16 at 12:24; Status DC Protamine Sulfate 250 mg STK-MED ONCE IV ; Start 09/26/16 at 12:23; Stop 09/26/16 at 12:24; Status DC Heparin Sodium (Porcine) (Heparin Sodium) 10,000 unit STK-MED ONCE .ROUTE ; Start 09/26/16 at 12:48; Stop 09/26/16 at 12:49; Status DC Lidocaine HCl (Lidocaine HCl 2% Abboject) 100 mg STK-MED ONCE .ROUTE ; Start 09/26/16 at 12:48; Stop 09/26/16 at 12:49; Status DC Mannitol (Mannitol) 12.5 g STK-MED ONCE .ROUTE ; Start 09/26/16 at 12:48; Stop at 12:49; Status DC Calcium Chloride 1,000 mg STK-MED ONCE IV ; Start 09/26/16 at 12:48; Stop at 12:49; Status DC Sodium Bicarbonate 50 meq STK-MED ONCE .ROUTE ; Start 09/26/16 at 12:48; Stop 09/26/16 at 12:49; Status DC Albumin Human 100 ml @ As Directed STK-MED ONCE IV ; Start 09/26/16 at 12:48; Stop 09/26/16 at 12:49; Status DC Heparin Sodium (Porcine) 30,000 unit STK-MED ONCE .ROUTE ; Start 09/26/16 at 12: 48; Stop 09/26/16 at 12:49; Status DC Cefazolin Sodium/ Dextrose 50 ml @ As Directed STK-MED ONCE IV ; Start 09/26/16 at 13:10; Stop 09/26/16 at 13:11; Status DC Sodium Chloride (Normal Saline Flush) 3 ml PRN Q12HR PRN IV AFTER MEDS AND BLOOD DRAWS; Start 09/26/16 at 13:45 Lactated Ringer's 1,000 ml @ 30 mls/hr Q24H IV Last administered on 09/27/16 13:42; Start 09/26/16 at 13:40; Stop 09/28/16 at 10:51; Status DC Insulin Human Regular 150 unit/ Sodium Chloride 151.5 ml @ 0 mls/hr CONT PRN PRN IV SEE I/O RECORD; Start 09/26/16 at 13:45; Stop 09/27/16 at 12:57; Status DC Dextrose (Dextrose 50%-Water Syringe) 25 gm PRN Q15MIN PRN IV LOW BLOOD SUGAR; Start 09/26/16 at 13:45; Stop 09/27/16 at 12:57; Status DC Info 1 ea CONT PRN PRN MC SEE COMMENTS; Start 09/26/16 at 13:45; Stop 09/28/16 at 10:51; Status DC Info 1 ea CONT PRN PRN MC SEE COMMENTS; Start 09/26/16 at 13:45; Stop 09/28/16 at 10:51; Status DC Magnesium Sulfate/ Dextrose 100 ml @ 100 mls/hr PRN DAILY PRN IV FOR MAG < 2.2 Last administered on 09/27/16 07:49; Start 09/26/16 at 13:45 Famotidine (Pepcid) 20 mg BID IVP Last administered on 09/26/16 20:31; Start at 21:00; Stop 09/27/16 at 09:09; Status DC Ondansetron HCl (Zofran) 4 mg PRN Q4HRS PRN IV NAUSEA/VOMITING 1ST CHOICE; Start 09/26/16 at 13:45 Metoclopramide HCl (Reglan) 10 mg PRN Q6HRS PRN IV NAUSEA/VOMITING 2ND CHOICE Last administered on 09/27/16 16:27; Start 09/26/16 at 13:45 Morphine Sulfate 2 mg PRN Q1HR PRN IV PAIN Last administered on 09/27/16 08:20 ; Start 09/26/16 at 13:45; Stop 09/27/16 at 09:09; Status DC Acetaminophen (Tylenol) 650 mg PRN Q4HRS PRN PO MILD PAIN / TEMP; Start at 13:45 Acetaminophen (Acetaminophen Supp) 650 mg PRN Q4HRS PRN AR MILD PAIN / TEMP; Start 09/26/16 at 13:45 Meperidine HCl (Demerol) 12.5 mg PRN Q15MIN PRN IV SHIVERING; Start 09/26/16 at 13:45; Stop 09/27/16 at 09:09; Status DC Propofol 100 ml @ 0 mls/hr CONT PRN PRN IV POSTOP SEDATION UNTIL EXTUBATE; Start 09/26/16 at 13:45; Stop 09/26/16 at 18:35; Status DC Senna/Docusate Sodium (Senna Plus) 1 tab BID PO Last administered on 09/29/16 08:12; Start 09/26/16 at 21:00 Bisacodyl (Dulcolax Supp) 10 mg PRN DAILY PRN AR NO BOWEL MOVEMENT; Start at 13:45 Aspirin (Ecotrin) 325 mg DAILYWBKFT PO Last administered on 09/30/16 09:21; Start 09/27/16 at 08:00 Metoprolol Tartrate (Lopressor) 25 mg BID PO ; Start 09/27/16 at 09:00; Stop 09/27 at 13:04; Status DC Clevidipine 100 ml @ 0 mls/hr CONT PRN IV PER PROTOCOL; Start 09/26/16 at 13:45 ; Stop 09/27/16 at 09:09; Status DC Oxycodone/ Acetaminophen (Percocet 5/325) 1 tab PRN Q4HRS PRN PO MILD PAIN Last administered on 09/29/16 20:49; Start 09/26/16 at 13:45 Oxycodone/ Acetaminophen (Percocet 5/325) 2 tab PRN Q4HRS PRN PO MODERATE PAIN , SEVERE PAIN Last administered on 09/30/16 12:57; Start 09/26/16 at 13:45 Cefazolin Sodium 1 gm/Sodium Chloride 50 ml @ 100 mls/hr Q8H IV Last administered on 09/28/16 00:17; Start 09/26/16 at 16:30; Stop 09/28/16 at 00:59; Status DC Albumin Human 500 ml @ 125 mls/hr 1X ONCE IV ; Start 09/26/16 at 13:45; Stop at 14:07; Status DC Albumin Human 500 ml @ 125 mls/hr 1X PRN PRN IV CI<2.0 AND CVP<5; Start at 13:45; Status Cancel Albumin Human 500 ml @ 125 mls/hr 1X PRN PRN IV CI<2.0 AND CVP<5; Start at 13:45; Status Cancel Albumin Human 500 ml @ 125 mls/hr 1X PRN PRN IV CI<2.0 AND CVP<5; Start at 13:45; Status Cancel Albumin Human 500 ml @ 125 mls/hr 1X PRN PRN IV CI<2.0 AND CVP<5; Start at 14:07; Status Cancel Sodium Bicarbonate 50 meq 1X ONCE IV Last administered on 09/26/16 15:32; Start 09/26/16 at 15:15; Stop 09/26/16 at 15:17; Status DC Epinephrine HCl (Epinephrine Syringe) 1 mg 1X ONCE IV Last administered on 09/26 15:33; Start 09/26/16 at 15:15; Stop 09/26/16 at 15:17; Status DC Calcium Chloride 1,000 mg 1X ONCE IV Last administered on 09/26/16 15:34; Start 09/26/16 at 15:15; Stop 09/26/16 at 15:17; Status DC Epinephrine HCl 4 mg/Sodium Chloride 254 ml @ 0 mls/hr CONT PRN IV SEE I/O RECORD Last administered on 09/26/16 15:49; Start 09/26/16 at 15:30; Stop at 09:09; Status DC Albumin Human 250 ml @ 62.5 mls/hr CONT PRN IV SEE COMMENTS Last administered on 09/26/16 15:40; Start 09/26/16 at 15:30; Stop 09/27/16 at 09:09; Status DC Potassium Chloride 50 ml @ 0 mls/hr Q1H IV Last administered on 09/26/16 18:45 ; Start 09/26/16 at 16:45; Stop 09/26/16 at 18:46; Status DC Hydromorphone HCl (Dilaudid) 0.5 mg PRN Q4HRS PRN IV PAIN Last administered on 09/27/16 03:04; Start 09/26/16 at 17:30; Stop 09/27/16 at 12:57; Status DC Famotidine (Pepcid) 20 mg BID PO Last administered on 09/30/16 09:21; Start 09/27/16 at 10:00 Metoprolol Tartrate (Lopressor) 12.5 mg BID PO ; Start 09/27/16 at 21:00; Status UNV Furosemide (Lasix) 20 mg BID IVP ; Start 09/27/16 at 13:00; Status UNV Metoprolol Tartrate (Lopressor) 12.5 mg BID PO Last administered on 09/30/16 09 :22; Start 09/27/16 at 21:00 Furosemide (Lasix) 20 mg [id number] IVP Last administered on 09/29/16 13:03; Start 09/27/16 at 14:00; Stop 09/29/16 at 14:04; Status DC Hydromorphone HCl (Dilaudid) 0.5 mg PRN Q1HR PRN IV PAIN Last administered on 16:24; Start 09/27/16 at 14:00 Potassium Chloride 50 ml @ 50 mls/hr Q1H IV Last administered on 09/28/16 08:13 ; Start 09/28/16 at 07:00; Stop 09/28/16 at 08:59; Status DC Potassium Chloride (Klor-Con) 20 meq 1X ONCE PO ; Start 09/28/16 at 10:15; Stop 09/28/16 at 10:31; Status DC Ketorolac Tromethamine (Toradol) 15 mg PRN Q6HRS PRN IV PAIN Last administered on 09/28/16 12:28; Start 09/28/16 at 10:45; Stop 09/29/16 at 11:00; Status DC Magnesium Sulfate/ Dextrose 50 ml @ 25 mls/hr 1X ONCE IV Last administered on 09/28/16 12:29; Start 09/28/16 at 11:30; Stop 09/28/16 at 13:29; Status DC Al Hydroxide/Mg Hydroxide (Mylanta Plus Xs) 30 ml PRN Q4HRS PRN PO HEARTBURN / GAS; Start 09/28/16 at 12:30 Magnesium Hydroxide (Milk Of Magnesia) 2,400 mg PRN DAILY PRN PO CONSTIPATION; Start 09/28/16 at 12:30 Nitroglycerin (Nitrostat) 0.4 mg PRN Q5MIN PRN SL CHEST PAIN; Start 09/28/16 at 12:30 Calcium Chloride 1,000 mg STK-MED ONCE IV ; Start 09/28/16 at 21:00; Stop at 08:20; Status DC Epinephrine HCl (Epinephrine Syringe) 1 mg STK-MED ONCE .ROUTE ; Start 09/28/16 at 21:00; Stop 09/29/16 at 08:20; Status DC Sodium Bicarbonate 50 meq STK-MED ONCE .ROUTE ; Start 09/28/16 at 21:00; Stop 09/29/16 at 08:20; Status DC Potassium Chloride (Klor-Con) 40 meq 1X ONCE PO Last administered on 09/29/16 11:25; Start 09/29/16 at 11:15; Stop 09/29/16 at 11:20; Status DC Potassium Chloride (Klor-Con) 20 meq 1X ONCE PO ; Start 09/29/16 at 18:00; Stop 09/29/16 at 18:00; Status DC Multivitamins (Thera M Plus) 1 tab DAILY PO Last administered on 09/30/16 09:21 ; Start 09/29/16 at 13:00 Vitamin B Complex (Folbic Tablet) 1 tab DAILY PO Last administered on 09/30/16 09:21; Start 09/29/16 at 12:45 Magnesium Sulfate/ Dextrose 50 ml @ 25 mls/hr 1X ONCE IV Last administered on 09/29/16 13:04; Start 09/29/16 at 13:00; Stop 09/29/16 at 14:59; Status DC Active Scripts Active Oxycodone-Acetaminophen 5-325 (Oxycodone Hcl/Acetaminophen) 1 Each Tablet 1-2 Tab PO PRN Q6HRS PRN MDD 6 TABS SIG: ONE OR TWO TABS EVERY 6 HOURS NEEDED FOR INCISIONAL PAIN Atorvastatin Calcium 40 Mg Tablet 80 Mg PO QHS 30 Days SIG: ONE TAB AT BEDTIME Metoprolol Tartrate 25 Mg Tablet 25 Mg PO BID SIG: ONE HALF TAB EVERY 12 HOURS Aspirin Ec (Aspirin) 325 Mg Tablet. 325 Mg PO DAILYWBKFT 30 Days SIG: ONE TAB DAILY Reported Atorvastatin Calcium 80 Mg Tablet 40 Mg PO HS Vitals/I & O Vital Sign - Last 24 Hours 09/29/16 09/29/16 09/29/16 09/29/16 15:00 18:23 19:00 19:15 Temp 98.7 98.1 98.1 98.7 98.1 98.1 Pulse 95 95 95 Resp 18 16 20 20 B/P (MAP) 110/58 (75) 106/64 (78) 106/64 (78) Pulse Ox 96 94 94 O2 Delivery Room Air Room Air Room Air Room Air 09/29/16 09/29/16 09/29/16 09/29/16 20:18 20:48 20:49 21:49 Pulse 95 Resp 20 20 B/P (MAP) 106/64 O2 Delivery Room Air Room Air 09/29/16 09/30/16 09/30/16 09/30/16 23:23 03:30 06:59 08:00 Temp 97.8 98.5 98.5 97.8 98.5 98.5 Pulse 79 86 87 Resp 20 20 20 B/P (MAP) 94/45 (61) 89/53 (65) 95/57 (70) Pulse Ox 94 90 91 O2 Delivery Room Air Room Air Room Air Room Air 09/30/16 09/30/16 09/30/16 09:22 10:38 12:57 Pulse 87 84 Resp 18 B/P (MAP) 95/57 110/74 (86) Pulse Ox 95 O2 Delivery Room Air Room Air Intake and Output 09/29/16 09/29/16 09/30/16 15:00 23:00 07:00 Intake Total 240 ml 700 ml Output Total 300 ml Balance -60 ml 700 ml PIOTR LOVE MD September 30, 2016 13:10
--- NOTE | 2016-09-30 13:14 | PDOC3 ---
Discharge Summary Visit Information Date of Admission: Sep 22, 2016 Date of Discharge: September 30, 2016 Admitting Diagnosis: chest pain, angina Final Diagnosis 1. NSTEMI 2 vessel CAD on cath 2. CABG with SVG to LAD and SVG to D1 3. HLD 4. tobacco abuse d0 5. ETOH use daily 6. hypomagnesemia, hypokalemia 7. anemia, expected post op Problems Medical Problems: (1) CAD (coronary artery disease) Status: Acute (2) NSTEMI (non-ST elevated myocardial infarction) Status: Acute Brief Hospital Course Allergies Allergies Coded Allergies Type Severity Reaction Last Updated Verified No Known Drug Allergies 09/26/16 No Vital Signs Vital Signs Date Time Temp Pulse Resp B/P (MAP) Pulse Ox O2 Delivery O2 Flow Rate FiO2 09/30/16 12:57 Room Air 09/30/16 10:38 84 18 110/74 (86) 95 09/30/16 06:59 98.5 98.5 Lab Results Laboratory Tests Test 09/29/16 03:20 White Blood Count 10.6 x10^3/uL (4.0-11.0) Red Blood Count 2.27 x10^6/uL (4.30-5.70) Hemoglobin 8.0 g/dL (13.0-17.5) Hematocrit 22.4 % (39.0-53.0) Mean Corpuscular Volume 99 fL (79-100) Mean Corpuscular Hemoglobin 35 pg (25-35) Mean Corpuscular Hemoglobin Concent 36 g/dL (31-37) Red Cell Distribution Width 13.4 % (11.5-14.5) Platelet Count 127 x10^3/uL (140-400) Neutrophils (%) (Auto) 71 % (31-73) Lymphocytes (%) (Auto) 16 % (24-48) Monocytes (%) (Auto) 10 % (0-9) Eosinophils (%) (Auto) 3 % (0-3) Basophils (%) (Auto) 1 % (0-3) Neutrophils # (Auto) 7.6 x10^3uL (1.8-7.7) Lymphocytes # (Auto) 1.7 x10^3/uL (1.0-4.8) Monocytes # (Auto) 1.0 x10^3/uL (0.0-1.1) Eosinophils # (Auto) 0.3 x10^3/uL (0.0-0.7) Basophils # (Auto) 0.1 x10^3/uL (0.0-0.2) Sodium Level 134 mmol/L (136-145) Potassium Level 3.3 mmol/L (3.5-5.1) Chloride Level 97 mmol/L (98-107) Carbon Dioxide Level 33 mmol/L (21-32) Anion Gap 4 (6-14) Blood Urea Nitrogen 16 mg/dL (8-26) Creatinine 0.9 mg/dL (0.7-1.3) Estimated GFR (Cockcroft-Gault) 89.0 Glucose Level 100 mg/dL (70-99) Calcium Level 8.2 mg/dL (8.5-10.1) Magnesium Level 1.8 mg/dL (1.8-2.4) Brief Hospital Course Mr. Coyne is a 51 old admit angina, mild trop increase to 0.3 taken to cath 2 vessel disease, would be highrisk for PCI, taken to CABG, Dr. Perez, pt did well, normal post-op problems listed above, pt felt well at DC Discharge Information Condition at Discharge: Improved Follow Up: Weeks Disposition/Orders: D/C to Home Scheduled Aspirin (Aspirin Ec), 325 MG PO [id number] Atorvastatin Calcium (Atorvastatin Calcium), 40 MG PO HS, (Reported) Atorvastatin Calcium (Atorvastatin Calcium), 80 MG PO QHS Metoprolol Tartrate (Metoprolol Tartrate), 25 MG PO BID Scheduled PRN Oxycodone Hcl/Acetaminophen (Oxycodone-Acetaminophen 5-325), 1-2 TAB PO PRN Q6HRS PRN for PAIN Discontinued Medications Aspirin (Lo-Dose Aspirin EC), 81 MG PO, (Reported) Atenolol (Atenolol), 1 TAB PO DAILY, (Reported) Isosorbide Mononitrate (Isosorbide Mononitrate Er), 1 TAB PO DAILY Lisinopril (Lisinopril), 1 TAB PO DAILY, (Reported) Nitroglycerin (NITROGLYCERIN SubLingual), 1 TAB SL UD Tamsulosin Hcl (Tamsulosin Hcl), 0.4 MG PO DAILY, (Reported) Patient Instructions Patient Instructions time > 30 min PIOTR LOVE MD September 30, 2016 13:14
== END 2016-09-30 14:50 | disposition home or self-care (01) | DRG 234 ==
LOC: ER 10:48 → 2 SOUTH 12:06 → 1 WEST ICU 15:41 → 2 NORTH 09-24 17:15 → 1 WEST ICU 09-26 11:35 → 2 SOUTH 09-28 18:46
PROVIDERS: ADMIT Internal Medicine; ATTEND Internal Medicine
PROC: 4A023N7 Measurement of Cardiac Sampling and Pressure, Left Heart, Percutaneous Approach (ICD-10-PCS; 2016-09-22)
PROC: B2111ZZ Fluoroscopy of Multiple Coronary Arteries using Low Osmolar Contrast (ICD-10-PCS; 2016-09-22)
PROC: 0W9B30Z Drainage of Left Pleural Cavity with Drainage Device, Percutaneous Approach (ICD-10-PCS; 2016-09-26)
PROC: 5A1221Z Performance of Cardiac Output, Continuous (ICD-10-PCS; 2016-09-26)
PROC: B246ZZ4 Ultrasonography of Right and Left Heart, Transesophageal (ICD-10-PCS; 2016-09-26)
PROC: 0211093 Bypass Coronary Artery, Two Arteries from Coronary Artery with Autologous Venous Tissue, Open Approach (ICD-10-PCS; principal; 2016-09-26 07:30)
PROC: 06BQ4ZZ Excision of Left Saphenous Vein, Percutaneous Endoscopic Approach (ICD-10-PCS; 2016-09-26 07:30)
DX: I21.4 Non-ST elevation (NSTEMI) myocardial infarction (principal); D62 Acute posthemorrhagic anemia; F10.239 Alcohol dependence with withdrawal, unspecified; I47.2 Ventricular tachycardia; E11.9 Type 2 diabetes mellitus without complications; E78.5 Hyperlipidemia, unspecified; E83.42 Hypomagnesemia; E87.6 Hypokalemia; F17.200 Nicotine dependence, unspecified, uncomplicated; F41.9 Anxiety disorder, unspecified; G47.00 Insomnia, unspecified; I10 Essential (primary) hypertension; I25.119 Atherosclerotic heart disease of native coronary artery with unspecified angina pectoris; K21.9 Gastro-esophageal reflux disease without esophagitis; Z82.49 Family history of ischemic heart disease and other diseases of the circulatory system; Z95.5 Presence of coronary angioplasty implant and graft
CPT/HCPCS: 36415; 36600; 71010; 71250; 80047; 80048; 80061; 80076; 82803; 82805; 82947; 83690; 83735; 83880; 84132; 84484; 85007; 85027; 85347; 85384; 85520; 85610; 85730; 86850; 86900; 86901; 86920; 87641; 92920; 92921; 93005; 93306; 93318; 93325; 93454; 93880; 93970; 94002; 94250; 96361; 96374; 96375; 96376; 99406; C1725; C1769; C1781; C1887; C1892; J0171; J0690; J1170; J1644; J1815; J1885; J2060; J2150; J2250; J2270; J2405; J2440; J2704; J2765; J3010; J3370; J3475; J3480; J3490; J7030; J7040; J7050; J7060; J7120; P9041; P9046; Q9967; S0028; 97116; 97530; 99285-25; J3246

== ENCOUNTER → 2016-10-21 | Outpatient (CLI) | payer SELFPAY ==
[2016-09-30 10:38] VITALS: BP 110/74
[~2016-10-21] MED LIST changes: +ASPI-171 PO; +ASPI325T11 PO; +ATEN25TA PO; +ATOR40TA59 PO; +LISI10TA2 PO; +METO25TA4 PO; +OXYC1TAB7 PO; +TAMS0.4C2 PO
--- NOTE | 2016-10-21 13:12 | RAD ---
Indication status post bypass graft one week ago. PA and lateral views of the chest were obtained and are compared to an exam 09/29/2016. Postoperative changes are noted. Heart size and pulmonary vessels are normal. The lungs are clear of acute infiltrates. There is slight blunting at the left costophrenic angle probably reflecting scar. A tiny pleural effusion is not entirely excluded. IMPRESSION: No acute finding apparent in the chest
== END | disposition home or self-care (01) ==
LOC: RAD 12:43
PROVIDERS: ATTEND Thoracic Surgery (Cardiothoracic Vascular Surgery)
DX: Z95.1 Presence of aortocoronary bypass graft (principal)
CPT/HCPCS: 71020